=== PATIENT | female | born 1965 | race Caucasian/White ===

== ENCOUNTER → 2017-12-12 15:06 | Outpatient (CLI) | payer OTHER, SELFPAY ==
--- NOTE | 2017-12-12 15:12 | XR_ITS ---
XR hip LT 2-3V w/pelvis HISTORY: ITS.REASON: LEFT HIP PAIN ORDERING PHYSICIAN: Rikc Salcedo MD PATIENT AGE: 52 years COMPARISON: 09/29/2014 FINDINGS: No acute fracture or dislocation. There are mild osteoarthritic changes of the left hip. There are prominent fairly well-circumscribed cystic changes involving the supra-acetabular region. This measures approximately 3 x 2.6 cm. Etiology is indeterminate. Somewhat more extensive and worsening the joint than what one would expect for subarticular cystic change. Otherwise negative. IMPRESSION: 1. Mild osteoarthritis of left hip. 2. Multilocular cystic lesion of the supra-acetabular area on the left. This was present on an older CT scan. This may be slightly more extensive however, it is difficult to compare the plain film with a CT scan. Therefore, would recommend CT scan of the pelvis for better comparison and to ensure this is not progressing in this patient with left hip pain.
== END ==
PROVIDERS: PCP Internal Medicine Adolescent Medicine; Visit Provider Internal Medicine Adolescent Medicine
DX: M25.552 Pain in left hip (principal)
CPT/HCPCS: 73502

== ENCOUNTER → 2017-12-24 10:12 | Outpatient (CLI) | payer OTHER, SELFPAY ==
--- NOTE | 2017-12-24 10:19 | CT_ITS ---
CT pelvis wo/w con INDICATION: Left hip pain, cystic lesion of the left hip ITS.REASON: LEFT HIP PAIN ORDERING PHYSICIAN: Rick Salcedo MD PATIENT AGE: 52 years COMPARISON: 12/12/2017, 09/29/2014 TECHNIQUE: Axial images are obtained without and with contrast. Sagittal and coronal reformatted images are reviewed as well. All CT scans at the facility use one or more dose reduction, viz: automated exposure control; ma/kV adjustment per patient size (including targeted exams where dose is matched to indication; i.e. head); or iterative reconstruction technique. FINDINGS: There is a well-defined multilocular lucent lesion involving the supra-acetabular region of the left hip . No obvious internal matrix. The lesion measures up to 2 cm transverse and 2 cm cephalad to caudad with a anterior component which extends cephalad to caudad through 3.3 cm. This lesion is slightly larger than when compared to a CT scan of the abdomen and pelvis of 09/29/2014 however the margins are well-circumscribed. This does not have an aggressive appearance and no obvious internal matrix. At least one small component of the lesion extends to the articular surface laterally. This could represent a complex geode/subarticular cyst. It does not demonstrate contrast enhancement. Previously the largest portion of the nodule measured 1.7 x 1.2 cm with the anterior extension of the lesion of approximately 3 cm. There is no evidence of the soft tissue component. No fracture or break through of the lesion into the cortex. No periosteal reaction. No other significant anomalies evident. IMPRESSION: Well-circumscribed lesion of the left supra-acetabular area as described above is slightly larger when compared September 29, 2014. The lesion however has a benign appearance and may represent a complex subarticular cyst. Giant cell tumor, fibrous dysplasia, or aneurysmal bone cyst is considered in the differential diagnosis. Bone scan may be of further value to determine activity of the lesion. If bone scan is not performed then, would recommend a [address] follow-up to confirm short-term stability
== END ==
PROVIDERS: Family Provider Internal Medicine Adolescent Medicine; PCP Internal Medicine Adolescent Medicine; Visit Provider Internal Medicine Adolescent Medicine
DX: M25.552 Pain in left hip (principal)
CPT/HCPCS: 72194; Q9967

== ENCOUNTER 2018-01-23 15:36 | Observation (INO) ==
--- NOTE | 2018-01-23 16:00 | Consult Report ---
History of Present Illness Consult date: 01/23/18 Requesting physician: Rick Salcedo Consult reason: chest pain Chief complaint: chest pain Additional Medical History:: 1. Tobacco use, 1 pack per day 35 years 2. Depression 3. Strong family history for coronary artery disease in both her mother and sister in their 40s and 50s. History of present illness: 52-year-old white female with history of tobacco use and strong family history of coronary artery disease was admitted from Dr. Salcedo's office today for 4 day history of recurrent chest pain. Patient describes the chest pain as substernal with radiation to the left side and into the left arm that lasted for up to 60 minutes at a time. Symptoms resolve with rest or taking ibuprofen. She has been taken an aspirin 81 mg daily for the last 4 days. She denies any history of diabetes, treatment for hypertension or hyperlipidemia. She does have a strong family history of coronary disease in her mother and sister with her sister having an [place] in the last few weeks. She does smoke a pack of cigarettes per day and has for 35 years. Chest discomfort seems to occur more so with daily activities and improves with rest. In Dr. Salcedo's office today patient had an EKG with reported new changes. She was subsequently admitted for further evaluation and treatment. Cardiology consulted for evaluation and treatment. Review of Systems - *Cardiovascular Reports chest pain - *Respiratory Reports shortness of breath - *Gastrointestinal Denies abdominal pain - *Genitourinary Denies abnormal periods - *Musculoskeletal Denies abnormal walking - *Neurologic Denies abnormal walking, Denies lack of coordination Exam - *Routine Neck Exam Absent: JVD, carotid bruit - *Routine Respiratory Exam Present: CTA bilaterally. Absent: rhonchi, wheezes - *Routine Cardiovascular Exam Present: RRR. Absent: murmur, gallop, rubs - *Routine Extremities Exam Absent: edema - *Routine Neurological Exam Present: alert, oriented X3, moving all extremities Assessment and Plan (1) Unstable angina pectoris Current visit: Yes Status: Acute Category: Medical Code(s): I20.0 - Unstable angina (2) Tobacco use Current visit: Yes Status: Acute Category: Social Hx Code(s): Z72.0 - Tobacco use (3) Family history of coronary artery disease Current visit: Yes Status: Acute Category: Medical Code(s): Z82.49 - Family history of ischemic heart disease and other diseases of the circulatory system - Assessment and plan all Dx Assessment and Plan for all problems:: 1. Continue aspirin 81 mg daily and start beta-delmar along with a dose of Lovenox this evening. Patient appears to have unstable angina pectoris and will plan to proceed with left heart catheterization in the a.m. Risks, benefits and procedure explained to the patient and she agrees to proceed. 2. Labwork pending at this time. IF troponins positive, then add Brilinta.
[2018-01-23 16:37] LABS: Alanine Aminotransferase 56 U/L (12-78); Albumin Level 3.8 gm/dL (3.4-5.0); Albumin/Globulin Ratio 0.9 (1.1-1.8); Alkaline Phosphatase 234 U/L (46-116); Anion Gap 14.8 mEq/L (5-15); Aspartate Amino Transferase 21 U/L (15-37); Bilirubin,Total 0.3 mg/dL (0.2-1.0); Blood Urea Nitrogen 16 mg/dL (7-18); Calcium 9.1 mg/dL (8.5-10.1); Carbon Dioxide 25 mmol/L (21.0-32.0); Chloride 105 mmol/L (98-107); Cholesterol 217 mg/dL (140-200); Globulin 4.2 gm/dl (1.3-3.2); Glucose 105 mg/dL (74-106); HDL Cholesterol 43 mg/dL (29-89); LDL Cholesterol 146 mg/dL (0-130); Potassium 3.8 mmoL/L (3.5-5.1); Sodium 141 mmol/L (136-145); Triglycerides 138 mg/dL (30-200); VLDL Cholesterol 28 mg/dL (0-40)
--- NOTE | 2018-01-23 17:42 | History & Physical Report ---
*Admission Date: 01/23/18 *Chief complaint: Chest pain *History of present illness: 52-year-old white female with significant family history of early coronary disease in sister and mother, who came to my office with 5 days of increasing left shoulder and anterior chest pain, worse with exercise and waking her up from sleep. She has no palpitations or edema. Is continuing to smoke cigarettes. In the office EKG showed new anterior changes with some poor R-wave progression. Admitted to hospital for accelerating angina, abnormal EKG and for left heart catheterization evaluation. [facility] History I have reviewed the patient's past medical history: Yes Medical History: Denies:: Cancer, Diabetes Mellitus Type 1, Diabetes Mellitus Type 2, MRSA Other Surgeries: Yes: Cholecystectomy, Hysterectomy-Total Amputation: No Fractures: No - *Social History Educational Level: Completed GED/General Educational Development Smoking Status: Current every day smoker Tobacco Type: cigarettes # Packs/Day (cigarettes): 1 Alcohol Intake: never Occupational Status: employed Housing: house Household Members: spouse - Psychiatric History Expresses thoughts of harming self/others: None Suicide Plan Description: No Plan *Family Hx:: Coronary Artery Disease, Diabetes, Heart Attack Review of Systems - Constitutional Denies body ache(s), Denies chills, Denies daytime sleepiness, Denies excessive sweating - Eyes Denies blind spots, Denies blurry vision, Denies change in vision - ENT Denies abnormal hearing, Denies change in voice, Denies poor balance - *Cardiovascular Reports chest pain, Reports chest pain at rest, Reports chest pain with activity , Reports shortness of breath, Reports shortness of breath with activity, Denies generalized swelling, Denies irregular heart rhythm, Denies leg swelling , Denies lightheadedness, Denies shortness of breath when lying down, Denies rapid, pounding, or irregular heartbeat - *Respiratory Denies change in phlegm color, Denies chest congestion, Denies cough - *Gastrointestinal Denies abdominal pain, Denies belching, Denies change in bowel habits, Denies coffee ground vomit, Denies constipation - *Musculoskeletal Denies abnormal walking, Denies joint pain - Integumentary/Breasts Denies bleeding lesions - *Neurologic Denies abnormal walking, Denies lack of coordination - Psychiatric Reports anxiety, Denies abnormal sleep pattern, Denies lack of enjoyment - Endocrine Denies cold intolerance, Denies excessive sweating, Denies rapid, pounding, or irregular heartbeat Meds Home Medications Medication Instructions Recorded Confirmed Type Vilazodone HCl [Viibryd] 20 mg PO DAILY 01/23/18 01/23/18 History diazePAM [diazePAM 5mg Tablet] 5 mg PO NEEDED PRN 01/23/18 01/23/18 History Allergies Allergy/AdvReac Type Severity Reaction Status Date / Time No Known Allergies Allergy Verified 01/23/18 16:33 Exam Vital signs and Labs for Last 24 Hours: Temp Pulse Resp BP Pulse Ox 97.0 F L 59 L 18 117/75 95 01/23/18 16:06 01/23/18 16:06 01/23/18 16:06 01/23/18 16:06 01/23/18 16:06 Laboratory Results - last 24 hr 01/23/18 15:50: Sodium 141, Potassium 3.8, Chloride 105, Carbon Dioxide 25, Anion Gap 14.8, BUN 16, Creatinine 0.79, Estimated Creat Clear 98, Estimated GFR 76, Est GFR ( Amer) 92, Glucose 105, Calcium 9.1, Magnesium 1.9, Total Bilirubin 0.3, AST 21, ALT 56, Alkaline Phosphatase 234 H, Troponin I < 0.02, Total Protein 8.0, Albumin 3.8, Globulin 4.2 H, Albumin/Globulin Ratio 0.9 L, Triglycerides 138, Cholesterol 217 H, LDL Cholesterol 146 H, VLDL Cholesterol 28, HDL Cholesterol 43, Cholesterol/HDL Ratio 5.0 H I & O for Last 24 hours: Intake & Output 01/21/18 01/22/18 01/23/18 01/24/18 11:59 11:59 11:59 11:59 Weight 164 lb 1 oz - Constitutional no acute distress, obese - *Routine HEENT Exam Head: Present: normocephalic, atraumatic Eye: Present: EOMI, PERRL ENT: Present: mucous membranes moist - *Routine Neck Exam Present: supple, full ROM. Absent: JVD, carotid bruit - *Routine Respiratory Exam Present: CTA bilaterally. Absent: accessory muscle use - *Routine Cardiovascular Exam Present: RRR, Normal S1, Normal S2. Absent: murmur - *Routine Abdominal Exam Present: soft, normoactive bowel sounds. Absent: tenderness - *Routine Extremities Exam Present: full ROM. Absent: cyanosis, clubbing, edema - *Routine Neurological Exam Present: alert, oriented X3, CN II-XII intact H&P: Result - Labs Labs: BMP 01/23/18 15:50 Sodium 141 Potassium 3.8 Chloride 105 Carbon Dioxide 25 BUN 16 Creatinine 0.79 Glucose 105 Calcium 9.1 Cardiac Enzymes 01/23/18 Range/Units 15:50 Troponin I < 0.02 (0.00-0.06) ng/ml Liver Function 01/23/18 Range/Units 15:50 Total Bilirubin 0.3 (0.2-1.0) mg/dL AST 21 (15-37) U/L ALT 56 (12-78) U/L Alkaline Phosphatase 234 H (46-116) U/L Albumin 3.8 (3.4-5.0) gm/dL Assessment and Plan (1) Unstable angina pectoris Current visit: Yes Status: Acute Category: Medical Code(s): I20.0 - Unstable angina (2) Tobacco use Current visit: Yes Status: Acute Category: Social Hx Code(s): Z72.0 - Tobacco use (3) Family history of coronary artery disease Current visit: Yes Status: Acute Category: Medical Code(s): Z82.49 - Family history of ischemic heart disease and other diseases of the circulatory system - Assessment and plan all Dx Assessment and Plan for all problems:: Plan will be to admit to hospital, rule out [place]. Close observation. Cardiology consultation.
--- NOTE | 2018-01-24 07:23 | Pharmacy Consult Notes ---
[facility] Pharmacy VTE Monitoring - Patient Demographics Admission date: 01/24/18 Report Date: 01/24/18 Time: 07:22 Allergies/Adverse Reactions: Patient Allergies No Known Allergies Allergy (Verified 01/23/18 16:33) Height: 1.57 m Weight: 78.982 kg Patient Problems: Current Active Problems Unstable angina pectoris (Acute) Tobacco use (Acute) Family history of coronary artery disease (Acute) - VTE Risk Labs: VTE Related Lab Results BUN 16 mg/dL (7-18) 01/23/18 15:50 Creatinine 0.79 mg/dL (0.55-1.02) 01/23/18 15:50 Estimated Creat Clear 98 mL/min (0-300) 01/23/18 15:50 Was VTE Risk Assessment Performed: Yes VTE Score: 2 VTE Risk Level: Very Low Risk Clinical Trial Participant: No - Prophylaxis VTE Prophylaxis Ordered?: Yes Types of VTE Prophylaxis: TEDS Knee High
--- NOTE | 2018-01-24 07:56 | Progress Note ---
Internal Medicine - PN: Subj *Date: 01/24/18 *Time: 07:55 Interval history: Had some pain overnight that responded to morphine. This was more atypical pain. This morning she has no complaints. Exam Vital signs and Labs for Last 24 Hours: Temp Pulse Resp BP Pulse Ox 97.7 F 65 16 106/69 94 L 01/24/18 04:00 01/24/18 04:00 01/24/18 04:00 01/24/18 04:00 01/24/18 04:00 Laboratory Results - last 24 hr 01/23/18 15:50: Sodium 141, Potassium 3.8, Chloride 105, Carbon Dioxide 25, Anion Gap 14.8, BUN 16, Creatinine 0.79, Estimated Creat Clear 98, Estimated GFR 76, Est GFR ( Amer) 92, Glucose 105, Calcium 9.1, Magnesium 1.9, Total Bilirubin 0.3, AST 21, ALT 56, Alkaline Phosphatase 234 H, Troponin I < 0.02, Total Protein 8.0, Albumin 3.8, Globulin 4.2 H, Albumin/Globulin Ratio 0.9 L, Triglycerides 138, Cholesterol 217 H, LDL Cholesterol 146 H, VLDL Cholesterol 28, HDL Cholesterol 43, Cholesterol/HDL Ratio 5.0 H 01/23/18 18:50: Troponin I < 0.02 01/23/18 22:00: Troponin I < 0.02 I & O for Last 24 hours: Intake & Output 01/21/18 01/22/18 01/23/18 01/24/18 11:59 11:59 11:59 11:59 Intake Total 726 / 726 Balance 726 / 726 Weight 174 lb 2 oz Narrative: Heart rate regular, lungs clear. Abdomen soft. Alert and oriented 3. Assessment and Plan (1) Unstable angina pectoris Current visit: Yes Status: Acute Category: Medical Code(s): I20.0 - Unstable angina (2) Tobacco use Current visit: Yes Status: Acute Category: Social Hx Code(s): Z72.0 - Tobacco use (3) Family history of coronary artery disease Current visit: Yes Status: Acute Category: Medical Code(s): Z82.49 - Family history of ischemic heart disease and other diseases of the circulatory system - Assessment and plan all Dx Assessment and Plan for all problems:: Cardiac catheterization today.
[2018-01-24 08:30] LABS: Basophils % 0.5 % (0.1-2.0); Eosinophils # 0.1 K/mm3 (0.0-0.4); Eosinophils % 1.7 % (0.1-12.0); Hematocrit 44.6 % (37.0-47.0); Hemoglobin 14.1 g/dL (12.2-16.2); Lymphocytes # 3.6 K/mm3 (0.7-4.5); Lymphocytes % 43.2 K/mm3 (10-50); Mean Corpuscular HGB Conc 31.7 g/dL (31.8-35.4); Mean Corpuscular Hemoglobin 28.7 pg (27.0-31.2); Mean Corpuscular Volume 90.6 fl (81-99); Mean Platelet Volume 8.1 fl (7.4-10.4); Monocytes # 0.6 K/mm3 (0.1-1.0); Monocytes % 6.8 % (1.7-9.3); Neutrophils # 3.9 K/mm3 (1.8-7.8); Neutrophils % 47.9 % (37.0-80.0); Platelet Count 210 K/mm3 (142-424); Red Blood Count 4.92 M/mm3 (4.20-5.40); Red Cell Distribution Width 13.8 % (11.5-17.5); White Blood Count 8.2 K/mm3 (4.8-10.8)
--- NOTE | 2018-02-14 09:14 | Discharge Summary ---
General - General Admission date:: 01/23/18 Discharge date: 01/24/18 HPI HPI: 52-year-old white female with significant family history of early coronary disease in sister and mother, who came to my office with 5 days of increasing left shoulder and anterior chest pain, worse with exercise and waking her up from sleep. She has no palpitations or edema. Is continuing to smoke cigarettes. In the office EKG showed new anterior changes with some poor R-wave progression. Admitted to hospital for accelerating angina, abnormal EKG and for left heart catheterization evaluation. Hospital Course Hospital Course: Patient was admitted to hospital, placed on telemetry monitoring, electrolytes and blood counts were normal. Patient was ruled out for myocardial infarction by serial enzymes. Because of her significant anginal pattern and EKG and normality she was subjected to left heart catheterization the following morning on January 24, and the results are noted as below: ANGIOGRAPHIC RESULTS: 1. The left main artery normal 2. The left anterior descending artery has a proximal 30-40% stenosis. The remaining vessel is normal however the mid and distal segments are small caliber 3. The circumflex artery is a nondominant vessel and normal 4. The right coronary artery is a dominant vessel and has a proximal concentric 30% stenosis 5. The CERVANTES ventriculogram reveals normal 65% 6. The left ventricular end-diastolic pressure severely elevated at 35 mmHg IMPRESSION: 1. Moderate proximal LAD disease 2. Mild proximal dominant right coronary artery disease 3. Normal ejection fraction 4. Severe diastolic dysfunction PLAN: 1. Patient would benefit from diuresis 2. Control of hypertension 3. Aspirin 81 mg daily 4. LDL less than 55 5. Risk factor modification Patient did well after the procedure. She was discharged home on medications as noted. Follow-up in our office Objective Vital signs: Temp Pulse Resp BP Pulse Ox 97.7 F 56 L 18 93/64 95 01/24/18 16:12 01/24/18 16:12 01/24/18 16:12 01/24/18 16:12 01/24/18 16:12 Narrative: Physical exam notes on the day of discharge. DS: Diagnosis - Discharge Diagnosis (1) Unstable angina pectoris Status: Ruled-out (2) Tobacco use Status: Acute (3) Family history of coronary artery disease Status: Acute Discharge Plan - Patient Discharge Instructions Patient Instructions: DI for Chest Pain, How to Quit Tobacco Products - Follow up Plan Disposition: Home, Self-Care Prescriptions/Medication Reconciliation: New Omeprazole [Omeprazole 20mg Tab] 20 mg PO DAILY #30 tab Continue Vilazodone HCl [Viibryd] 20 mg PO DAILY #30 tablet Discontinued diazePAM [diazePAM 5mg Tablet] 5 mg PO BIDP PRN PRN Reason: Anxiety No Action atorvastatin 40 mg tablet 40 mg PO HS #30 tab aspirin 81 mg chewable tablet 81 mg PO DAILY #30 tab hydrochlorothiazide 25 mg tablet 25 mg PO DAILY #30 tab
== END 2018-01-24 15:30 | disposition home or self-care (01) ==
LOC: 2ND
PROVIDERS: ADMIT Internal Medicine Adolescent Medicine; ATTEND Internal Medicine Adolescent Medicine

== ENCOUNTER → 2018-02-04 09:36 | Outpatient (CLI) | payer OTHER, SELFPAY ==
[2018-02-04 12:59] LABS: Anion Gap 14.6 mEq/L (5-15); Blood Urea Nitrogen 11 mg/dL (7-18); Calcium 8.8 mg/dL (8.5-10.1); Carbon Dioxide 31 mmol/L (21.0-32.0); Chloride 99 mmol/L (98-107); Creatinine,Serum 0.65 mg/dL (0.55-1.02); Estimated Glomerular Filt Rate 96 ml/min (>60); GFR (African American) 116 ML/MIN (>60); Glucose 126 mg/dL (74-106); Potassium 3.6 mmoL/L (3.5-5.1); Sodium 141 mmol/L (136-145)
== END ==
PROVIDERS: Visit Provider Physician Assistant
DX: I20.0 Unstable angina (principal)
CPT/HCPCS: 36415; 80048

== ENCOUNTER → 2018-03-04 11:45 | Outpatient (CLI) | payer OTHER, SELFPAY ==
--- NOTE | 2018-03-04 11:50 | XR_ITS ---
XR chest 2V HISTORY: ITS.REASON: HTN,H/O TOBACCO USE ORDERING PHYSICIAN: Lily Wilkerson DPM PATIENT AGE: 52 years COMPARISON: PA and lateral chest 01/23/2018 FINDINGS: The cardiomediastinal silhouette and pulmonary vascularity are within normal limits. The lungs are clear without infiltrates, suspicious nodules, or pleural effusions. No acute bony abnormalities. IMPRESSION: Negative chest, no acute finding
== END ==
PROVIDERS: PCP Internal Medicine Adolescent Medicine; Visit Provider Podiatrist
DX: Z01.818 Encounter for other preprocedural examination (principal); S92.501A Displaced unspecified fracture of right lesser toe(s), initial encounter for closed fracture
CPT/HCPCS: 71046

== ENCOUNTER → 2018-03-29 11:01 | Outpatient (CLI) | payer OTHER, SELFPAY ==
--- NOTE | 2018-03-29 11:05 | XR_ITS ---
XR foot wt bearing RT 3V HISTORY: Follow-up surgery ITS.REASON: post-op views ORDERING PHYSICIAN: Lily Wilkerson DPM PATIENT AGE: 52 years COMPARISON: 03/06/2018 FINDINGS: A metal pin is again noted extending from the distal aspect of the distal phalanx into the dorsal and proximal aspect of the proximal phalanx. Nondisplaced oblique fracture of the proximal phalanx once again noted unchanged. There is good alignment of the bony fragments. IMPRESSION: Good alignment status post pin placement through the comminuted fracture proximal phalanx
== END ==
PROVIDERS: PCP Internal Medicine Adolescent Medicine; Visit Provider Podiatrist
DX: Z98.890 Other specified postprocedural states (principal)
CPT/HCPCS: 73630

== ENCOUNTER → 2018-05-08 07:04 | Outpatient (CLI) | payer OTHER, SELFPAY ==
[2018-05-08 14:01] LABS: Alanine Aminotransferase 91 U/L (12-78); Albumin Level 3.4 gm/dL (3.4-5.0); Alkaline Phosphatase 280 U/L (46-116); Aspartate Amino Transferase 61 U/L (15-37); Bilirubin,Direct 0.2 mg/dL (0.0-0.2); Bilirubin,Indirect 0.3 mg/dL (0.0-0.9); Bilirubin,Total 0.5 mg/dL (0.2-1.0); Cholesterol 118 mg/dL (140-200); HDL Cholesterol 39 mg/dL (29-89); LDL Cholesterol 65 mg/dL (0-130); Total Protein,Serum 6.6 gm/dL (6.4-8.2); Triglycerides 70 mg/dL (30-200); VLDL Cholesterol 14 mg/dL (0-40)
== END ==
PROVIDERS: PCP Internal Medicine Adolescent Medicine; Visit Provider Internal Medicine Cardiovascular Disease
DX: I25.10 Atherosclerotic heart disease of native coronary artery without angina pectoris (principal); I10 Essential (primary) hypertension; E78.5 Hyperlipidemia, unspecified; I50.30 Unspecified diastolic (congestive) heart failure
CPT/HCPCS: 36415; 80061; 80076

== ENCOUNTER → 2018-05-13 09:17 | Outpatient (CLI) | payer OTHER, SELFPAY ==
--- NOTE | 2018-05-13 09:19 | CA_ITS ---
PROCEDURE: 2-D M-mode and color Doppler study INDICATIONS FOR THE TEST: Chest pain+ COPD Heart Murmur Tobacco Smoking+ Palpitations+ Fatigue+ Syncope Edema+ Hypertension+Diabetes Mellitus Rheumatic Fever SOB VICKERS Obesity Hyperlipidemia+ Family History HD+ Additional History diastolic dysfunction, CAD PATIENT INFORMATION HEIGHT: 62 WEIGHT: 176 GENDER: Female B/P: 122/68 2-D/M-MODE INTERPRETATION: 2-D MEASUREMENTS OBSERVED VALUES IN CMS Right Ventricular Dimension (RVDd) 2.0 Interventricular Septum (Thickness)(IVsd) 1.0 Left Ventricular Internal Dimensions(LVIDd) 3.1 Left Ventricular Posterior Wall (Thickness)(LVPWd) 1.0 Aortic Root 2.3 Aortic Cusp Separation 2.0 Left Atrial Dimensions (LAD) 2.6 2D 1. Left atrium is normal size, left ventricle is normal size, there is no concentric left ventricular hypertrophy, visually estimated ejection fraction 55% with no regional wall motion abnormality. 2. The right atrium and right ventricle are normal size and contractility. 3. The aortic valve, mitral and tricuspid valvular grossly normal. 4. The pulmonic valve is poorly visualized. 5. No significant pericardial effusion noted. DOPPLER INTERROGATION: Doppler interrogation of the aortic, mitral and tricuspid valvular presence of mild mitral and tricuspid regurgitation, tricuspid regurgitation jet velocity is insufficient for calculation of the right ventricular systolic pressure, diastolic parameters are within normal range. CONCLUSION: 1. Normal left ventricular size, visually estimated ejection fraction 55% with no regional wall motion abnormality, diastolic parameters are within normal range. 2. Mild mitral and tricuspid regurgitation 3. No significant pericardial effusion noted.
== END ==
PROVIDERS: Family Provider Internal Medicine Adolescent Medicine; PCP Internal Medicine Adolescent Medicine; Visit Provider Internal Medicine
DX: I50.30 Unspecified diastolic (congestive) heart failure (principal); I25.10 Atherosclerotic heart disease of native coronary artery without angina pectoris; R07.9 Chest pain, unspecified; Z72.0 Tobacco use; Z82.49 Family history of ischemic heart disease and other diseases of the circulatory system
CPT/HCPCS: 93306

== ENCOUNTER → 2018-06-04 13:26 | Outpatient (CLI) | payer OTHER, SELFPAY ==
--- NOTE | 2018-06-04 13:27 | CT_ITS ---
CT chest wo con HISTORY: ITS.REASON: cough ORDERING PHYSICIAN: Adam Mast MD PATIENT AGE: 52 years COMPARISON: None Technique: Axial images obtained with sagittal and coronal reformats. All CT scans at the facility use one or more dose reduction, viz: automated exposure control, ma/kV adjustment per patient size (including targeted exams where dose is matched to indication, i.e. head), or iterative reconstruction technique. FINDINGS: There are scattered small nodes within the mediastinum. The largest node is in the right precarinal region measuring up to 1.5 x 1 cm. Coronary artery calcifications are present. There is normal heart size without evidence of pericardial effusion. No obvious mediastinal or hilar mass evident. There is mild coarsening of the bronchovascular markings with slight increased density in the mid and lower lung zones having a somewhat mosaic appearance which may be seen with COPD. There is a calcified granuloma in the right middle lobe with associated atelectatic or fibrotic change in the right middle lobe laterally. There is also mild fibrotic change left lung base. No central obstructing lesion is evident. No effusions. No lobar consolidation or collapse. Upper abdominal images show no acute finding. IMPRESSION: 1. There is mild coarsening of the bronchovascular markings with some patchy mosaic attenuation of the mid and lower lung zones. This is nonspecific but can be seen with smoking related lung disease/COPD. Bronchitis with mild pneumonitis is also a consideration. 2. Old granulomatous disease. 3. Coronary artery calcification
== END ==
PROVIDERS: Family Provider Internal Medicine Adolescent Medicine; PCP Internal Medicine Adolescent Medicine; Visit Provider Internal Medicine
DX: I11.9 Hypertensive heart disease without heart failure (principal); I25.10 Atherosclerotic heart disease of native coronary artery without angina pectoris; R05 Cough; Z72.0 Tobacco use
CPT/HCPCS: 71250

== ENCOUNTER → 2019-09-10 07:05 | Outpatient (CLI) | payer OTHER, SELFPAY ==
[2019-09-10 13:46] LABS: Basophils % 0.6 % (0.1-2.0); Eosinophils # 0.3 K/mm3 (0.0-0.4); Eosinophils % 3.3 % (0.1-12.0); Hematocrit 43.8 % (37.0-47.0); Hemoglobin 14.2 g/dL (12.2-16.2); Lymphocytes # 2.7 K/mm3 (0.7-4.5); Lymphocytes % 34.5 % (10-50); Mean Corpuscular HGB Conc 32.6 g/dL (31.8-35.4); Mean Corpuscular Hemoglobin 29.4 pg (27.0-31.2); Mean Corpuscular Volume 90.3 fl (81-99); Mean Platelet Volume 8.8 fl (7.4-10.4); Monocytes # 0.4 K/mm3 (0.1-1.0); Monocytes % 5.4 % (1.7-9.3); Neutrophils # 4.3 K/mm3 (1.8-7.8); Neutrophils % 56.1 % (37.0-80.0); Platelet Count 304 K/mm3 (142-424); Red Blood Count 4.84 M/mm3 (4.20-5.40); Red Cell Distribution Width 14.7 % (11.5-17.5); White Blood Count 7.7 K/mm3 (4.8-10.8)
[2019-09-10 13:54] LABS: Alanine Aminotransferase 120 U/L (12-78); Albumin Level 3.6 gm/dL (3.4-5.0); Albumin/Globulin Ratio 1.1 (1.1-1.8); Alkaline Phosphatase 325 U/L (46-116); Anion Gap 15.6 mEq/L (5-15); Aspartate Amino Transferase 72 U/L (15-37); Bilirubin,Total 0.5 mg/dL (0.2-1.0); Blood Urea Nitrogen 21 mg/dL (7-18); Calcium 8.8 mg/dL (8.5-10.1); Carbon Dioxide 27 mmol/L (21.0-32.0); Chloride 105 mmol/L (98-107); Chol/HDL Ratio 5.8 (1-3.5); Cholesterol 179 mg/dL (140-200); Creatinine,Serum 0.73 mg/dL (0.55-1.02); Estimated Glomerular Filt Rate 83 ml/min (>60); GFR (African American) 101 ML/MIN (>60); Globulin 3.4 gm/dl (1.3-3.2); Glucose 114 mg/dL (74-106); HDL Cholesterol 31 mg/dL (29-89); LDL Cholesterol 125 mg/dL (0-130); Potassium 4.6 mmoL/L (3.5-5.1); Sodium 143 mmol/L (136-145); Triglycerides 117 mg/dL (30-200); VLDL Cholesterol 23 mg/dL (0-40)
[2019-09-11 12:33] LABS: Vitamin D 25 Hydroxy 33.5 ng/mL (30.0-100.0)
[2019-09-11 14:12] LABS: Gamma Glutamyl Transpeptidase 266 U/L (5-55)
[2019-09-20 18:21] LABS: Antinuclear Antibodies, IFA POSITIVE ABNORMAL; Hep A Ab, IgM NEGATIVE; Hepatitis B Core Antibody IgM NEGATIVE; Hepatitis B Surface Antigen NEGATIVE; Hepatitis C Antibody 0.1; Mitochondrial (M2) Antibody <20.0
== END ==
PROVIDERS: PCP Internal Medicine Adolescent Medicine; Visit Provider Internal Medicine Adolescent Medicine
DX: E78.5 Hyperlipidemia, unspecified (principal); E55.9 Vitamin D deficiency, unspecified; R74.8 Abnormal levels of other serum enzymes
CPT/HCPCS: 36415; 80053; 80061; 80074; 82390; 82652; 82977; 85025; 86038; 86256

== ENCOUNTER → 2019-09-15 07:43 | Outpatient (CLI) | payer OTHER, SELFPAY ==
--- NOTE | 2019-09-15 07:47 | US_ITS ---
PROCEDURE: US LIVER CLINICAL INDICATION: ELEVATED LIVER ENZYMES COMPARISON: CHESTWO CT chest wo con from 06/04/2018 FINDINGS: PANCREAS: Unremarkable. No obvious mass or abnormal fluid collection. No ductal dilatation LIVER: There is diffuse heterogeneous echogenicity. No focal liver lesion is.. There is appropriate direction of blood flow within the non dilated portal vein. RIGHT KIDNEY: Unremarkable. Normal size and echogenicity. No hydronephrosis GALLBLADDER: Prior cholecystectomy. Common bile duct is 6 mm. IMPRESSION: Heterogeneous hepatic echogenicity. This is nonspecific and may be better evaluated MRI or CT without and with enhancement. Prior cholecystectomy. Dictated by: Aries Vanessa MD 09/15/2019 10:25 Electronically signed by Aries Vanessa MD in [place] 09/15/2019 10:25
== END ==
PROVIDERS: PCP Internal Medicine Adolescent Medicine; Visit Provider Internal Medicine Adolescent Medicine
DX: R74.8 Abnormal levels of other serum enzymes (principal)
CPT/HCPCS: 76705

== ENCOUNTER → 2019-09-29 07:48 | Outpatient (CLI) | payer OTHER, SELFPAY ==
[2019-10-01 16:28] LABS: Ceruloplasmin 53.5 mg/dL (19.0-39.0)
== END ==
PROVIDERS: Visit Provider Internal Medicine Adolescent Medicine
DX: R74.8 Abnormal levels of other serum enzymes (principal)
CPT/HCPCS: 36415; 82390

== ENCOUNTER → 2019-10-01 07:08 | Outpatient (CLI) | payer OTHER, SELFPAY ==
[2019-10-01 14:15] LABS: Basophils % 0.5 % (0.1-2.0); Eosinophils # 0.2 K/mm3 (0.0-0.4); Hematocrit 42.3 % (37.0-47.0); Lymphocytes # 2.4 K/mm3 (0.7-4.5); Lymphocytes % 29.2 % (10-50); Mean Corpuscular HGB Conc 33.1 g/dL (31.8-35.4); Mean Corpuscular Hemoglobin 28.9 pg (27.0-31.2); Mean Corpuscular Volume 87.2 fl (81-99); Mean Platelet Volume 9.1 fl (7.4-10.4); Monocytes # 0.6 K/mm3 (0.1-1.0); Monocytes % 7.1 % (1.7-9.3); Neutrophils # 4.9 K/mm3 (1.8-7.8); Neutrophils % 60.2 % (37.0-80.0); Platelet Count 295 K/mm3 (142-424); Red Blood Count 4.85 M/mm3 (4.20-5.40); Red Cell Distribution Width 14.2 % (11.5-17.5); White Blood Count 8.1 K/mm3 (4.8-10.8)
[2019-10-01 14:53] LABS: Alanine Aminotransferase 181 U/L (9-52); Albumin Level 3.6 g/dL (3.4-5.0); Alkaline Phosphatase 445 U/L (46-116); Anion Gap 16.5 mEq/L (5-15); Aspartate Amino Transferase 69 U/L (15-37); Bilirubin,Total 0.8 mg/dL (0.2-1.0); Blood Urea Nitrogen 19 mg/dL (7-18); Calcium 8.9 mg/dL (8.5-10.1); Carbon Dioxide 27 mmol/L (21.0-32.0); Chloride 103 mmol/L (98-107); Creatinine,Serum 0.74 mg/dL (0.55-1.02); Estimated Glomerular Filt Rate 82 ml/min (>60); GFR (African American) 99 ML/MIN (>60); Globulin 3.7 gm/dl (1.3-3.2); Glucose 120 mg/dL (74-106); Potassium 4.5 mmoL/L (3.5-5.1); Sodium 142 mmol/L (137-145); Total Protein,Serum 7.3 g/dL (6.4-8.2)
[2019-10-02 07:09] LABS: Testosterone,Total <3 ng/dL (3-41)
[2019-10-02 10:28] LABS: FSH 46.9 mIU/mL (.); LH 23.8 mIU/mL (.)
== END ==
PROVIDERS: Visit Provider Internal Medicine Adolescent Medicine
DX: R73.9 Hyperglycemia, unspecified (principal); R74.8 Abnormal levels of other serum enzymes
CPT/HCPCS: 36415; 80053; 83001; 83002; 83036; 84403; 85025

== ENCOUNTER → 2019-10-17 17:27 | Outpatient (CLI) | payer OTHER, SELFPAY ==
[2019-10-17 17:32] LABS: Microscopic, Urine URINE MICROSCOPIC (MICROSCOPIC)
--- NOTE | 2019-10-17 17:48 | XR_ITS ---
PROCEDURE: XR CHEST 2V CLINICAL HISTORY: FEVER, NIGHT SWEATS Cough, smoker COMPARISON: CXR CHEST(2 VIEWS-NOT PORTABLE) from 02/02/2016 CXR2V XR chest 2V from 01/23/2018 CXR2V XR chest 2V from 03/04/[address] chest wo con from 06/04/2018 FINDINGS: The cardiomediastinal silhouette and pulmonary vascularity are within normal limits. The lungs are clear without infiltrates, suspicious nodules, or pleural effusions. No acute bony abnormalities. IMPRESSION: No acute findings. Dictated by: Aries Vanessa MD 10/17/2019 18:27 Electronically signed by Aries Vanessa MD in [place] 10/17/2019 18:27
[2019-10-17 17:53] LABS: Basophils % 0.3 % (0.1-2.0); Eosinophils # 0.3 K/mm3 (0.0-0.4); Eosinophils % 2.5 % (0.1-12.0); Hematocrit 40.4 % (37.0-47.0); Hemoglobin 13.4 g/dL (12.2-16.2); Lymphocytes # 3.5 K/mm3 (0.7-4.5); Lymphocytes % 29.3 % (10-50); Mean Corpuscular Hemoglobin 28.5 pg (27.0-31.2); Mean Corpuscular Volume 86.3 fl (81-99); Mean Platelet Volume 8.3 fl (7.4-10.4); Monocytes # 0.6 K/mm3 (0.1-1.0); Monocytes % 5.2 % (1.7-9.3); Neutrophils # 7.4 K/mm3 (1.8-7.8); Neutrophils % 62.7 % (37.0-80.0); Platelet Count 325 K/mm3 (142-424); Red Blood Count 4.68 M/mm3 (4.20-5.40); Red Cell Distribution Width 14.2 % (11.5-17.5); White Blood Count 11.8 K/mm3 (4.8-10.8)
[2019-10-17 17:55] LABS: Appearance,Urine CLEAR (Clear); Bilirubin,Urine Negative (Negative); Blood, Urine TRACE-L (Negative); Color,Urine YELLOW (Yellow); Glucose,Urine (UA) Negative (Negative); Ketones,Urine Negative (Negative); Leukocyte Esterase,Urine Negative (Negative); Nitrate,Urine Negative (Negative); PH,Urine 6.5 (5.0-8.5); Protein,Urine Negative (Negative); Urobilinogen,Urine 0.2 EU/dl (0.2)
[2019-10-17 18:45] LABS: Alanine Aminotransferase 81 U/L (12-78); Albumin Level 4.3 g/dl (3.5-5.0); Albumin/Globulin Ratio 1.3 (1.1-1.8); Alkaline Phosphatase 341 U/L (38-126); Anion Gap 14.9 mEq/L (5-15); Aspartate Amino Transferase 46 U/L (14-36); Bilirubin,Total 0.7 mg/dl (0.2-1.3); Blood Urea Nitrogen 10 mg/dl (7-17); Calcium 9.1 mg/dl (8.4-10.2); Carbon Dioxide 27 mmol/L (22.0-30.0); Chloride 97 mmol/L (98-107); Estimated Glomerular Filt Rate 87 ml/min (>60); GFR (African American) 106 ML/MIN (>60); Globulin 3.2 g/dL (1.3-3.2); Glucose 97 mg/dl (74-100); Potassium 3.9 mmoL/L (3.5-5.1); Sodium 135 mmol/L (136-145); Total Protein,Serum 7.5 g/dl (6.3-8.2)
[2019-10-20 10:03] LABS: Cytomegalovirus (CMV) Ab, IgG >10.00 U/mL (0.00-0.59); Cytomegalovirus (CMV) Ab, IgM <30.0 AU/mL (0.0-29.9)
[2019-10-21 11:28] LABS: EBV Ab VCA, IgG >600.0 U/mL (0.0-17.9); EBV Ab VCA, IgM 65.6 U/mL (0.0-35.9)
== END ==
PROVIDERS: Visit Provider Internal Medicine Adolescent Medicine
DX: R50.9 Fever, unspecified (principal); R61 Generalized hyperhidrosis
CPT/HCPCS: 36415; 71046; 80053; 81001; 85025; 86644; 86645; 86665; 87040; 87086

== ENCOUNTER 2019-10-29 12:51 | Outpatient (CLI) | payer OTHER, SELFPAY ==
[2019-10-29 13:15] VITALS: BP 116/68; PULSE 92; RESP 20; TEMP 36.6; O2SAT 95
== END 2019-10-29 13:30 | disposition home or self-care (01) ==
LOC: INF 12:52
PROVIDERS: PCP Internal Medicine Adolescent Medicine; Visit Provider Internal Medicine Adolescent Medicine
DX: S29.011A Strain of muscle and tendon of front wall of thorax, initial encounter (principal); R50.9 Fever, unspecified
CPT/HCPCS: 96372

== ENCOUNTER → 2019-11-03 09:25 | Outpatient (CLI) | payer OTHER, SELFPAY ==
--- NOTE | 2019-11-03 09:30 | CT_ITS ---
PROCEDURE: CT CHEST W CON CLINCAL INDICATION: FEVER AND COUGH Tobacco use, smoker COMPARISON: CHESTWO CT chest wo con from 06/04/2018 CT ABDOMEN PELVIS W CON from 11/03/2019 TECHNIQUE: IV Contrast: 75ml Optiray 350 Axial images obtained with sagittal and coronal reformats. All CT scans at the facility use one or more dose reduction, viz: automated exposure control, ma/kV adjustment per patient size (including targeted exams where dose is matched to indication, i.e. head), or iterative reconstruction technique. FINDINGS: HEART AND MEDIASTINAL STRUCTURES: There are some mildly prominent mediastinal lymph nodes measuring up to 1.8 1.2 cm in the precarinal region and 1.2 by 0.8 cm in the AP window. These are slightly more prominent than when compared to the previous exam. Small nodes are present in the jose alberto as well. A right hilar node measures 2 by 0.9 cm. No evidence of pulmonary embolus or aortic aneurysm. LUNGS AND PLEURAL SPACES: There are changes of COPD. Atelectatic changes are present in the right middle lobe, right lower lobe, left lower lobe, and lingula. No lobar consolidation or collapse. No central obstructing lesions or suspicious masses. BONY STRUCTURES: No acute bony abnormalities apparent. UPPER ABDOMEN: See abdomen report ADDITIONAL FINDINGS: No other significant abnormalities. IMPRESSION: COPD with atelectatic changes and mildly prominent mediastinal and hilar lymph nodes. Consider 3 month follow-up to confirm stability of the lymph nodes Dictated by: Aries Vanessa MD 11/03/2019 16:47 Electronically signed by Aries Vanessa MD in [place] 11/03/2019 16:47
--- NOTE | 2019-11-03 09:30 | CT_ITS ---
PROCEDURE: CT ABDOMEN PELVIS W CON CLINICAL INDICATION: FEVER AND COUGH COMPARISON: ABDPELW/O CT ABD PELVIS W/O CONTRAST from 09/29/[address] pelvis wo/w con from 12/24/2017 TECHNIQUE: IV Contrast: 75ML OPTIRAY 350 Oral Contrast 450ml Redicat Axial images obtained with sagittal and coronal reformats. All CT scans at the facility use one or more dose reduction, viz: automated exposure control, ma/kV adjustment per patient size (including targeted exams where dose is matched to indication, i.e. head), or iterative reconstruction technique. FINDINGS: There are post cholecystectomy changes. Liver has an unremarkable appearance. There is borderline splenomegaly at 13 cm. No focal lesion is evident in the spleen except for multiple calcified granulomas. The pancreas has an unremarkable appearance. There are a few para-aortic and periportal lymph nodes present. There is an area isodense in the along the medial aspect of the pancreatic head measuring approximately 2.4 by 1.6 cm possibly due to an inferior extension of the caudate lobe of the liver versus an area of adenopathy.. This however does not appear significantly changed from 09/29/2014 the adrenal glands and kidneys have an unremarkable appearance. No evidence of appendicitis. There is a mild amount of retained colonic feces. No intestinal obstruction or free air is evident. No pelvic mass or abnormal fluid collection. There are post hysterectomy changes. There is a well-circumscribed cystic lesion involving the left ilium in the super acetabular area which is similar when compared to 12/24/2017. No new bony lesions are identified. IMPRESSION: 1. No acute abdominal or pelvic findings. 2. Moderate amount of retained colonic feces. 3. Stable well-circumscribed lucent lesion of the superior acetabular area on the left and may be due to a prominent subarticular cyst. Giant cell tumor, aneurysmal bone cyst, or fibrous dysplasia. The interval stability favors a benign process. Dictated by: Aries Vanessa MD 11/03/2019 17:07 Electronically signed by Aries Vanessa MD in [place] 11/03/2019 17:07
== END ==
PROVIDERS: PCP Internal Medicine Adolescent Medicine; Visit Provider Internal Medicine Adolescent Medicine
DX: R50.9 Fever, unspecified (principal); R05 Cough
CPT/HCPCS: 71260; 74177; Q9967

== ENCOUNTER → 2020-02-11 08:20 | Outpatient (CLI) | payer OTHER, SELFPAY ==
[2020-02-11 09:11] LABS: Basophils # 0.1 K/mm3 (0-0.2); Basophils % 0.6 % (0.1-2.0); Eosinophils # 0.2 K/mm3 (0.0-0.4); Hematocrit 45.1 % (37.0-47.0); Lymphocytes # 2.7 K/mm3 (0.7-4.5); Lymphocytes % 29.8 % (10-50); Mean Corpuscular HGB Conc 33.3 g/dL (31.8-35.4); Mean Corpuscular Hemoglobin 30.6 pg (27.0-31.2); Mean Corpuscular Volume 92.1 fl (81-99); Mean Platelet Volume 7.9 fl (7.4-10.4); Monocytes # 0.5 K/mm3 (0.1-1.0); Monocytes % 5.6 % (1.7-9.3); Neutrophils # 5.7 K/mm3 (1.8-7.8); Platelet Count 272 K/mm3 (142-424); Red Blood Count 4.89 M/mm3 (4.20-5.40); Red Cell Distribution Width 16.1 % (11.5-17.5); White Blood Count 9.2 K/mm3 (4.8-10.8)
[2020-02-11 09:36] LABS: INR 1.06 (0.9-1.1); Prothrombin Time 10.9 seconds (9.4-11.8)
[2020-02-11 09:58] LABS: Chloride 101 mmol/L (98-107); Potassium 4.8 mmoL/L (3.5-5.1); Sodium 138 mmol/L (136-145)
[2020-02-11 10:01] LABS: Alanine Aminotransferase 99 U/L (12-78); Albumin Level 4.2 g/dl (3.5-5.0); Albumin/Globulin Ratio 1.4 (1.1-1.8); Alkaline Phosphatase 371 U/L (38-126); Anion Gap 12.8 mEq/L (5-15); Aspartate Amino Transferase 58 U/L (14-36); Bilirubin,Total 0.7 mg/dl (0.2-1.3); Blood Urea Nitrogen 14 mg/dl (7-17); Calcium 9.4 mg/dl (8.4-10.2); Carbon Dioxide 29 mmol/L (22.0-30.0); Estimated Glomerular Filt Rate 87 ml/min (>60); GFR (African American) 106 ML/MIN (>60); Glucose 185 mg/dl (74-100); Iron 82 ug/dL (37-170); Total Protein,Serum 7.2 g/dl (6.3-8.2)
[2020-02-11 10:10] LABS: Total Iron Binding Capacity 409 ug/dL (265-497)
[2020-02-12 10:18] LABS: Ceruloplasmin 52.8 mg/dL (19.0-39.0); Immunoglobulin A, Qn 309 mg/dL (87-352); Immunoglobulin G, Qn 894 mg/dL (586-1602)
[2020-02-12 12:44] LABS: Actin (Smooth Muscle) Antibody 10 Units (0-19); Immunoglobulin M, Qn 190 mg/dL (26-217); Mitochondrial (M2) Antibody <20.0 Units (0.0-20.0)
[2020-02-12 14:26] LABS: Angiotensin Converting Enzyme 47 U/L (14-82)
[2020-02-13 08:46] LABS: Endomysial IgA Antibody Negative (Negative); Liver-Kidney Microsomal Ab <1.0 Units (0.0-20.0); Reticulin IgA Antibody Negative titer (Neg:<1:2.5)
[2020-02-14 07:10] LABS: ALT (SGPT) P5P 83 IU/L (0-40); AST (SGOT) P5P 49 IU/L (0-40); Alpha 2-Macroglobulins, Qn 232 mg/dL (110-276); Apolipoprotein A-1 134 mg/dL (116-209); Bilirubin, Total 0.3 mg/dL (0.0-1.2); Cholesterol, Total 227 mg/dL (100-199); Fibrosis Score 0.34 (0.00-0.21); Fibrosis Stage F1-F2 (.); GGT 357 IU/L (0-60); Glucose 184 mg/dL (65-99); Haptoglobin 254 mg/dL (33-346); Steatosis Score 0.94 (0.00-0.30); Triglycerides 169 mg/dL (0-149)
[2020-02-16 17:13] LABS: Alpha-1-Antitrypsin 211 mg/dL (101-187)
[2020-03-04 14:54] LABS: Deamidated Gliadin Abs, IgA 5; Deamidated Gliadin Abs, IgG 2
[2020-03-14 17:58] LABS: Tissue Transglutaminase IgA Ab <2; Tissue Transglutaminase IgG Ab <2
[2020-03-14 17:59] LABS: Antinuclear Antibodies (ANA) NEGATIVE
== END ==
PROVIDERS: Visit Provider Nurse Practitioner Family
DX: R94.5 Abnormal results of liver function studies (principal); K76.0 Fatty (change of) liver, not elsewhere classified
CPT/HCPCS: 36415; 80053; 81256; 82103; 82104; 82164; 82390; 82728; 82784; 83516; 83540; 83550; 85025; 85610; 86038; 86255; 86256; 86376

== ENCOUNTER → 2020-05-06 10:41 | Outpatient (CLI) | payer OTHER, SELFPAY ==
[2020-05-06 13:47] LABS: Basophils # 0.1 K/mm3 (0-0.2); Basophils % 0.8 % (0.1-2.0); Eosinophils # 0.2 K/mm3 (0.0-0.4); Eosinophils % 2.7 % (0.1-12.0); Hematocrit 45.5 % (37.0-47.0); Hemoglobin 15.3 g/dL (12.2-16.2); Lymphocytes # 2.6 K/mm3 (0.7-4.5); Lymphocytes % 32.5 % (10-50); Mean Corpuscular HGB Conc 33.7 g/dL (31.8-35.4); Mean Corpuscular Hemoglobin 30.5 pg (27.0-31.2); Mean Corpuscular Volume 90.7 fl (81-99); Mean Platelet Volume 8.9 fl (7.4-10.4); Monocytes # 0.5 K/mm3 (0.1-1.0); Monocytes % 6.5 % (1.7-9.3); Neutrophils # 4.5 K/mm3 (1.8-7.8); Neutrophils % 57.4 % (37.0-80.0); Platelet Count 253 K/mm3 (142-424); Red Blood Count 5.02 M/mm3 (4.20-5.40); Red Cell Distribution Width 14.6 % (11.5-17.5); White Blood Count 7.8 K/mm3 (4.8-10.8)
[2020-05-06 14:56] LABS: Chloride 103 mmol/L (98-107); Potassium 4.1 mmoL/L (3.5-5.1); Sodium 139 mmol/L (136-145)
[2020-05-06 14:59] LABS: Alanine Aminotransferase 96 U/L (12-78); Albumin Level 4.1 g/dl (3.5-5.0); Albumin/Globulin Ratio 1.3 (1.1-1.8); Alkaline Phosphatase 346 U/L (38-126); Anion Gap 16.1 mEq/L (5-15); Aspartate Amino Transferase 68 U/L (14-36); Bilirubin,Total 0.6 mg/dl (0.2-1.3); Blood Urea Nitrogen 14 mg/dl (7-17); Calcium 9.5 mg/dl (8.4-10.2); Carbon Dioxide 24 mmol/L (22.0-30.0); Estimated Glomerular Filt Rate 87 ml/min (>60); GFR (African American) 106 ML/MIN (>60); Globulin 3.1 g/dL (1.3-3.2); Glucose 105 mg/dl (74-100); Total Protein,Serum 7.2 g/dl (6.3-8.2)
== END ==
PROVIDERS: PCP Internal Medicine Adolescent Medicine; Visit Provider Nurse Practitioner Family
DX: R94.5 Abnormal results of liver function studies (principal); K75.81 Nonalcoholic steatohepatitis (NASH)
CPT/HCPCS: 36415; 80053; 85025

== ENCOUNTER → 2020-06-14 08:29 | Outpatient (CLI) | payer OTHER, SELFPAY ==
[2020-06-15 14:19] LABS: Cytomegalovirus (CMV) Ab, IgG >10.00 U/mL (0.00-0.59); Cytomegalovirus (CMV) Ab, IgM <30.0 AU/mL (0.0-29.9)
[2020-06-16 13:47] LABS: Epstein-Barr Virus Early Ag Ab <9.0 U/mL (0.0-8.9)
== END ==
PROVIDERS: Nurse Practitioner Family; Visit Provider Internal Medicine Gastroenterology
DX: R94.5 Abnormal results of liver function studies (principal); R74.8 Abnormal levels of other serum enzymes; K75.81 Nonalcoholic steatohepatitis (NASH)
CPT/HCPCS: 36415; 86644; 86645; 86663

== ENCOUNTER → 2020-07-21 09:07 | Outpatient (CLI) | payer OTHER, SELFPAY ==
[2020-07-21 10:37] LABS: Coronavirus 19 IgG Antibody Negative (Negative); Coronavirus 19 IgM Antibody Negative (Negative)
== END ==
PROVIDERS: Visit Provider Internal Medicine Gastroenterology
DX: Z01.818 Encounter for other preprocedural examination (principal)
CPT/HCPCS: 36415; 86328

== ENCOUNTER 2020-07-23 11:09 | Day surgery (SDC) | payer OTHER, SELFPAY ==
[2020-07-19 11:18] VITALS: BMI 28.5
[2020-07-23] VITALS (7 sets, daily range): BP systolic 122–145; BP diastolic 61–87; PULSE 78–91; RESP 16–18; TEMP 36.2; O2SAT 94–99
--- NOTE | 2020-07-23 13:02 | FL_ITS ---
PROCEDURE: FL ERCP CLINICAL INDICATION: abnormal liver tests COMPARISON: No exams were available for comparison FINDINGS: Fluoroscopy time: 1 minutes and 45 seconds Three images submitted from the C-arm post injection showing normal size common bile duct with no obvious common duct stones or other significant anomalies. There may be some mild tapering of the biliary radicles which could be seen with cirrhosis or fibrosis. IMPRESSION: 1. Unremarkable appearing common bile duct. 2. Mild attenuation of the intrahepatic biliary radicles which may be seen with hepatic fibrosis/cirrhosis Dictated by: Aries Vanessa MD 07/24/2020 15:36 Aries Vanessa MD in [place] 07/24/2020 15:36
--- NOTE | 2020-07-23 13:36 | HMH.PROC ---
[facility] Procedure Note Procedure Note:: ERCP procedure Report: Endoscopic retrograde cholangiopancreatography with biliary sphincterotomy Endoscopist: Teddy Forte II, MD Referring Physician: Rick Salcedo M.D. Date of Procedure: July 23, 2020 Equipment: Olympus 180 side viewing endoscope duodenoscope Sedation: MAC sedation Indication: Mrs. Peter is a 55-year-old female with elevated liver chemistries. Her AST 69, ALT 181 and alkaline phosphatase 445 were elevated. She has had prior cholecystectomy. Her CAT scan had shown fatty liver but no dilated biliary system. She did have an MRCP and liver biopsy. The biopsy did show marked steatosis with stage to fibrosis. There was focal changes suggestive of large bile duct obstruction. The MRCP on May 24, 2020 did show mild nodularity of the contour of the liver but no suspicious focal liver lesions. There were enlarged lymph nodes at the brian hepatis. There was no biliary dilation but there was mild ectasia of the central and common bile duct with smooth tapering to the ampulla without evidence of choledocholithiasis. The patient is here for ERCP to exclude biliary tract disease. The patient's EBV and CMV IgM antibodies were normal even though there was some elevation of the CMV IgG. Repeat liver chemistries from May 06, 2020 showed alkaline phosphatase 346 and ALT 96. The total bilirubin was 0.6. The patient did have a positive DYLAN and a negative mitochondrial antibody. Her viral hepatitis serologies were normal. The patient's alpha-1 antitrypsin phenotype MM and level was normal. Her smooth muscle antibody 10 was also normal. Her BRYSON level 47 was normal. Procedure: Prior to the procedure, a history and physical exam was performed, and patient's medications and allergies were reviewed. The risks, benefits and alternatives of the sedation and procedure were discussed with the patient. All questions were answered and informed consent was obtained. The patient was brought to the fluoroscopic radiology room. Patient identification and proposed procedure were verified by the physician and the nurse. The patient was placed in a swimmer's position between left lateral decubitus and prone position and the scope was passed under direct vision. Throughout the procedure, the patient's blood pressure, pulse, and oxygen saturations were monitored continuously. The ERCP was accomplished without difficulty. The patient tolerated the procedure well. Findings: The side-viewing duodenal scope was passed directly into the upper esophagus and advanced to the second portion of the duodenum. The esophagus, stomach and duodenum were grossly normal. The ampulla was well visualized. The common bile duct was selectively cannulated. The cholangiogram did show a 6 to 7 mm common bile duct with some attenuation of the intrahepatic biliary system but no stricturing or focal filling defects. The cystic duct stump was normal. There was tapering of the biliary system to the ampulla with very little drainage of bile or contrast suggestive of sphincter of Oddi dysfunction. A biliary sphincterotomy was performed with excellent extravasation of bile and contrast. The pancreatic duct was not cannulated intentionally. Subsequent to the procedure, and Indocin suppository was given. Impression: 1. 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 Mild attenuation of intrahepatic biliary system?rule out hepatic fibrosis Plan: I am not convinced that the patient's elevated alkaline phosphatase and findings on liver biopsy are due to large duct biliary disease. Given the fact that she initially had an elevated DYLAN level, I would consider a course of corticosteroids and ursodiol with repeat chemistries again in 2 and 4 weeks. I would recommend follow-up subsequently.
--- NOTE | 2020-07-23 13:53 | P.PN_ITS ---
[facility] Anesthesia Checklist - Patient Identification Patient Identification: Arm Band, Verbal (Name & ) - Structural Data Admitted From: Home Planned Operative Procedure/s: ERCP Consent for Planned Operative Procedure(s) Verified: Yes Verified Documents: Surgical Consent, History and Physical - NPO Status Verified Time NPO: 00:00 - Chart Verification Results Verified: None - Additional verifications Anesthesia Reactions: No Hx Blood Transfusions: No Blood Transfusion Reaction: No - Airway Assessment C-Spine Mobility Assessed: Yes TMJ Mobility Assessed: Yes Dentition: Edentulous (Dentures removed) - Neurological Assessment Level of Consciousness: Awake, Alert, Appropriate, Follows Commands Hx Seizures: No Numbness or tingling in extremities: No - Anesthesia Plan Anesthesia Risk discussed: Yes Anesthesia Plan: Verified ASA Class: III Anesthesia Type: MAC [facility] History I have reviewed the patient's past medical history: Yes Medical History: Reports:: Anxiety, Coronary Artery Disease, Hyperlipidemia, Hypertension Denies:: Cancer, Diabetes Mellitus Type 1, Diabetes Mellitus Type 2, Internal Pacemaker, MRSA, Seizures *Have you ever received a pneumonia vaccine?: No *Have you received a flu vaccine this season?: No Other Medical History: Reports: Other. Denies: Arthritis, Blood Transfusion Reaction, Hypothyroidism, Sinus Problems Anesthesia experience/problems:: None Other Surgeries: Yes: Cardiac Catheterization, Cholecystectomy, Colonoscopy, Hysterectomy-Total, Tubal Ligation, Other (PHLEBECTOMY). No: Pacemaker Amputation: No Fractures: No - *Social History Last grade of school completed: GED Smoking Status: Current every day smoker Tobacco Type: cigarettes # Packs/Day (cigarettes): 1 #Yrs smoked (if former smoker): 20 Alcohol Intake: never Alcohol Intake Frequency:: other Substance Use Type: denies use *Occupational Status:: employed Housing: house Household Members: spouse *Travel in the last 8 weeks: None - Psychiatric History Pschychiatric History:: Reports:: Anxiety Family Hx:: Coronary Artery Disease, Diabetes, Heart Attack
== END 2020-07-23 14:30 | disposition home or self-care (01) ==
LOC: OUTP 11:12
PROVIDERS: PCP Internal Medicine Adolescent Medicine; Visit Provider Internal Medicine Gastroenterology
PROC: (CPT 43262; principal; 2020-07-23 12:30)
DX: K83.9 Disease of biliary tract, unspecified; F41.9 Anxiety disorder, unspecified; I25.10 Atherosclerotic heart disease of native coronary artery without angina pectoris; E78.5 Hyperlipidemia, unspecified; I10 Essential (primary) hypertension; Z83.3 Family history of diabetes mellitus; Z80.51 Family history of malignant neoplasm of kidney; Z80.1 Family history of malignant neoplasm of trachea, bronchus and lung
CPT/HCPCS: 43262; 74330

== ENCOUNTER → 2020-08-06 08:13 | Outpatient (CLI) | payer OTHER, SELFPAY ==
[2020-08-06 14:05] LABS: Alanine Aminotransferase 24 U/L (12-78); Albumin Level 4.4 g/dl (3.5-5.0); Alkaline Phosphatase 276 U/L (38-126); Aspartate Amino Transferase 29 U/L (14-36); Bilirubin,Direct 0.2 mg/dl (0.0-0.4); Bilirubin,Indirect 0.4 mg/dL (0.0-0.9); Bilirubin,Total 0.6 mg/dl (0.2-1.3); Bilirubin,Unconjugated 0.4 mg/dL (0.0-1.1); Total Protein,Serum 7.7 g/dl (6.3-8.2)
== END ==
PROVIDERS: Visit Provider Internal Medicine Gastroenterology
DX: R94.5 Abnormal results of liver function studies (principal); R74.8 Abnormal levels of other serum enzymes
CPT/HCPCS: 36415; 80076

== ENCOUNTER → 2020-08-20 09:59 | Outpatient (CLI) | payer OTHER, SELFPAY ==
[2020-08-20 10:51] LABS: Alanine Aminotransferase 25 U/L (12-78); Albumin Level 4.4 g/dl (3.5-5.0); Alkaline Phosphatase 262 U/L (38-126); Aspartate Amino Transferase 32 U/L (14-36); Bilirubin,Direct 0.3 mg/dl (0.0-0.4); Bilirubin,Indirect 0.3 mg/dL (0.0-0.9); Bilirubin,Total 0.6 mg/dl (0.2-1.3); Bilirubin,Unconjugated 0.3 mg/dL (0.0-1.1); Total Protein,Serum 7.7 g/dl (6.3-8.2)
== END ==
PROVIDERS: Visit Provider Internal Medicine Gastroenterology
DX: R94.5 Abnormal results of liver function studies (principal); R74.8 Abnormal levels of other serum enzymes
CPT/HCPCS: 36415; 80076

== ENCOUNTER → 2020-09-03 08:04 | Outpatient (CLI) | payer OTHER, SELFPAY ==
[2020-09-03 14:06] LABS: Alanine Aminotransferase 19 U/L (12-78); Albumin Level 4.2 g/dl (3.5-5.0); Alkaline Phosphatase 234 U/L (38-126); Aspartate Amino Transferase 26 U/L (14-36); Bilirubin,Direct 0.4 mg/dl (0.0-0.4); Bilirubin,Indirect 0.3 mg/dL (0.0-0.9); Bilirubin,Total 0.7 mg/dl (0.2-1.3); Bilirubin,Unconjugated 0.3 mg/dL (0.0-1.1); Total Protein,Serum 7.4 g/dl (6.3-8.2)
== END ==
PROVIDERS: Visit Provider Internal Medicine Gastroenterology
DX: R94.5 Abnormal results of liver function studies (principal); R74.8 Abnormal levels of other serum enzymes
CPT/HCPCS: 36415; 80076

== ENCOUNTER → 2020-11-04 10:06 | Outpatient (CLI) | payer OTHER, SELFPAY ==
[2020-11-04 13:51] LABS: Chloride 106 mmol/L (98-107); Potassium 4.6 mmoL/L (3.5-5.1); Sodium 141 mmol/L (136-145)
[2020-11-04 13:53] LABS: Basophils # 0.1 K/mm3 (0-0.2); Basophils % 0.7 % (0.1-2.0); Eosinophils # 0.2 K/mm3 (0.0-0.4); Eosinophils % 2.3 % (0.1-12.0); Hematocrit 43.4 % (37.0-47.0); Hemoglobin 14.1 g/dL (12.2-16.2); Lymphocytes # 2.8 K/mm3 (0.7-4.5); Lymphocytes % 30.5 % (10-50); Mean Corpuscular HGB Conc 32.5 g/dL (31.8-35.4); Mean Corpuscular Hemoglobin 29.7 pg (27.0-31.2); Mean Corpuscular Volume 91.4 fl (81-99); Monocytes # 0.7 K/mm3 (0.1-1.0); Monocytes % 7.1 % (1.7-9.3); Neutrophils # 5.4 K/mm3 (1.8-7.8); Neutrophils % 59.5 % (37.0-80.0); Platelet Count 297 K/mm3 (142-424); Red Blood Count 4.75 M/mm3 (4.20-5.40); Red Cell Distribution Width 14.7 % (11.5-17.5); White Blood Count 9.1 K/mm3 (4.8-10.8)
[2020-11-04 13:54] LABS: Alanine Aminotransferase 21 U/L (12-78); Albumin Level 4.2 g/dl (3.5-5.0); Albumin/Globulin Ratio 1.4 (1.1-1.8); Alkaline Phosphatase 222 U/L (38-126); Anion Gap 14.6 mEq/L (5-15); Aspartate Amino Transferase 27 U/L (14-36); Bilirubin,Total 0.6 mg/dl (0.2-1.3); Blood Urea Nitrogen 17 mg/dl (7-17); Carbon Dioxide 25 mmol/L (22.0-30.0); Estimated Glomerular Filt Rate 104 ml/min (>60); GFR (African American) 126 ML/MIN (>60); Globulin 2.9 g/dL (1.3-3.2); Total Protein,Serum 7.1 g/dl (6.3-8.2)
[2020-11-04 13:55] LABS: Calcium 9.4 mg/dl (8.4-10.2); Glucose 76 mg/dl (74-100)
== END ==
PROVIDERS: Visit Provider Internal Medicine Gastroenterology
DX: R94.5 Abnormal results of liver function studies (principal); R74.8 Abnormal levels of other serum enzymes
CPT/HCPCS: 36415; 80053; 85025

== ENCOUNTER → 2020-12-08 07:20 | Outpatient (CLI) | payer OTHER, SELFPAY ==
[2020-12-08 13:49] LABS: Basophils # 0.1 K/mm3 (0-0.2); Basophils % 0.6 % (0.1-2.0); Eosinophils # 0.3 K/mm3 (0.0-0.4); Hematocrit 42.4 % (37.0-47.0); Hemoglobin 13.9 g/dL (12.2-16.2); Lymphocytes # 2.1 K/mm3 (0.7-4.5); Lymphocytes % 24.8 % (10-50); Mean Corpuscular HGB Conc 32.7 g/dL (31.8-35.4); Mean Corpuscular Hemoglobin 29.6 pg (27.0-31.2); Mean Corpuscular Volume 90.6 fl (81-99); Mean Platelet Volume 8.9 fl (7.4-10.4); Monocytes # 0.4 K/mm3 (0.1-1.0); Monocytes % 4.4 % (1.7-9.3); Neutrophils # 5.7 K/mm3 (1.8-7.8); Neutrophils % 67.2 % (37.0-80.0); Platelet Count 270 K/mm3 (142-424); Red Blood Count 4.68 M/mm3 (4.20-5.40); Red Cell Distribution Width 14.7 % (11.5-17.5); White Blood Count 8.5 K/mm3 (4.8-10.8)
[2020-12-08 13:57] LABS: Alanine Aminotransferase 21 U/L (12-78); Albumin Level 4.1 g/dl (3.5-5.0); Albumin/Globulin Ratio 1.5 (1.1-1.8); Alkaline Phosphatase 210 U/L (38-126); Anion Gap 10.5 mEq/L (5-15); Aspartate Amino Transferase 25 U/L (14-36); Bilirubin,Total 0.4 mg/dl (0.2-1.3); Blood Urea Nitrogen 17 mg/dl (7-17); Calcium 9.3 mg/dl (8.4-10.2); Carbon Dioxide 27 mmol/L (22.0-30.0); Chloride 106 mmol/L (98-107); Chol/HDL Ratio 5.8 (1-3.5); Cholesterol 219 mg/dl (140-200); Creatine Kinase 30 U/L (30-135); Estimated Glomerular Filt Rate 87 ml/min (>60); GFR (African American) 105 ML/MIN (>60); Globulin 2.8 g/dL (1.3-3.2); Glucose 119 mg/dl (74-100); HDL Cholesterol 38 mg/dl (40-60); Potassium 4.5 mmoL/L (3.5-5.1); Sodium 139 mmol/L (136-145); Total Protein,Serum 6.9 g/dl (6.3-8.2); Triglycerides 127 mg/dl (30-150); VLDL Cholesterol 25 mg/dL (0-40)
[2020-12-08 14:08] LABS: Direct LDL Cholesterol 133.89 mg/dL (100-129)
[2020-12-08 14:15] LABS: 25-OH Vitamin D, Total 46.6 ng/mL (30-100)
[2020-12-08 14:17] LABS: Free Thyroxine Index 2.9 ug/dL (5.93-13.13); T4 (Thyroxine) 10.1 ug/dl (5.53-11.0); Triiodothryronine (T3) Uptake 29 % (23.5-40.5)
[2020-12-08 14:30] LABS: Thyroid Stimulating Hormone 2.12 uIU/mL (0.465-4.68)
[2020-12-08 14:48] LABS: Vitamin B12 403 pg/mL (239-931)
== END ==
PROVIDERS: Visit Provider Internal Medicine Adolescent Medicine
DX: M79.10 Myalgia, unspecified site (principal); R73.09 Other abnormal glucose; E55.9 Vitamin D deficiency, unspecified; R53.81 Other malaise; R53.83 Other fatigue
CPT/HCPCS: 36415; 80053; 80061; 82085; 82306; 82550; 82607; 83036; 84436; 84443; 84479; 85025

== ENCOUNTER → 2020-12-13 08:25 | Outpatient (CLI) | payer OTHER, SELFPAY ==
--- NOTE | 2020-12-13 08:29 | MM_ITS ---
PROCEDURE INFORMATION: Exam: MG Screening 3D Mammography Exam date and time: 12/13/2020 8:29 AM Age: 55 years old Clinical indication: Encounter for screening mammogram for malignant neoplasm of breast TECHNIQUE: Imaging protocol: Screening tomosynthesis and 2D mammography including computer-aided detection (CAD) when performed. COMPARISON: 1. MG MAMM 3D OTTO SCREENING 09/19/2019 2:16 PM 2. MG DMDBAV DIG MAMM-DX MARIANNA W ADD VIEWS 01/28/2015 8:21 AM 3. BL US BREAST-LT COMPLETE W/AXILLA 01/28/2015 9:09 AM FINDINGS: MAMMOGRAPHY: Breast composition: There are scattered areas of fibroglandular density. Mass: No new suspicious masses. Architectural distortion: No suspicious distortion. Stable postsurgical changes in the posterior outer left breast. Calcifications: No suspicious calcifications. Asymmetric density: None. Skin thickening: None. Axillary adenopathy: None. IMPRESSION: No mammographic evidence of malignancy. Annual screening is recommended unless otherwise clinically indicated. ASSESSMENT: BI-RADS Category 2: Benign
== END ==
PROVIDERS: PCP Internal Medicine Adolescent Medicine; Visit Provider Internal Medicine Adolescent Medicine
DX: Z12.31 Encounter for screening mammogram for malignant neoplasm of breast (principal)
CPT/HCPCS: 77063; 77067

== ENCOUNTER → 2020-12-20 14:59 | Outpatient (CLI) | payer OTHER, SELFPAY | PROVIDERS: PCP Internal Medicine Adolescent Medicine; Visit Provider Internal Medicine Adolescent Medicine | DX: G47.33 Obstructive sleep apnea (adult) (pediatric) (principal); R51.9 Headache, unspecified | CPT/HCPCS: 95806 ==

== ENCOUNTER → 2020-12-29 10:05 | Outpatient (CLI) | payer OTHER, SELFPAY ==
[2020-12-29 14:35] LABS: Chloride 106 mmol/L (98-107); Potassium 4.1 mmoL/L (3.5-5.1); Sodium 139 mmol/L (136-145)
[2020-12-29 14:37] LABS: Blood Urea Nitrogen 17 mg/dl (7-17); Estimated Glomerular Filt Rate 104 ml/min (>60); GFR (African American) 126 ML/MIN (>60)
[2020-12-29 14:38] LABS: Alanine Aminotransferase 19 U/L (12-78); Albumin Level 4.2 g/dl (3.5-5.0); Albumin/Globulin Ratio 1.4 (1.1-1.8); Alkaline Phosphatase 213 U/L (38-126); Anion Gap 12.1 mEq/L (5-15); Aspartate Amino Transferase 24 U/L (14-36); Bilirubin,Total 0.6 mg/dl (0.2-1.3); Calcium 9.4 mg/dl (8.4-10.2); Carbon Dioxide 25 mmol/L (22.0-30.0); Glucose 91 mg/dl (74-100); Total Protein,Serum 7.2 g/dl (6.3-8.2)
[2020-12-29 14:42] LABS: Basophils # 0.1 K/mm3 (0-0.2); Basophils % 0.8 % (0.1-2.0); Eosinophils # 0.1 K/mm3 (0.0-0.4); Eosinophils % 1.5 % (0.1-12.0); Hematocrit 42.7 % (37.0-47.0); Hemoglobin 13.8 g/dL (12.2-16.2); Lymphocytes # 2.6 K/mm3 (0.7-4.5); Lymphocytes % 26.8 % (10-50); Mean Corpuscular HGB Conc 32.3 g/dL (31.8-35.4); Mean Corpuscular Hemoglobin 29.4 pg (27.0-31.2); Mean Corpuscular Volume 90.9 fl (81-99); Mean Platelet Volume 8.9 fl (7.4-10.4); Monocytes # 0.6 K/mm3 (0.1-1.0); Monocytes % 6.3 % (1.7-9.3); Neutrophils # 6.1 K/mm3 (1.8-7.8); Neutrophils % 64.5 % (37.0-80.0); Platelet Count 321 K/mm3 (142-424); Red Cell Distribution Width 14.6 % (11.5-17.5); White Blood Count 9.5 K/mm3 (4.8-10.8)
== END ==
PROVIDERS: Visit Provider Internal Medicine Gastroenterology
DX: R94.5 Abnormal results of liver function studies (principal); R74.8 Abnormal levels of other serum enzymes; K75.4 Autoimmune hepatitis; K75.81 Nonalcoholic steatohepatitis (NASH)
CPT/HCPCS: 36415; 80053; 85025

== ENCOUNTER → 2021-03-28 07:43 | Outpatient (CLI) | payer OTHER, SELFPAY ==
[2021-03-28 14:04] LABS: Alanine Aminotransferase 30 U/L (12-78); Albumin Level 3.9 g/dl (3.5-5.0); Alkaline Phosphatase 198 U/L (38-126); Aspartate Amino Transferase 32 U/L (14-36); Bilirubin,Direct 0.5 mg/dl (0.0-0.4); Bilirubin,Total 0.5 mg/dl (0.2-1.3); Total Protein,Serum 6.9 g/dl (6.3-8.2)
== END ==
PROVIDERS: Visit Provider Internal Medicine Gastroenterology
DX: R94.5 Abnormal results of liver function studies (principal); R74.8 Abnormal levels of other serum enzymes; K75.4 Autoimmune hepatitis; K75.81 Nonalcoholic steatohepatitis (NASH); K75.3 Granulomatous hepatitis, not elsewhere classified; K74.01 Hepatic fibrosis, early fibrosis; R53.83 Other fatigue
CPT/HCPCS: 36415; 80076

== ENCOUNTER → 2021-05-23 07:43 | Outpatient (CLI) | payer OTHER, SELFPAY ==
[2021-05-23 13:39] LABS: Basophils # 0.1 K/mm3 (0-0.2); Basophils % 0.6 % (0.1-2.0); Eosinophils # 0.1 K/mm3 (0.0-0.4); Eosinophils % 1.2 % (0.1-12.0); Hematocrit 45.3 % (37.0-47.0); Hemoglobin 14.7 g/dL (12.2-16.2); Lymphocytes # 1.8 K/mm3 (0.7-4.5); Lymphocytes % 20.1 % (10-50); Mean Corpuscular HGB Conc 32.5 g/dL (31.8-35.4); Mean Corpuscular Hemoglobin 30.6 pg (27.0-31.2); Mean Corpuscular Volume 94.3 fl (81-99); Mean Platelet Volume 9.2 fl (7.4-10.4); Monocytes # 0.5 K/mm3 (0.1-1.0); Monocytes % 5.4 % (1.7-9.3); Neutrophils # 6.4 K/mm3 (1.8-7.8); Neutrophils % 72.7 % (37.0-80.0); Platelet Count 304 K/mm3 (142-424); Red Blood Count 4.81 M/mm3 (4.20-5.40); Red Cell Distribution Width 14.7 % (11.5-17.5); White Blood Count 8.8 K/mm3 (4.8-10.8)
[2021-05-23 13:55] LABS: Chloride 102 mmol/L (98-107)
[2021-05-23 13:56] LABS: Potassium 4.3 mmoL/L (3.5-5.1); Sodium 140 mmol/L (136-145)
[2021-05-23 13:58] LABS: Alanine Aminotransferase 20 U/L (12-78); Aspartate Amino Transferase 28 U/L (14-36); Blood Urea Nitrogen 12 mg/dl (7-17); Estimated Glomerular Filt Rate 128 ml/min (>60); GFR (African American) 155 ML/MIN (>60)
[2021-05-23 13:59] LABS: Albumin Level 3.9 g/dl (3.5-5.0); Albumin/Globulin Ratio 1.3 (1.1-1.8); Alkaline Phosphatase 192 U/L (38-126); Anion Gap 18.3 mEq/L (5-15); Bilirubin,Total 0.7 mg/dl (0.2-1.3); Carbon Dioxide 24 mmol/L (22.0-30.0); Globulin 3.1 g/dL (1.3-3.2); Glucose 149 mg/dl (74-100)
== END ==
PROVIDERS: Visit Provider Internal Medicine Gastroenterology
DX: K75.4 Autoimmune hepatitis (principal); K75.3 Granulomatous hepatitis, not elsewhere classified; K75.81 Nonalcoholic steatohepatitis (NASH); K74.01 Hepatic fibrosis, early fibrosis; R94.5 Abnormal results of liver function studies; R74.8 Abnormal levels of other serum enzymes; R53.83 Other fatigue
CPT/HCPCS: 36415; 80053; 85025

== ENCOUNTER → 2021-06-22 08:03 | Outpatient (CLI) | payer OTHER, SELFPAY ==
[2021-06-22 14:25] LABS: Basophils # 0.1 K/mm3 (0-0.2); Basophils % 0.8 % (0.1-2.0); Eosinophils # 0.2 K/mm3 (0.0-0.4); Eosinophils % 2.1 % (0.1-12.0); Hematocrit 44.4 % (37.0-47.0); Hemoglobin 14.4 g/dL (12.2-16.2); Lymphocytes # 1.8 K/mm3 (0.7-4.5); Lymphocytes % 25.8 % (10-50); Mean Corpuscular HGB Conc 32.4 g/dL (31.8-35.4); Mean Corpuscular Hemoglobin 30.4 pg (27.0-31.2); Mean Corpuscular Volume 93.8 fl (81-99); Mean Platelet Volume 8.3 fl (7.4-10.4); Monocytes # 0.3 K/mm3 (0.1-1.0); Monocytes % 4.5 % (1.7-9.3); Neutrophils # 4.7 K/mm3 (1.8-7.8); Neutrophils % 66.8 % (37.0-80.0); Platelet Count 316 K/mm3 (142-424); Red Blood Count 4.74 M/mm3 (4.20-5.40); Red Cell Distribution Width 14.2 % (11.5-17.5)
[2021-06-22 14:56] LABS: Chloride 102 mmol/L (98-107); Potassium 4.5 mmoL/L (3.5-5.1); Sodium 142 mmol/L (136-145)
[2021-06-22 14:58] LABS: Blood Urea Nitrogen 11 mg/dl (7-17); Estimated Glomerular Filt Rate 128 ml/min (>60); GFR (African American) 155 ML/MIN (>60)
[2021-06-22 14:59] LABS: Alanine Aminotransferase 18 U/L (12-78); Albumin Level 3.9 g/dl (3.5-5.0); Albumin/Globulin Ratio 1.2 (1.1-1.8); Alkaline Phosphatase 176 U/L (38-126); Anion Gap 14.5 mEq/L (5-15); Aspartate Amino Transferase 23 U/L (14-36); Bilirubin,Total 0.3 mg/dl (0.2-1.3); Calcium 9.1 mg/dl (8.4-10.2); Carbon Dioxide 30 mmol/L (22.0-30.0); Globulin 3.2 g/dL (1.3-3.2); Glucose 64 mg/dl (74-100); Total Protein,Serum 7.1 g/dl (6.3-8.2)
== END ==
PROVIDERS: Visit Provider Internal Medicine Gastroenterology
DX: R94.5 Abnormal results of liver function studies (principal); R74.8 Abnormal levels of other serum enzymes
CPT/HCPCS: 36415; 80053; 85025

== ENCOUNTER → 2021-11-10 16:21 | Outpatient (CLI) | payer OTHER, SELFPAY ==
[2021-11-10 16:58] LABS: Microscopic, Urine URINE MICROSCOPIC (MICROSCOPIC)
--- NOTE | 2021-11-10 17:20 | XR_ITS ---
PROCEDURE INFORMATION: Exam: XR Chest Exam date and time: 11/10/2021 5:22 PM Age: 56 years old Clinical indication: Fever and other: Fever TECHNIQUE: Imaging protocol: XR of the chest. Views: 2 views. Total images: 2 COMPARISON: CT CHEST W CON 11/03/2019 9:48 AM FINDINGS: Lungs: Granulomatous calcification in the right lung base and other granulomatous calcifications in the spleen again noted. Pulmonary vasculature grossly normal. No gross pulmonary infiltrates or edema pattern. Pleural spaces: No pleural effusion. No pneumothorax. Heart/Mediastinum: Heart size normal. No tracheal/mediastinal shift. Bones/joints: No acute osseous abnormalities are identified. IMPRESSION: No acute thoracic process.
[2021-11-10 17:28] LABS: Basophils # 0.1 K/mm3 (0-0.2); Basophils % 1.1 % (0.1-2.0); Eosinophils # 0.1 K/mm3 (0.0-0.4); Eosinophils % 1.3 % (0.1-12.0); Hematocrit 43.6 % (37.0-47.0); Lymphocytes # 2.5 K/mm3 (0.7-4.5); Lymphocytes % 23.9 % (10-50); Mean Corpuscular HGB Conc 32.1 g/dL (31.8-35.4); Mean Corpuscular Hemoglobin 29.8 pg (27.0-31.2); Mean Corpuscular Volume 92.9 fl (81-99); Mean Platelet Volume 8.5 fl (7.4-10.4); Monocytes # 0.8 K/mm3 (0.1-1.0); Monocytes % 7.9 % (1.7-9.3); Neutrophils # 6.9 K/mm3 (1.8-7.8); Neutrophils % 65.8 % (37.0-80.0); Platelet Count 310 K/mm3 (142-424); Red Blood Count 4.69 M/mm3 (4.20-5.40); White Blood Count 10.4 K/mm3 (4.8-10.8)
[2021-11-10 18:39] LABS: Appearance,Urine CLEAR (Clear); Bilirubin,Urine Negative (Negative); Blood, Urine 1+ (Negative); Color,Urine YELLOW (Yellow); Glucose,Urine (UA) Negative (Negative); Ketones,Urine Negative (Negative); Leukocyte Esterase,Urine 1+ (Negative); Nitrate,Urine Negative (Negative); PH,Urine 5.5 (5.0-8.5); Protein,Urine Negative (Negative); Urobilinogen,Urine 0.2 EU/dl (0.2)
[2021-11-10 19:30] LABS: Bacteria,Urine 1+ /lpf; RBC,Urine 20-50 #/hpf (0-3)
[2021-11-10 19:37] LABS: Alanine Aminotransferase 26 U/L (12-78); Albumin Level 4.3 g/dl (3.5-5.0); Albumin/Globulin Ratio 1.4 (1.1-1.8); Alkaline Phosphatase 186 U/L (38-126); Aspartate Amino Transferase 28 U/L (14-36); Bilirubin,Total 0.8 mg/dl (0.2-1.3); Blood Urea Nitrogen 16 mg/dl (7-17); Calcium 9.2 mg/dl (8.4-10.2); Carbon Dioxide 29 mmol/L (22.0-30.0); Chloride 100 mmol/L (98-107); Estimated Glomerular Filt Rate 103 ml/min (>60); GFR (African American) 125 ML/MIN (>60); Globulin 3.1 g/dL (1.3-3.2); Glucose 100 mg/dl (74-100); Sodium 137 mmol/L (136-145); Total Protein,Serum 7.4 g/dl (6.3-8.2)
[2021-11-12 08:15] LABS: HIV Screen 4th Generation wRfx Non Reactive (Non Reactive); Hep A Ab, IgM Negative (Negative); Hepatitis B Core Antibody IgM Negative (Negative); Hepatitis B Surface Antigen Negative (Negative); Hepatitis C Antibody <0.1 s/co ratio (0.0-0.9)
[2021-11-12 20:10] LABS: QuantiFERON-TB Gold Plus Negative (Negative)
== END ==
PROVIDERS: PCP Internal Medicine Adolescent Medicine; Visit Provider Internal Medicine Adolescent Medicine
DX: R50.9 Fever, unspecified (principal); Z86.19 Personal history of other infectious and parasitic diseases
CPT/HCPCS: 36415; 71046; 80053; 80074; 81001; 85025; 86480; 86703; 87040; 87086; 87088; 87186; G0432

== ENCOUNTER → 2021-12-13 07:46 | Outpatient (CLI) | payer OTHER, SELFPAY ==
[2021-12-13 13:53] LABS: Basophils % 0.5 % (0.1-2.0); Eosinophils # 0.1 K/mm3 (0.0-0.4); Eosinophils % 1.2 % (0.1-12.0); Hematocrit 42.5 % (37.0-47.0); Hemoglobin 13.7 g/dL (12.2-16.2); Lymphocytes # 1.7 K/mm3 (0.7-4.5); Lymphocytes % 21.4 % (10-50); Mean Corpuscular HGB Conc 32.3 g/dL (31.8-35.4); Mean Corpuscular Hemoglobin 29.3 pg (27.0-31.2); Mean Corpuscular Volume 90.8 fl (81-99); Mean Platelet Volume 8.4 fl (7.4-10.4); Monocytes # 0.5 K/mm3 (0.1-1.0); Monocytes % 6.3 % (1.7-9.3); Neutrophils # 5.5 K/mm3 (1.8-7.8); Neutrophils % 70.7 % (37.0-80.0); Platelet Count 302 K/mm3 (142-424); Red Blood Count 4.68 M/mm3 (4.20-5.40); Red Cell Distribution Width 14.5 % (11.5-17.5); White Blood Count 7.8 K/mm3 (4.8-10.8)
[2021-12-13 14:03] LABS: Chloride 104 mmol/L (98-107); Potassium 4.4 mmoL/L (3.5-5.1); Sodium 139 mmol/L (136-145)
[2021-12-13 14:05] LABS: Alanine Aminotransferase 20 U/L (12-78); Aspartate Amino Transferase 26 U/L (14-36); Blood Urea Nitrogen 12 mg/dl (7-17); Estimated Glomerular Filt Rate 87 ml/min (>60); GFR (African American) 105 ML/MIN (>60)
[2021-12-13 14:06] LABS: Albumin Level 3.8 g/dl (3.5-5.0); Albumin/Globulin Ratio 1.4 (1.1-1.8); Alkaline Phosphatase 162 U/L (38-126); Anion Gap 12.4 mEq/L (5-15); Bilirubin,Total 0.8 mg/dl (0.2-1.3); Calcium 9.2 mg/dl (8.4-10.2); Carbon Dioxide 27 mmol/L (22.0-30.0); Globulin 2.8 g/dL (1.3-3.2); Glucose 89 mg/dl (74-100); Total Protein,Serum 6.6 g/dl (6.3-8.2)
== END ==
PROVIDERS: Visit Provider Nurse Practitioner Family
DX: K75.4 Autoimmune hepatitis (principal); K75.81 Nonalcoholic steatohepatitis (NASH); K75.3 Granulomatous hepatitis, not elsewhere classified; R94.5 Abnormal results of liver function studies
CPT/HCPCS: 36415; 80053; 85025

== ENCOUNTER → 2022-01-06 07:27 | Outpatient (CLI) | payer OTHER, SELFPAY ==
[2022-01-06 07:33] LABS: Microscopic, Urine URINE MICROSCOPIC (MICROSCOPIC)
[2022-01-06 08:01] LABS: Basophils # 0.1 K/mm3 (0-0.2); Basophils % 1.3 % (0.1-2.0); Eosinophils # 0.1 K/mm3 (0.0-0.4); Eosinophils % 0.9 % (0.1-12.0); Hematocrit 41.2 % (37.0-47.0); Hemoglobin 13.5 g/dL (12.2-16.2); Lymphocytes # 1.5 K/mm3 (0.7-4.5); Lymphocytes % 21.8 % (10-50); Mean Corpuscular HGB Conc 32.8 g/dL (31.8-35.4); Mean Corpuscular Hemoglobin 30.3 pg (27.0-31.2); Mean Corpuscular Volume 92.4 fl (81-99); Mean Platelet Volume 8.7 fl (7.4-10.4); Monocytes # 0.4 K/mm3 (0.1-1.0); Monocytes % 6.3 % (1.7-9.3); Neutrophils # 4.9 K/mm3 (1.8-7.8); Neutrophils % 69.7 % (37.0-80.0); Platelet Count 332 K/mm3 (142-424); Red Blood Count 4.46 M/mm3 (4.20-5.40); Red Cell Distribution Width 15.4 % (11.5-17.5)
[2022-01-06 08:03] LABS: Appearance,Urine CLEAR (Clear); Bilirubin,Urine Negative (Negative); Blood, Urine TRACE-I (Negative); Color,Urine YELLOW (Yellow); Glucose,Urine (UA) Negative (Negative); Ketones,Urine Negative (Negative); Leukocyte Esterase,Urine TRACE (Negative); Nitrate,Urine Negative (Negative); PH,Urine 5.5 (5.0-8.5); Protein,Urine Negative (Negative); Urobilinogen,Urine 0.2 EU/dl (0.2)
[2022-01-06 08:18] LABS: Alanine Aminotransferase 29 U/L (12-78); Albumin Level 3.9 g/dl (3.5-5.0); Albumin/Globulin Ratio 1.4 (1.1-1.8); Alkaline Phosphatase 198 U/L (38-126); Anion Gap 11.9 mEq/L (5-15); Aspartate Amino Transferase 28 U/L (14-36); Bilirubin,Total 0.2 mg/dl (0.2-1.3); Blood Urea Nitrogen 10 mg/dl (7-17); Calcium 9.1 mg/dl (8.4-10.2); Carbon Dioxide 30 mmol/L (22.0-30.0); Chloride 103 mmol/L (98-107); Estimated Glomerular Filt Rate 103 ml/min (>60); GFR (African American) 125 ML/MIN (>60); Globulin 2.8 g/dL (1.3-3.2); Glucose 151 mg/dl (74-100); Potassium 3.9 mmoL/L (3.5-5.1); Sodium 141 mmol/L (136-145); Total Protein,Serum 6.7 g/dl (6.3-8.2)
[2022-01-06 08:24] LABS: Bacteria,Urine Trace /lpf; Squamous Epithelial Cell,Urine Occasional #/hpf (0-5)
== END ==
PROVIDERS: Visit Provider Nurse Practitioner Family
DX: R50.9 Fever, unspecified (principal); K75.4 Autoimmune hepatitis; R53.83 Other fatigue
CPT/HCPCS: 36415; 80053; 81001; 85025

== ENCOUNTER → 2022-01-24 08:51 | Outpatient (CLI) | payer OTHER, SELFPAY ==
--- NOTE | 2022-01-24 09:29 | US_ITS ---
FINAL REPORT CLINICAL HISTORY: ABN LIVER FUNCTION,AUTIMMUNE HEPATITIS,NON ALCHOLIC STEAOHEP FINDINGS: Sonographic images of the right upper quadrant were obtained. The pancreas is partially obscured.The liver has an unremarkable appearance. The gallbladder surgically absent. There is no evidence of biliary ductal dilatation.The common duct measures 4mm. Limited images of the right kidney are unremarkable. IMPRESSION: Cholecystectomy. Otherwise unremarkable right upper quadrant ultrasound. Reviewed, Interpreted and Dictated by Carlos Alberto Medrano III, MD Transcribed by Jonelle Stapleton Authenticated and . [facility]
== END ==
PROVIDERS: PCP Internal Medicine Adolescent Medicine; Visit Provider Nurse Practitioner Family
DX: R94.5 Abnormal results of liver function studies (principal); K75.4 Autoimmune hepatitis; K75.3 Granulomatous hepatitis, not elsewhere classified; K75.81 Nonalcoholic steatohepatitis (NASH)
CPT/HCPCS: 76705

== ENCOUNTER → 2022-02-21 07:06 | Outpatient (CLI) | payer OTHER, SELFPAY ==
[2022-02-21 14:21] LABS: Basophils % 0.4 % (0.1-2.0); Eosinophils # 0.1 K/mm3 (0.0-0.4); Eosinophils % 1.7 % (0.1-12.0); Hematocrit 40.4 % (37.0-47.0); Hemoglobin 13.6 g/dL (12.2-16.2); Lymphocytes # 1.7 K/mm3 (0.7-4.5); Lymphocytes % 20.2 % (10-50); Mean Corpuscular HGB Conc 33.8 g/dL (31.8-35.4); Mean Corpuscular Hemoglobin 29.6 pg (27.0-31.2); Mean Corpuscular Volume 87.6 fl (81-99); Mean Platelet Volume 8.6 fl (7.4-10.4); Monocytes # 0.5 K/mm3 (0.1-1.0); Monocytes % 6.1 % (1.7-9.3); Neutrophils # 5.8 K/mm3 (1.8-7.8); Neutrophils % 71.5 % (37.0-80.0); Platelet Count 321 K/mm3 (142-424); Red Blood Count 4.61 M/mm3 (4.20-5.40); Red Cell Distribution Width 14.9 % (11.5-17.5); White Blood Count 8.2 K/mm3 (4.8-10.8)
[2022-02-21 14:30] LABS: Alanine Aminotransferase 24 U/L (12-78); Albumin Level 3.8 g/dl (3.5-5.0); Albumin/Globulin Ratio 1.3 (1.1-1.8); Alkaline Phosphatase 190 U/L (38-126); Anion Gap 13.2 mEq/L (5-15); Aspartate Amino Transferase 28 U/L (14-36); Bilirubin,Total 0.3 mg/dl (0.2-1.3); Blood Urea Nitrogen 12 mg/dl (7-17); Calcium 9.1 mg/dl (8.4-10.2); Carbon Dioxide 27 mmol/L (22.0-30.0); Chloride 102 mmol/L (98-107); Estimated Glomerular Filt Rate 103 ml/min (>60); GFR (African American) 125 ML/MIN (>60); Globulin 2.9 g/dL (1.3-3.2); Glucose 175 mg/dl (74-100); Potassium 4.2 mmoL/L (3.5-5.1); Sodium 138 mmol/L (136-145); Total Protein,Serum 6.7 g/dl (6.3-8.2)
== END ==
PROVIDERS: Visit Provider Nurse Practitioner Family
DX: R94.5 Abnormal results of liver function studies (principal); K75.4 Autoimmune hepatitis; K75.3 Granulomatous hepatitis, not elsewhere classified; K75.81 Nonalcoholic steatohepatitis (NASH)
CPT/HCPCS: 36415; 80053; 85025

== ENCOUNTER → 2022-05-22 10:39 | Outpatient (CLI) | payer OTHER, SELFPAY ==
--- NOTE | 2022-05-22 10:43 | XR_ITS ---
FINAL REPORT CLINICAL HISTORY: BRONCHOPNEUMONIA COMPARISON: 11/10/2021 FINDINGS: Two views of the chest were obtained. The heart size and pulmonary vascularity are within normal limits. The mediastinum is normal. There are left lung opacities consistent with pneumonia. There is no pneumothorax. The bony thorax is intact. IMPRESSION: Left lung opacities consistent with pneumonia. Reviewed, Interpreted and Dictated by Carlos Alberto Medrano III, MD Transcribed by Pascale Acuña Authenticated and . [facility]
== END ==
PROVIDERS: PCP Internal Medicine Adolescent Medicine; Visit Provider Internal Medicine Adolescent Medicine
DX: J18.0 Bronchopneumonia, unspecified organism (principal)
CPT/HCPCS: 71046

== ENCOUNTER → 2022-05-26 12:45 | Outpatient (CLI) | payer OTHER, SELFPAY ==
--- NOTE | 2022-05-26 12:54 | XR_ITS ---
FINAL REPORT TECHNIQUE: Chest PA & Lateral CLINICAL HISTORY: PNEUMONIA COMPARISON: May 22, 2022 FINDINGS: 2 views of the chest were performed. The heart size is normal. The mediastinum is within normal limits. There are persistent left lung opacities consistent with pneumonia. There are no pleural effusions. There is no pneumothorax. The bony thorax appears intact. IMPRESSION: Persistent left lung pneumonia. Reviewed, Interpreted and Dictated by Carlos Alberto Medrano III, MD Transcribed by Stevie Fernandez Authenticated and [facility]
== END ==
PROVIDERS: PCP Nurse Practitioner Family; Visit Provider Nurse Practitioner Family
DX: J18.9 Pneumonia, unspecified organism (principal)
CPT/HCPCS: 71046

== ENCOUNTER → 2022-06-15 17:09 | Outpatient (CLI) | payer OTHER, SELFPAY ==
--- NOTE | 2022-06-15 17:15 | XR_ITS ---
PROCEDURE INFORMATION: Exam: XR Chest Exam date and time: 06/15/2022 5:19 PM Age: 56 years old Clinical indication: Pain; Radiating; Additional info: Rib pain TECHNIQUE: Imaging protocol: Radiologic exam of the chest. Views: 2 views. COMPARISON: CR XR CHEST 2V 05/26/2022 1:17 PM FINDINGS: Lungs: Unremarkable. No consolidation. Pleural spaces: Unremarkable. No pleural effusion. No pneumothorax. Heart/Mediastinum: Unremarkable. No cardiomegaly. Bones/joints: Unremarkable. IMPRESSION: No acute findings.
== END ==
PROVIDERS: PCP Internal Medicine Adolescent Medicine; Visit Provider Internal Medicine Adolescent Medicine
DX: R07.81 Pleurodynia (principal)
CPT/HCPCS: 71046

== ENCOUNTER → 2022-07-10 10:21 | Outpatient (CLI) | payer OTHER, SELFPAY ==
[2022-07-10 10:50] LABS: Basophils # 0.1 K/mm3 (0-0.2); Eosinophils # 0.1 K/mm3 (0.0-0.4); Eosinophils % 0.9 % (0.1-12.0); Hematocrit 43.7 % (37.0-47.0); Hemoglobin 13.8 g/dL (12.2-16.2); Lymphocytes # 1.9 K/mm3 (0.7-4.5); Lymphocytes % 24.9 % (10-50); Mean Corpuscular HGB Conc 31.6 g/dL (31.8-35.4); Mean Corpuscular Hemoglobin 28.9 pg (27.0-31.2); Mean Corpuscular Volume 91.5 fl (81-99); Mean Platelet Volume 8.3 fl (7.4-10.4); Monocytes # 0.6 K/mm3 (0.1-1.0); Monocytes % 7.4 % (1.7-9.3); Neutrophils # 5.1 K/mm3 (1.8-7.8); Neutrophils % 65.8 % (37.0-80.0); Platelet Count 250 K/mm3 (142-424); Red Blood Count 4.78 M/mm3 (4.20-5.40); Red Cell Distribution Width 15.6 % (11.5-17.5); White Blood Count 7.7 K/mm3 (4.8-10.8)
[2022-07-10 11:36] LABS: Chloride 96 mmol/L (98-107)
[2022-07-10 11:37] LABS: Potassium 4.2 mmoL/L (3.5-5.1); Sodium 138 mmol/L (136-145)
[2022-07-10 11:39] LABS: Alanine Aminotransferase 19 U/L (12-78); Alkaline Phosphatase 163 U/L (38-126); Anion Gap 13.2 mEq/L (5-15); Aspartate Amino Transferase 24 U/L (14-36); Bilirubin,Total 0.6 mg/dl (0.2-1.3); Blood Urea Nitrogen 9 mg/dl (7-17); Carbon Dioxide 33 mmol/L (22.0-30.0); Estimated Glomerular Filt Rate 103 ml/min (>60); GFR (African American) 125 ML/MIN (>60)
[2022-07-10 11:40] LABS: Albumin/Globulin Ratio 1.5 (1.1-1.8); Calcium 9.1 mg/dl (8.4-10.2); Globulin 2.7 g/dL (1.3-3.2); Glucose 102 mg/dl (74-100); Total Protein,Serum 6.7 g/dl (6.3-8.2)
== END ==
PROVIDERS: PCP Internal Medicine Adolescent Medicine; Visit Provider Nurse Practitioner Family
DX: K75.4 Autoimmune hepatitis (principal); K75.3 Granulomatous hepatitis, not elsewhere classified; K75.81 Nonalcoholic steatohepatitis (NASH)
CPT/HCPCS: 36415; 80053; 85025

== ENCOUNTER → 2022-08-04 12:55 | Outpatient (CLI) | payer OTHER, SELFPAY ==
--- NOTE | 2022-08-04 14:43 | PC.NURSE ---
Attempted PFT, it cannot be completed. Pt is unable to exhale longer than 3 seconds which is insufficient to obtain an accurate PFT reading. Attempted to call Dr. Leyva office to inform him, office is closed for the day.
== END ==
PROVIDERS: PCP Internal Medicine Adolescent Medicine; Visit Provider Internal Medicine Adolescent Medicine
DX: R94.5 Abnormal results of liver function studies (principal); R06.02 Shortness of breath

== ENCOUNTER → 2022-08-18 10:06 | Outpatient (CLI) | payer OTHER, SELFPAY ==
--- NOTE | 2022-08-18 10:10 | CT_ITS ---
FINAL REPORT TECHNIQUE: Axial images through the chest were performed by computed tomography before and after the administration of IV contrast. This study was performed with techniques to keep radiation doses as low as reasonably achievable, (ALARA). Individualized dose reduction techniques using automated exposure control or adjustment of mA and/or kV according to the patient's size were employed. CLINICAL HISTORY: RT RIB PAIN,SUBACUTE COUGH,DYSPNEA ON EXERTION, pneumonia COMPARISON: November 03, 2019 FINDINGS: There is no axillary adenopathy. There are multiple stable borderline size mediastinal lymph nodes, nonspecific and favor reactive. There is no hilar or mediastinal adenopathy. The heart size is normal. There is no pericardial or pleural effusion. Limited images of the upper abdomen demonstrate postoperative changes from cholecystectomy. No suspicious infiltrate or nodule identified. There is a calcified granuloma in the right middle lobe. There is mild atelectasis or scarring in the lung bases. On the bone window images, there are subacute appearing right 6th, 7th and 8th lateral rib fractures. IMPRESSION: Mild atelectasis or scarring in the lung bases. Subacute appearing right 6, 7th and 8th lateral rib fractures. Reviewed, Interpreted and Dictated by Carlos Alberto Medrano III, MD Transcribed by Jonelle Stapleton Authenticated and . [facility]
== END ==
PROVIDERS: PCP Internal Medicine Adolescent Medicine; Visit Provider Internal Medicine Adolescent Medicine
DX: R06.09 Other forms of dyspnea (principal); R05.2 Subacute cough; R07.81 Pleurodynia
CPT/HCPCS: 71270; Q9967

== ENCOUNTER → 2023-01-09 15:59 | Outpatient (CLI) | payer OTHER, SELFPAY ==
[2023-01-09 16:58] LABS: Basophils # 0.1 K/mm3 (0-0.2); Basophils % 0.7 % (0.1-2.0); Eosinophils # 0.2 K/mm3 (0.0-0.4); Eosinophils % 1.7 % (0.1-12.0); Hematocrit 44.1 % (37.0-47.0); Hemoglobin 14.3 g/dL (12.2-16.2); Lymphocytes # 2.5 K/mm3 (0.7-4.5); Lymphocytes % 28.9 % (10-50); Mean Corpuscular HGB Conc 32.4 g/dL (31.8-35.4); Mean Corpuscular Hemoglobin 29.9 pg (27.0-31.2); Mean Corpuscular Volume 92.1 fl (81-99); Mean Platelet Volume 8.6 fl (7.4-10.4); Monocytes # 0.7 K/mm3 (0.1-1.0); Monocytes % 8.3 % (1.7-9.3); Neutrophils # 5.3 K/mm3 (1.8-7.8); Neutrophils % 60.4 % (37.0-80.0); Platelet Count 275 K/mm3 (142-424); Red Blood Count 4.79 M/mm3 (4.20-5.40); Red Cell Distribution Width 14.6 % (11.5-17.5); White Blood Count 8.7 K/mm3 (4.8-10.8)
[2023-01-09 17:26] LABS: Alanine Aminotransferase 22 U/L (12-78); Albumin/Globulin Ratio 1.3 (1.1-1.8); Alkaline Phosphatase 218 U/L (38-126); Anion Gap 15.3 mEq/L (5-15); Aspartate Amino Transferase 27 U/L (14-36); Bilirubin,Total 0.4 mg/dl (0.2-1.3); Blood Urea Nitrogen 9 mg/dl (7-17); Carbon Dioxide 32 mmol/L (22.0-30.0); Chloride 95 mmol/L (98-107); Estimated Glomerular Filt Rate 103 ml/min (>60); GFR (African American) 125 ML/MIN (>60); Globulin 3.1 g/dL (1.3-3.2); Glucose 143 mg/dl (74-100); Potassium 4.3 mmoL/L (3.5-5.1); Sodium 138 mmol/L (136-145); Total Protein,Serum 7.1 g/dl (6.3-8.2)
== END ==
PROVIDERS: PCP Internal Medicine Adolescent Medicine; Referring Provider Internal Medicine; Visit Provider Nurse Practitioner Family
DX: R94.5 Abnormal results of liver function studies (principal); K75.4 Autoimmune hepatitis; K75.3 Granulomatous hepatitis, not elsewhere classified; K75.81 Nonalcoholic steatohepatitis (NASH); K74.01 Hepatic fibrosis, early fibrosis
CPT/HCPCS: 36415; 80053; 85025

== ENCOUNTER → 2023-01-11 07:55 | Outpatient (CLI) | payer OTHER, SELFPAY ==
--- NOTE | 2023-01-11 08:02 | NM_ITS ---
APPROVED REPORT Exam: Nuclear Stress Test Indication: Chest pain, SOB, Tobacco use, Family history Patient Location: Outpatient Stress Tech: Ximena [place] Tech:Gema Roca, ARRT, RT (R)(N) Ht: 5 ft 2 in Wt: 180 lbs Bra Size: 36A HR: 92 bpm BP: 139/79 mmHg BSA: 1.83 m2 TID: 1.17 BMI: 32.9 History: Chest pain, SOB, Tobacco use, Family history Procedure: Patient exercised on Sergio protocol 7:00 minutes and sec, resting heart rate 92 bpm, resting blood pressure 139/79 mmHg, with exercise maximum heart rate achived was 146 bpm which is 90 % of the maximum predicted heart rate and blood pressure was 207/88 mmHg. Test was stopped due to SOB. Patient denied any complaint of chest pain. Patient has good exercise capacity, achieved 10.1 METs of workload on treadmill, the blood pressure response to exercise was exaggerated. Cardiac Stress and Resting SPECT Images: Cardiac Stress and Resting SPECT images were obtained using technetium 99m Myoview 32.3 mCi stress and 10.94 mCi at rest. Resting and supine stress imaging demonstrate a medium-sized, mild, fixed perfusion defect that is no longer visualized in the prone stress images. Findings are consistent with diaphgramatic attenuation. Gated imaging demonstrates a normal LV global and regional systolic function. LVEF is calculated at 65%. Conclusion: Diaphragmatic attenuation is present. No evidence of fixed or reversible perfusion defects. Gated imaging demonstrates a normal LV global and regional systolic function. LVEF is calculated at 65%. Electronically signed by : Yecenia Stafford, 01/12/2023 00:38:14
== END ==
LOC: RAD 07:55
PROVIDERS: PCP Internal Medicine Adolescent Medicine; Visit Provider Internal Medicine Adolescent Medicine
DX: R07.9 Chest pain, unspecified (principal)
CPT/HCPCS: 78452; 93017; A9502

== ENCOUNTER → 2023-02-13 13:59 | Outpatient (CLI) | payer OTHER, SELFPAY ==
[2023-02-13 15:04] LABS: Chloride 95 mmol/L (98-107); Potassium 4.4 mmoL/L (3.5-5.1); Sodium 137 mmol/L (136-145)
[2023-02-13 15:07] LABS: Anion Gap 17.4 mEq/L (5-15); Blood Urea Nitrogen 13 mg/dl (7-17); Calcium 9.2 mg/dl (8.4-10.2); Carbon Dioxide 29 mmol/L (22.0-30.0); Estimated Glomerular Filt Rate 103 ml/min (>60); GFR (African American) 125 ML/MIN (>60); Glucose 102 mg/dl (74-100); Magnesium 1.9 mg/dl (1.6-2.3)
== END ==
LOC: RT 13:59
PROVIDERS: PCP Internal Medicine Adolescent Medicine; Visit Provider Physician Assistant
DX: R07.9 Chest pain, unspecified (principal); Z72.0 Tobacco use
CPT/HCPCS: 36415; 80048; 83735; 93306

== ENCOUNTER 2023-02-27 10:02 | Observation (INO) | payer OTHER, SELFPAY ==
[2023-02-27] VITALS (20 sets, daily range): BP systolic 90–154; BP diastolic 50–81; PULSE 65–83; RESP 13–19; TEMP 36.7–37.1; O2SAT 93–98; BMI 31.1; BMI 32.0; BMI 32.2
--- NOTE | 2023-02-27 10:02 | ECG_ITS ---
APPROVED REPORT Exam: Resting ECG HR:81 bpm ECG Measurements Heart Rate 81 AXES AZ 176 P 70 QRSd 88 QRS 50 QT 363 T 58 QTc 401 Conclusion SINUS RHYTHM POSSIBLE RIGHT VENTRICULAR CONDUCTION DELAY [RSR (QR) IN V1/V2] BORDERLINE ECG UNCONFIRMED REPORT Electronically signed by : Rick Salcedo MD 03/01/2023 21:41:54
--- NOTE | 2023-02-27 10:32 | XR_ITS ---
FINAL REPORT CLINICAL HISTORY: dyspnea FINDINGS: SINGLE-VIEW CHEST The heart size is normal. The mediastinum is normal. The lungs are clear. There is no pneumothorax. IMPRESSION: No acute cardiopulmonary process. Reviewed, Interpreted and Dictated by Carlos Alberto Medrano III, MD Transcribed by Ysabel Rodas Authenticated and [facility]
--- NOTE | 2023-02-27 10:33 | HMH.EDGENADL ---
Discharge Plan Disposition Patient Disposition: Home, Self-Care Prescriptions Prescriptions: No Action budesonide 3 mg capsule,delayed,extend.release 9 mg PO QHS Patient Comments: TAKE 3 CAPSULES BY MOUTH AT BEDTIME DIRECTED ursodiol 300 mg capsule 600 mg PO BID Patient Comments: TAKE 2 CAPSULES BY MOUTH TWICE DAILY DIRECTED mycophenolate mofetil 500 mg tablet 1,000 mg PO ONCE Patient Comments: TAKE 2 TABLETS BY MOUTH ONCE DAILY IN THE MORNING clonazepam 0.5 mg tablet 0.5 mg PO BID PRN (Reason: Anxiety) 30 Days vitamin E 800 unit capsule 45 mg PO DAILY cholecalciferol (vitamin D3) 50 mcg (2,000 unit) capsule 50 mcg PO DAILY aspirin 81 mg capsule 81 mg PO DAILY losartan-hydrochlorothiazide 50-12.5 mg tablet 1 tab PO DAILY Qty: 30 3RF metoprolol succinate 25 mg tablet extended release 24 hr 25 mg PO QDAY Qty: 30 3RF amitriptyline 25 MG tablet 25 mg PO HS Referrals Follow up/Referrals: Provider,Referral, MD [Primary Care Provider] - See instructions Clinical Impressions Clinical Impression: Chest pain Discharge ED Provider: Donna Ybarra General Adult HPI General Stated complaint: CP Time Seen by Provider: 02/27/23 10:27 History of Present Illness HPI narrative: 57-year-old female presenting today with chest pain. I got a call from her PA with cardiology clinic who sent her here with an abnormal echo. She had a stress test 6 weeks ago which was unremarkable to have an echo recently with some inferior hypokinesis concerning for ischemia. She has been having exertional chest pain that resolves with rest over the last 2 months no crescendo effect at this point. She has had aspirin this morning and had a nitroglycerin over at the [facility] which improved her chest pain. They sent her to the emergency department to be admitted for inpatient cath. Related Data Home Medications Medication Instructions Recorded Confirmed amitriptyline 25 mg tablet 25 mg PO HS SLEEP 10/29/19 02/27/23 budesonide 3 mg 9 mg PO QHS 01/19/22 02/27/23 capsule,delayed,extended release clonazepam 0.5 mg tablet 0.5 mg PO BID PRN Anxiety 30 days 01/19/22 02/27/23 ursodiol 300 mg capsule 600 mg PO BID 01/19/22 02/27/23 aspirin 81 mg capsule 81 mg PO DAILY 01/30/23 02/27/23 cholecalciferol (vitamin D3) 50 50 mcg PO DAILY 01/30/23 02/27/23 mcg (2,000 unit) capsule mycophenolate mofetil 500 mg tablet 1,000 mg PO ONCE 01/30/23 02/27/23 vitamin E 800 unit capsule 45 mg PO DAILY 01/30/23 02/27/23 Previous Rx's Medication Instructions Recorded losartan 50 mg-hydrochlorothiazide 1 tab PO DAILY #30 tabs 01/30/23 12.5 mg tablet metoprolol succinate 25 mg 25 mg PO QDAY #30 tabs 01/30/23 tablet,extended release 24 hr Allergies Allergy/AdvReac Type Severity Reaction Status Date / Time No Known Allergies Allergy Verified 02/27/23 08:54 [facility] Disclaimer: The information contained in this section may have been updated after the patient was seen, as this information can be updated by other users. Medical History Asthma Chest pain Chronic cough Family history of ischemic heart disease before age 50 Granulomatous lung disease Pulmonary fibrosis, unspecified Surgical History History of cholecystectomy History of hysterectomy Family History Other COPD (chronic obstructive pulmonary disease) Diabetes Heart disease Lung cancer Social History Smoking Status: Current every day smoker tobacco type: cigarettes packs per day: 1 alcohol intake: never substance use type: denies use current occupational status: employed Travel in the last 8 weeks: None household members: spouse housing: house current occupat
[2023-02-27 10:45] LABS: Alanine Aminotransferase 33 U/L (12-78); Albumin Level 4.4 g/dl (3.5-5.0); Albumin/Globulin Ratio 1.2 (1.1-1.8); Alkaline Phosphatase 229 U/L (38-126); Aspartate Amino Transferase 37 U/L (14-36); Bilirubin,Total 0.7 mg/dl (0.2-1.3); Blood Urea Nitrogen 14 mg/dl (7-17); Calcium 9.3 mg/dl (8.4-10.2); Carbon Dioxide 31 mmol/L (22.0-30.0); Chloride 100 mmol/L (98-107); Estimated Glomerular Filt Rate 103 ml/min (>60); GFR (African American) 125 ML/MIN (>60); Globulin 3.7 g/dL (1.3-3.2); Glucose 167 mg/dl (74-100); Sodium 138 mmol/L (136-145); Total Protein,Serum 8.1 g/dl (6.3-8.2)
[2023-02-27 10:46] LABS: Basophils # 0.1 K/mm3 (0-0.2); Basophils % 0.7 % (0.1-2.0); Eosinophils # 0.1 K/mm3 (0.0-0.4); Eosinophils % 1.2 % (0.1-12.0); Hemoglobin 13.8 g/dL (12.2-16.2); Lymphocytes # 2.2 K/mm3 (0.7-4.5); Lymphocytes % 23.7 % (10-50); Mean Corpuscular HGB Conc 32.2 g/dL (31.8-35.4); Mean Corpuscular Hemoglobin 29.2 pg (27.0-31.2); Mean Corpuscular Volume 90.6 fl (81-99); Monocytes # 0.7 K/mm3 (0.1-1.0); Monocytes % 7.2 % (1.7-9.3); Neutrophils # 6.2 K/mm3 (1.8-7.8); Neutrophils % 67.2 % (37.0-80.0); Platelet Count 316 K/mm3 (142-424); Red Blood Count 4.74 M/mm3 (4.20-5.40); Red Cell Distribution Width 15.1 % (11.5-17.5); White Blood Count 9.2 K/mm3 (4.8-10.8)
--- NOTE | 2023-02-27 11:02 | PC.NURSE ---
[place]ot calling Dr. Leyva office for SUNDAR OROZCO
--- NOTE | 2023-02-27 11:03 | PC.NURSE ---
ED doctor on the phone with Dr. Salcedo
--- NOTE | 2023-02-27 11:14 | PC.NURSE ---
Rounded on patient; pt giving ice chips that was okay'd by Dr. Ybarra. Family at , no other needs at this time. Pt aware that she is being admitted and we are just waiting on her room assignment at this time. Call light within reach
[2023-02-27 11:18] LABS: Troponin I < 0.01 ng/ml (0.00-0.034)
[2023-02-27 11:23] LABS: Activated Partial Thrombo Time 28.5 seconds (22.8-30.6); INR 0.99 (0.9-1.1); Prothrombin Time 10.7 seconds (10.1-12.5)
--- NOTE | 2023-02-27 11:26 | HMH.PHAINT1 ---
Pharmacy Intervention Comments: MEDICATION RECONCILIATION COMPLETED ON PATIENT USING EXTERNAL FILL HISTORY FROM PHARMACY AND AILEEN REPORT. -WAYLON FLANAGAN, CHRISTINAD
--- NOTE | 2023-02-27 11:31 | IR_ITS ---
APPROVED REPORT Patient Location: Inpatient Fishing Instructor: MURIEL Medrano RT (R) PROCEDURES Left heart catheterization Left ventriculogram Selective coronary angiogram INDICATION Unstable angina, Abnormal echocardiogram with regional wall motion abnormality, Known coronary artery disease Informed consent was obtained prior to the procedure. COMPLICATIONS None Estimated Blood Loss: Less than 10 ML TECHNIQUE One percent lidocaine used to anesthetize the right anterior aspect of the wrist. The right radial artery was accessed via the Seldinger technique. A 6 Malay sheath was placed in the right radial artery. 150 mg magnesium sulfate, 800 mcg of nitroglycerin, 1mg Lidocaine and 5000 U Heparin were given through the arterial sheath. The papa catheter was also used to perform left heart catheterization, left ventriculogram and selective coronary angiogram. At the end of the procedure the sheath was removed good hemostasis was achieved using Traclet band, patient was transferred to the postop holding area in stable condition. ANGIOGRAPHIC RESULTS The left main artery Normal The left anterior descending artery Is proximally normal and has a mid vessel myocardial bridge which compresses to 50% during systole The circumflex artery Nondominant with 10 to 20% luminal irregularities with a 30% stenosis in the first obtuse marginal artery The right coronary artery Dominant and has a proximal concentric 30% stenosis with a mid vessel 30% stenosis The CERVANTES ventriculogram reveals Normal to slightly hyperdynamic at 70% The left ventricular end-diastolic pressure 15 mmHg IMPRESSION Inconsequential myocardial bridge as described above Coronary artery disease as described above Hyperdynamic ventricle with mildly elevated LVEDP PLAN 1. Maximize antianginal medications 2. Avoidance of tobacco products Electronically signed by : Adam Mast MD 02/27/2023 13:46:12
--- NOTE | 2023-02-27 11:44 | PC.NURSE ---
pt to label paster via wheelchair with BETTYE Miller.
[2023-02-27 12:51] LABS: Coronavirus 19, PCR Not Detected (NotDetected); Influenza A, PCR Not Detected (NotDetected); Influenza B, PCR Not Detected (NotDetected)
--- NOTE | 2023-02-27 19:53 | EXP.HPDC ---
General Admission date:: 02/27/23 Discharge date: 02/27/23 *Admission Date: 02/27/23 *Chief complaint: Angina *History of present illness: 57-year-old white female with multiple risk factors for cardiac disease who has been followed with cardiology and has been worked up with some stress test and EKGs, they have been unremarkable but she continues to have unstable angina and was seen in the clinic today sent to ER where an angina continued and was unrelieved with some nitro, admitted to hospital for further evaluation and left heart cath. [facility] Disclaimer: The information contained in this section may have been updated after the patient was seen, as this information can be updated by other users. Medical History Asthma Cervical cancer Chest pain Chronic cough Family history of ischemic heart disease before age 50 Granulomatous lung disease History of chest pain Pulmonary fibrosis, unspecified Surgical History History of cholecystectomy History of hysterectomy Family History Diabetes Heart disease Lung cancer COPD (chronic obstructive pulmonary disease) Social History Smoking Status: Never smoker alcohol intake: never substance use type: denies use current occupational status: employed Travel in the last 8 weeks: None household members: spouse housing: house current occupation: [employer] current occupational exposures/hazards: No caffeine: Yes Review of Systems Review of Systems Review of systems:: pertinent systems reviewed and negative unless documented below Exam Data for Last 24 hours Vital signs and Labs for Last 24 Hours: Temp Pulse Resp BP Pulse Ox O2 Del Method 98.0 F 80 18 110/56 L 98 Room Air 02/27/23 11:30 02/27/23 18:05 02/27/23 18:05 02/27/23 18:05 02/27/23 18:05 02/27/23 18:32 Laboratory Results - last 24 hr 02/27/23 10:09: WBC 9.2, RBC 4.74, Hgb 13.8, Hct 43.0, MCV 90.6, MCH 29.2, MCHC 32.2, RDW 15.1, Plt Count 316, MPV 9.0, Neut % (Auto) 67.2, Lymph % (Auto) 23.7, [place] % (Auto) 7.2, Eos % (Auto) 1.2, Baso % (Auto) 0.7, Neut # (Auto) 6.2, Lymph # (Auto) 2.2, [place] # (Auto) 0.7, Eos # (Auto) 0.1, Baso # (Auto) 0.1, PT 10.7, INR 0.99, APTT 28.5, Sodium 138, Potassium 4.0, Chloride 100, Carbon Dioxide 31 H, Anion Gap 11.0, BUN 14, Creatinine 0.60, Estimated GFR 103, Est GFR ( Amer) 125, Glucose 167 H, Calcium 9.3, Total Bilirubin 0.7, AST 37 H, ALT 33, Alkaline Phosphatase 229 H, Troponin I < 0.01, Total Protein 8.1, Albumin 4.4, Globulin 3.7 H, Albumin/Globulin Ratio 1.2 02/27/23 11:39: SARS-CoV-2 (PCR) Not detected, Influenza A Untype (PCR) Not detected, Influenza Type B (PCR) Not detected I & O for Last 24 hours: Intake & Output 02/25/23 02/26/23 02/27/23 02/28/23 11:59 11:59 11:59 11:59 Intake Total 360 / 360 Output Total 0 / 0 Balance 360 / 360 Weight 175 lb 176 lb 2.389 oz Constitutional Constitutional: no acute distress *Routine HEENT Exam Head: Present normocephalic Eye: Present EOMI and PERRL ENT: Present mucous membranes moist *Routine Neck Exam Neck: Present supple; Absent lymphadenopathy *Routine Respiratory Exam Respiratory: Present CTA bilaterally *Routine Cardiovascular Exam Cardiovascular: Present RRR *Routine Abdominal Exam Abdominal: Present soft and normoactive bowel sounds; Absent tenderness *Routine Rectal Exam Rectal:: deferred *Routine Genitalia Exam Genitalia:: deferred *Routine Extremities Exam Extremities: Absent cyanosis, clubbing or edema *Routine Skin Exam Skin: Present warm; Absent rash *Routine Neurological Exam Neurological: Present alert and oriented X3 Meds Home Medications and Allergies Home Medications Medication Instructions Recorded Confirmed Type budesonide 3
--- NOTE | 2023-02-28 11:08 | CARE MANAGER ---
Called and spoke with patient regarding recent discharge. She stated that she is doing well, she is planning to scrap picker new medicationstoday that were prescribed at discharge, and was aware of scheduled f/u appt. She had no questions or concerns at time of call.
== END 2023-02-27 20:46 | disposition home or self-care (01) ==
LOC: ER 10:50 → 2ND 11:19
PROVIDERS: Internal Medicine; Admitting Provider Internal Medicine Adolescent Medicine; Emergency Provider Student in an Organized Health Care Education/Training Program; PCP Internal Medicine Adolescent Medicine; Visit Provider Internal Medicine Adolescent Medicine
DX: I10 Essential (primary) hypertension (principal); Z79.620 Long term (current) use of immunosuppressive biologic; Z79.899 Other long term (current) drug therapy; I25.110 Atherosclerotic heart disease of native coronary artery with unstable angina pectoris; Z82.49 Family history of ischemic heart disease and other diseases of the circulatory system; F17.210 Nicotine dependence, cigarettes, uncomplicated
CPT/HCPCS: 71045; 80053; 84484; 85025; 85610; 85730; 87636; 93005; 93458; 99152; 99285; C1725; C1769; G0378; J1644; Q9967

== ENCOUNTER → 2023-04-25 08:59 | Outpatient (CLI) | payer OTHER, SELFPAY ==
[2023-04-25 09:30] LABS: Basophils % 0.6 % (0.1-2.0); Eosinophils # 0.1 K/mm3 (0.0-0.4); Eosinophils % 1.5 % (0.1-12.0); Hematocrit 37.7 % (37.0-47.0); Hemoglobin 12.5 g/dL (12.2-16.2); Lymphocytes # 1.5 K/mm3 (0.7-4.5); Lymphocytes % 21.4 % (10-50); Mean Corpuscular HGB Conc 33.3 g/dL (31.8-35.4); Mean Corpuscular Volume 90.1 fl (81-99); Mean Platelet Volume 8.7 fl (7.4-10.4); Monocytes # 0.5 K/mm3 (0.1-1.0); Monocytes % 6.8 % (1.7-9.3); Neutrophils # 4.9 K/mm3 (1.8-7.8); Neutrophils % 69.7 % (37.0-80.0); Platelet Count 293 K/mm3 (142-424); Red Blood Count 4.18 M/mm3 (4.20-5.40); Red Cell Distribution Width 15.3 % (11.5-17.5)
[2023-04-25 10:05] LABS: Alanine Aminotransferase 24 U/L (12-78); Albumin Level 3.6 g/dl (3.5-5.0); Albumin/Globulin Ratio 1.2 (1.1-1.8); Alkaline Phosphatase 184 U/L (38-126); Aspartate Amino Transferase 24 U/L (14-36); Bilirubin,Total 0.4 mg/dl (0.2-1.3); Blood Urea Nitrogen 14 mg/dl (7-17); Calcium 8.8 mg/dl (8.4-10.2); Carbon Dioxide 31 mmol/L (22.0-30.0); Chloride 100 mmol/L (98-107); Estimated Glomerular Filt Rate 86 ml/min (>60); GFR (African American) 104 ML/MIN (>60); Glucose 155 mg/dl (74-100); Sodium 137 mmol/L (136-145); Total Protein,Serum 6.6 g/dl (6.3-8.2)
== END ==
PROVIDERS: PCP Internal Medicine Adolescent Medicine; Visit Provider Nurse Practitioner Family
DX: R94.5 Abnormal results of liver function studies (principal); K75.3 Granulomatous hepatitis, not elsewhere classified; K75.81 Nonalcoholic steatohepatitis (NASH); K75.4 Autoimmune hepatitis
CPT/HCPCS: 36415; 80053; 85025

== ENCOUNTER → 2023-08-10 08:48 | Outpatient (CLI) | payer OTHER, SELFPAY ==
[2023-08-10 09:27] LABS: Basophils # 0.1 K/mm3 (0-0.2); Basophils % 0.7 % (0.1-2.0); Eosinophils # 0.1 K/mm3 (0.0-0.4); Eosinophils % 1.1 % (0.1-12.0); Hematocrit 41.8 % (37.0-47.0); Hemoglobin 13.9 g/dL (12.2-16.2); Lymphocytes # 2.2 K/mm3 (0.7-4.5); Lymphocytes % 25.5 % (10-50); Mean Corpuscular HGB Conc 33.2 g/dL (31.8-35.4); Mean Corpuscular Hemoglobin 31.2 pg (27.0-31.2); Mean Corpuscular Volume 94.1 fl (81-99); Mean Platelet Volume 8.8 fl (7.4-10.4); Monocytes # 0.7 K/mm3 (0.1-1.0); Monocytes % 7.6 % (1.7-9.3); Neutrophils # 5.7 K/mm3 (1.8-7.8); Neutrophils % 65.1 % (37.0-80.0); Platelet Count 257 K/mm3 (142-424); Red Blood Count 4.44 M/mm3 (4.20-5.40); Red Cell Distribution Width 15.5 % (11.5-17.5); White Blood Count 8.8 K/mm3 (4.8-10.8)
[2023-08-10 10:52] LABS: Chloride 98 mmol/L (98-107); Potassium 4.9 mmoL/L (3.5-5.1); Sodium 137 mmol/L (136-145)
[2023-08-10 10:55] LABS: Alanine Aminotransferase 26 U/L (12-78); Albumin Level 4.1 g/dl (3.5-5.0); Albumin/Globulin Ratio 1.4 (1.1-1.8); Alkaline Phosphatase 195 U/L (38-126); Anion Gap 15.9 mEq/L (5-15); Aspartate Amino Transferase 26 U/L (14-36); Bilirubin,Total 0.8 mg/dl (0.2-1.3); Blood Urea Nitrogen 20 mg/dl (7-17); Calcium 8.9 mg/dl (8.4-10.2); Carbon Dioxide 28 mmol/L (22.0-30.0); Estimated Glomerular Filt Rate 57 ml/min (>60); GFR (African American) 69 ML/MIN (>60); Globulin 2.9 g/dL (1.3-3.2); Glucose 216 mg/dl (74-100)
== END ==
LOC: LAB 08:50
PROVIDERS: PCP Internal Medicine Adolescent Medicine; Visit Provider Nurse Practitioner Family
DX: R94.5 Abnormal results of liver function studies (principal); K75.4 Autoimmune hepatitis; K75.3 Granulomatous hepatitis, not elsewhere classified; K75.81 Nonalcoholic steatohepatitis (NASH)
CPT/HCPCS: 36415; 80053; 85025

== ENCOUNTER 2023-09-12 08:04 | Outpatient (CLI) | payer OTHER, SELFPAY ==
--- NOTE | 2023-09-12 08:09 | MR_ITS ---
FINAL REPORT CLINICAL HISTORY: gallstones FINDINGS: Multiplanar MR imaging of the abdomen was performed using the MRCP protocol. 3-D images were also obtained and reviewed. The liver parenchyma is homogeneous. There is no intra or extrahepatic biliary ductal dilatation. The gallbladder is surgically absent. The common bile duct measures 6 mm. There are no signal abnormality seen within the common bile duct to suggest choledocholithiasis. The pancreatic duct is normal size. IMPRESSION: Surgically absent gallbladder without evidence of choledocholithiasis. Reviewed, Interpreted and Dictated by Naeem Lobo MD Transcribed by Ysabel Rodas Authenticated and . [facility]
== END 2023-09-12 23:59 ==
PROVIDERS: PCP Internal Medicine Adolescent Medicine; Visit Provider Nurse Practitioner Family
DX: K83.4 Spasm of sphincter of Oddi (principal); R74.8 Abnormal levels of other serum enzymes; R94.5 Abnormal results of liver function studies
CPT/HCPCS: 74181; 76376

== ENCOUNTER 2023-10-25 07:29 | Outpatient (CLI) | payer OTHER, SELFPAY ==
--- NOTE | 2023-10-25 07:32 | XR_ITS ---
FINAL REPORT CLINICAL HISTORY: COUGH COMPARISON: 06/15/2022 FINDINGS: TWO-VIEW CHEST The heart size is normal. The mediastinum is normal. There is a new focal right middle lobe opacity, may represent atelectasis but a mass is not excluded. There is no pneumothorax. IMPRESSION: Right middle lobe opacity, mass is not excluded. Recommend follow-up radiographs or chest CT. Reviewed, Interpreted and Dictated by Carlos Alberto Medrano III, MD Transcribed by Ysabel Rodas Authenticated and . [facility]
== END 2023-10-25 23:59 ==
LOC: RAD 07:30
PROVIDERS: PCP Internal Medicine Adolescent Medicine; Visit Provider Internal Medicine Adolescent Medicine
DX: R05.9 Cough, unspecified (principal)
CPT/HCPCS: 71046

== ENCOUNTER 2023-11-12 14:16 | Outpatient (CLI) | payer OTHER, SELFPAY ==
--- NOTE | 2023-11-12 14:54 | XR_ITS ---
FINAL REPORT CLINICAL HISTORY: FEVER COMPARISON: 10/25/2023 FINDINGS: TWO-VIEW CHEST The heart size is normal. The mediastinum is normal. The previously identified right perihilar airspace infiltrate has resolved. There is no effusion. There is no pneumothorax. IMPRESSION: No acute cardiopulmonary process. Reviewed, Interpreted and Dictated by Naeem Lobo MD Transcribed by Ysabel Rodas Authenticated and [facility]
[2023-11-12 14:56] LABS: Basophils % 0.6 % (0.1-2.0); Eosinophils # 0.1 K/mm3 (0.0-0.4); Eosinophils % 0.6 % (0.1-12.0); Hematocrit 42.7 % (37.0-47.0); Hemoglobin 14.1 g/dL (12.2-16.2); Lymphocytes # 1.6 K/mm3 (0.7-4.5); Lymphocytes % 21.1 % (10-50); Mean Corpuscular HGB Conc 32.9 g/dL (31.8-35.4); Mean Corpuscular Hemoglobin 31.5 pg (27.0-31.2); Mean Corpuscular Volume 95.7 fl (81-99); Mean Platelet Volume 9.4 fl (7.4-10.4); Monocytes # 0.4 K/mm3 (0.1-1.0); Monocytes % 5.7 % (1.7-9.3); Neutrophils # 5.4 K/mm3 (1.8-7.8); Platelet Count 228 K/mm3 (142-424); Red Blood Count 4.46 M/mm3 (4.20-5.40); Red Cell Distribution Width 14.4 % (11.5-17.5); White Blood Count 7.5 K/mm3 (4.8-10.8)
[2023-11-12 16:05] LABS: Alanine Aminotransferase 22 U/L (12-78); Albumin Level 3.8 g/dl (3.5-5.0); Albumin/Globulin Ratio 1.5 (1.1-1.8); Alkaline Phosphatase 198 U/L (38-126); Anion Gap 11.5 mEq/L (5-15); Aspartate Amino Transferase 25 U/L (14-36); Bilirubin,Total 0.7 mg/dl (0.2-1.3); Blood Urea Nitrogen 16 mg/dl (7-17); Calcium 9.2 mg/dl (8.4-10.2); Carbon Dioxide 27 mmol/L (22.0-30.0); Chloride 94 mmol/L (98-107); Estimated Glomerular Filt Rate 86 ml/min (>60); GFR (African American) 104 ML/MIN (>60); Globulin 2.5 g/dL (1.3-3.2); Potassium 4.5 mmoL/L (3.5-5.1); Sodium 128 mmol/L (136-145); Total Protein,Serum 6.3 g/dl (6.3-8.2)
[2023-11-12 16:53] LABS: Glucose 507 mg/dl (74-100)
[2023-11-13 13:48] LABS: Hemoglobin A1C 13.5 % (4.0-6.0)
[2023-11-13 16:29] LABS: EBV Ab VCA, IgG >600.0 U/mL (0.0-17.9); EBV Ab VCA, IgM 55.7 U/mL (0.0-35.9)
== END 2023-11-12 23:59 ==
LOC: LAB 14:17
PROVIDERS: PCP Internal Medicine Adolescent Medicine; Visit Provider Internal Medicine Adolescent Medicine
DX: R50.9 Fever, unspecified (principal); R73.09 Other abnormal glucose; R94.5 Abnormal results of liver function studies; R74.8 Abnormal levels of other serum enzymes; K75.4 Autoimmune hepatitis; R76.8 Other specified abnormal immunological findings in serum
CPT/HCPCS: 36415; 71046; 80053; 83036; 85025; 86665; 87040

== ENCOUNTER 2024-02-01 10:38 | Outpatient (CLI) | payer OTHER, SELFPAY ==
--- NOTE | 2024-02-01 10:50 | XR_ITS ---
FINAL REPORT CLINICAL HISTORY: ACUTE COUGH COMPARISON: 01/19/2024 FINDINGS: Two views of the chest were obtained. The heart size and pulmonary vascularity are within normal limits. The mediastinum is normal. No acute pulmonary abnormality is identified. There is no pneumothorax. The bony thorax is intact. IMPRESSION: No active cardiopulmonary disease. Reviewed, Interpreted and Dictated by Carlos Alberto Medrano III, MD Transcribed by Ysabel Rodas Authenticated and [facility]
[2024-02-01 10:53] LABS: Basophils # 0.1 K/mm3 (0-0.2); Basophils % 0.5 % (0.1-2.0); Eosinophils # 0.1 K/mm3 (0.0-0.4); Eosinophils % 1.2 % (0.1-12.0); Hematocrit 37.9 % (37.0-47.0); Hemoglobin 12.3 g/dL (12.2-16.2); Lymphocytes # 1.1 K/mm3 (0.7-4.5); Lymphocytes % 12.3 % (10-50); Mean Corpuscular HGB Conc 32.5 g/dL (31.8-35.4); Mean Corpuscular Hemoglobin 28.5 pg (27.0-31.2); Mean Corpuscular Volume 87.7 fl (81-99); Mean Platelet Volume 9.7 fl (7.4-10.4); Monocytes # 0.6 K/mm3 (0.1-1.0); Monocytes % 6.7 % (1.7-9.3); Neutrophils # 7.2 K/mm3 (1.8-7.8); Neutrophils % 79.3 % (37.0-80.0); Platelet Count 259 K/mm3 (142-424); Red Blood Count 4.32 M/mm3 (4.20-5.40); Red Cell Distribution Width 15.9 % (11.5-17.5); White Blood Count 9.1 K/mm3 (4.8-10.8)
[2024-02-01 11:45] LABS: Chloride 98 mmol/L (98-107); Potassium 3.6 mmoL/L (3.5-5.1); Sodium 133 mmol/L (136-145)
[2024-02-01 11:48] LABS: Alanine Aminotransferase 28 U/L (12-78); Alkaline Phosphatase 157 U/L (38-126); Amylase 97 U/L (30-110); Anion Gap 10.6 mEq/L (5-15); Aspartate Amino Transferase 32 U/L (14-36); Bilirubin,Total 0.8 mg/dl (0.2-1.3); Blood Urea Nitrogen 17 mg/dl (7-17); Calcium 9.2 mg/dl (8.4-10.2); Carbon Dioxide 28 mmol/L (22.0-30.0); Estimated Glomerular Filt Rate 74 ml/min (>60); GFR (African American) 89 ML/MIN (>60); Glucose 108 mg/dl (74-100)
[2024-02-01 11:49] LABS: Albumin/Globulin Ratio 1.1 (1.1-1.8); Globulin 3.6 g/dL (1.3-3.2); Lipase 124 U/L (23-300); Total Protein,Serum 7.6 g/dl (6.3-8.2)
[2024-02-02 15:01] LABS: EBV Ab VCA, IgG >600.0 U/mL (0.0-17.9); EBV Ab VCA, IgM 51.2 U/mL (0.0-35.9)
== END 2024-02-01 23:59 | disposition home or self-care (01) ==
LOC: LAB 10:39
PROVIDERS: PCP Internal Medicine Adolescent Medicine; Visit Provider Nurse Practitioner Family
DX: R50.9 Fever, unspecified (principal); R10.13 Epigastric pain; R05.1 Acute cough; R94.5 Abnormal results of liver function studies; R74.8 Abnormal levels of other serum enzymes
CPT/HCPCS: 36415; 71046; 80053; 82150; 83690; 85025; 86665

== ENCOUNTER 2024-02-22 13:49 | Outpatient (CLI) | payer OTHER, SELFPAY ==
--- NOTE | 2024-02-22 | US_ITS ---
Ultrasound Sonograher: PROCEDURE: US TRANSVAGINAL CLINICAL INDICATION: FREQUENT UTI, BLEEDING AFTER INTERCOURSE, H/O HEMATURIA COMPARISON: No exams were available for comparison FINDINGS: Transvaginal sonographic images of the pelvis were obtained. UTERUS: The uterus is surgically absent. The vaginal cuff is intact. LEFT OVARY: Not visualized, surgically absent RIGHT OVARY: Not visualized, surgically absent Both ovaries are surgically absent. There is no fluid in the cul-de-sac. The bladder still had significant residual volume after she had voided. IMPRESSION: 1. The uterus is surgically absent. The vaginal cuff is intact. 2. The ovaries were not seen and are likely surgically absent. 3. No fluid in the cul-de-sac. 4. There was significant postvoid residual urine in the bladder. Dictated by: Vic Rahman MD 02/23/2024 11:38 Vic Rahman MD in OV 02/23/2024 11:38
--- NOTE | 2024-02-22 | US_ITS ---
FINAL REPORT CLINICAL HISTORY: recurrent uti FINDINGS: The right kidney measures 10.6 cm in length. It is normal in echogenicity. There is no hydronephrosis. The left kidney measures 11.5 cm in length. It is normal in echogenicity. There is no hydronephrosis. There is borderline splenomegaly measuring 13.4 cm in length. IMPRESSION: Borderline splenomegaly. Reviewed, Interpreted and Dictated by Carlos Alberto Medrano III, MD Transcribed by Ysabel Rodas Authenticated and [facility]
== END 2024-02-22 23:59 | disposition home or self-care (01) ==
LOC: RAD 13:50
PROVIDERS: PCP Internal Medicine Adolescent Medicine; Visit Provider Internal Medicine Adolescent Medicine
DX: N39.0 Urinary tract infection, site not specified (principal); N93.0 Postcoital and contact bleeding; Z87.448 Personal history of other diseases of urinary system
CPT/HCPCS: 76770; 76830

== ENCOUNTER 2024-07-23 09:38 | Outpatient (CLI) | payer OTHER, SELFPAY ==
--- NOTE | 2024-07-23 09:40 | MM_ITS ---
PROCEDURE INFORMATION: Exam: MG Bilateral Screening 3D Mammography Exam date and time: 07/23/2024 9:28 AM Age: 59 years old Clinical indication: Screening mammogram TECHNIQUE: Imaging protocol: Bilateral Screening tomosynthesis and 2D mammography including computer-aided detection (CAD) when performed. COMPARISON: 1. MG MM DIG SCREENING MAMM BI W/CAD 12/13/2020 8:48 AM 2. MG MAMM 3D OTTO SCREENING 09/19/2019 2:16 PM 3. MG DMDBAV DIG MAMM-DX MARINANA W ADD VIEWS 01/28/2015 8:21 AM 4. BL US BREAST-LT COMPLETE W/AXILLA 01/28/2015 9:09 AM FINDINGS: MAMMOGRAPHY: Breast composition: There are scattered areas of fibroglandular density. Mass: None. Architectural distortion: No new or suspicious architectural distortion. Calcifications: No new or suspicious calcifications are present Asymmetric density: No new or suspicious asymmetric density is present Skin thickening: None. Axillary adenopathy: None. Other findings: Stable postoperative findings on the left IMPRESSION: No mammographic evidence of malignancy. Recommend annual screening mammography unless otherwise clinically indicated. ASSESSMENT: BI-RADS category 2: Benign.
== END 2024-07-23 23:59 | disposition home or self-care (01) ==
LOC: RAD 09:38
PROVIDERS: PCP Internal Medicine Adolescent Medicine; Visit Provider Internal Medicine Adolescent Medicine
DX: Z12.31 Encounter for screening mammogram for malignant neoplasm of breast (principal)
CPT/HCPCS: 77063; 77067

== ENCOUNTER 2025-03-31 09:56 | Outpatient (CLI) | payer BC, SELFPAY ==
--- NOTE | 2025-03-31 10:04 | XR_ITS ---
FINAL REPORT TECHNIQUE: 2 views left femur CLINICAL HISTORY: left hip and thigh pain COMPARISON: None FINDINGS: LEFT FEMUR: Two images of the left femur were obtained. There is no evidence of fracture or dislocation. The joint spaces are intact. There is no soft tissue abnormality identified. IMPRESSION: No acute bony abnormality. Reviewed, Interpreted and Dictated by Ginette Tejeda MD Transcribed by Mya Price Authenticated and [facility]
--- NOTE | 2025-03-31 10:04 | XR_ITS ---
FINAL REPORT TECHNIQUE: Left hip 3 views CLINICAL HISTORY: LT HIP PAIN COMPARISON: None FINDINGS: AP and frog leg views of the left hip were obtained. There is no acute fracture or dislocation. Degenerative joint disease is present with multiple subchondral cyst in the roof of the acetabulum. Soft tissues are unremarkable. IMPRESSION: No acute osseous abnormality of the left hip. Degenerative joint disease with multiple subchondral cysts in the roof of the acetabulum. Reviewed, Interpreted and Dictated by Ginette Tejeda MD Transcribed by Mya Price Authenticated and [facility]
--- OUTSIDE RECORDS SUMMARY | 2025-03-31 10:14 | XMS_ITS | Encounter Summary ---
Author Organization Healthcare Address [address] [place] [address] Care Team Providers Care Desktop Publisher Name Role Phone Rick Salcedo MD Primary Care Provider [phone] Reason for Referral * Consultation (Routine) - Closed Specialty Diagnoses / Procedures Referred By Contac t Referred To Contact Pulmonary Disease / Pulmonology Diagnoses Subacute cough Rick Salcedo MD [address] [place] [address] [place] [address] [facility] [address] [place] [address] Phone: tel: fax: Referral ID Status Reason Start Date Expiration Date V isits Requested Visits Authorized [id number] Closed Specialty Services Required 10/26/2023 04/26/2025 1 1 Encounter Details Date Type Department Care Team (Late st Contact Info) Description 10/26/2023 [facility] [address] [place] [address] Rick Salcedo MD [address] [place], [place] [address]y [address] [place] [address] Subacute cough (Primary Dx) Social History Tobacco Use Types Packs/Day Years Used Date Smoking Tobacco: Smoker, Current Status Unknown Comments:Smoking for 20 year s Alcohol Use Standard Drinks/Week Comments No 0 (1 standard drink = 0.6 oz pur e alcohol) Comments Unknown Sex and Gender Information Value Date Recorded Sex Assigned at Not on file Legal Sex Female 6:27 PM EDT Gender Identity Not on file Sexual Orientation Not on file documented as of this encounter Plan of Treatment Scheduled Referrals Name Type Priority Associated Diagnoses Order Schedule Ambulatory referral to Pulmonology Outpatient Referral Routine Subacute cough Expected: 10/26/2023 (Approximate), Expires: 04/27/2025 documented as of this encounter Visit Diagnoses Diagnosis Subacute cough- Primary documented in this encounter Care Teams Desktop Publisher Relationship Specialty Start Date End Date Rick Salcedo MD [address] [place] [id number] PCP - General 12/31/20 documented as of this encounter
--- OUTSIDE RECORDS SUMMARY | 2025-03-31 10:14 | XMS_ITS | Referral Summary ---
Author Organization [employer] ([place], [place], [place], [place]) Address [address] [place] [address] Care Team Providers Care Manager Income Tax Name Role Phone Unavailable Primary Care Provider Unavailabl e Social History Tobacco Use Types Packs/Day Years Used Date Smoking Tobacco: Never Assessed Comments Unknown Sex and Gender Information Value Date Recorded Sex Assigned at Female 02/14/2022 8:46 PM CDT Legal Sex Female 8:46 PM CDT Gender Identity Female 02/14/2022 8:46 PM CDT Sexual Orientation Not on file Plan of Treatment Not on file
--- OUTSIDE RECORDS SUMMARY | 2025-03-31 10:14 | XMS_ITS | Encounter Summary ---
Author Organization [employer] ([place], [place], [place], [place]) Address [address] [place] [address] Care Team Providers Care Chemistry Technical Officer Name Role Phone Unavailable Primary Care Provider Unavailabl e Encounter Details Date Type Department Care Team (Late st Contact Info) Description 06/18/2020 Transcribed Document [facility] Radiology [address] [place] [address] Provider, Tyrone Esquivel MD Social History Tobacco Use Types Packs/Day Years Used Date Smoking Tobacco: Never Assessed Comments Unknown Sex and Gender Information Value Date Recorded Sex Assigned at Female 02/14/2022 8:46 PM CDT Legal Sex Female 8:46 PM CDT Gender Identity Female 02/14/2022 8:46 PM CDT Sexual Orientation Not on file documented as of this encounter Miscellaneous Notes * Cerner Conversion Note - Tyrone Esquivel ProviderMD - 06/18/2020 10:25 AM EDT PAT Adult Entered On: 06/18/2020 9:28 EDT Performed On: 06/18/2020 9:25 EDT by FLORECITA VALDEZ Vital Measurements Temperature Source : Temporal artery scanning Temperature Mode : Fahrenheit Temperature, Fahrenheit : 97.8 Deg F Clinical Temperature, C : 36.6 Deg C Pulse Method : Pulse Oximetry Peripheral Pulse Rate : 87 bpm Respiratory Rate : 16 Breaths/Min Blood Pressure Location : Arm, right upper Blood Pressure Source : Non-Invasive BP Device Blood Pressure Position : Sitting Systolic Blood Pressure : 133 mmHg Diastolic Blood Pressure : 61 mmHg Oxygen Saturation : 97 % Oxygen Therapy Mode : Room air FLORECITA VALDEZ - 06/18/2020 9:25 EDT Pain Assessment Pain Assessment : Initial assessment Pain Scale Used : 0-10 Scale FLORECITA VALDEZ 06/18/2020 9:25 EDT Height and Weight, Clinical Dosing Height Source : Stated Height Entry Format : Pitt Height, Feet : 5 ft(Converted to: 152 cm, 60 Inch) Height, Inches : 2 Inch(Converted to: 0 ft 2 Inch, 5.08 cm) Clinical Height : 157.48 cm Weight Source : Standing scale Weight Entry Format : Pitt Clinical Dosing Weight : 72.27 kg Weight, Pounds : 159 lb Body Surface Area (BSA) : 1.74 m2 Body Mass Index : 29.1 kg/m2 (HI) [place] Body Weight : 50 kg FLORECITA VALDEZ 06/18/2020 9:25 EDT Health Histories Smoking Status : 10 or more cigarettes (1/2 pack or more)/day in last 30 days Smokeless Tobacco Status : Never Desires Tobacco Cessation Medication : No Reason for No Tobacco Cessation Medication : Refuses FDA approved medications FLORECITA VALDEZ 06/18/2020 9:25 EDT Social History (As Of: 06/18/2020 09:28:25 EDT) Alcohol: Alcohol Use History No. (Last Updated: 06/18/2020 09:26:13 EDT by FLORECITA VALDEZ) Infectious Disease History Has the patient ever been tested for COVID-19? : Yes, Patient stated results Negative Date of COVID-19 test known? : Yes Does patient have symptoms of COVID-19? : No COVID19 Screening : No Experiencing Infectious Disease Symptoms : No symptoms Physical contact outside [place] in the last 30 days : No Infectious Disease History : None Tuberculosis Symptoms : None FLORECITA VALDEZ 06/18/2020 9:25 EDT COVID19 PreProcedure Screening Is this an Emergent or Add on Procedure? : No Has patient been isolated since the test : Yes Exposed to COVID19 symptoms since test? : No FLORECITA VALDEZ 06/18/2020 9:25 EDT Anesthesia/Transfusion History Family History of Anesthesia Reaction : No prior transfusion(s) Blood Transfusion Acceptable to Patient : Yes Transfusion History : Prior anesthesia without reaction Family History of Anesthesia Reaction : None FLORECITA VALDEZ 06/18/2020 9:25 EDT Advance Directive Patient has Advance Directive *Q : No, patient refuses Advance Directive information FLORECITA VALDEZ 06/18/2020 9:25 EDT [place] Suicide Severity Rating Scale (C-SSRS) CSSRS Past Month Wish to be : No CSSRS Past Month Suicidal Thoughts : No CSSRS Lifetime Suicide Behavior : No Suicide Severity Rating Score : 0 Suicide Severity Rating : No Additional Care Required at this time FLORECITA VALDEZ 06/18/2020 9:25 EDT Psychosocial History Currently in Unsafe Situation : No FLORECITA VALDEZ 06/18/2020 9:25 EDT General Info Arrived From : Home Legal Guardian : Daughter Want Family/Rep/Phys Notified of Admit : No Emergency Contact #1 : avery jose Emergency Contact #1 Emergency Contact #1 Relationship : daughter Emergency Contact #2 : johnathan Emergency Contact #2 Phone Number : na Emergency Contact #2 Relationship : na Primary Language : Citizen Of [place] Preferred Communication Mode : Verbal Communication Barrier : None Diversity Manager Needed : No JOSÉ MIGUEL FLORECITA 06/18/2020 9:25 EDT Venu Scale Venu Sensory Perception : No impairment Venu Moisture : Rarely moist Venu Activity : Walks frequently Venu Mobility : No limitation Venu Nutrition : Adequate Venu Friction and Shear : No apparent problem Venu Score : 22 JOSÉ MIGUELFLORECITA 06/18/2020 9:25 EDT Sleep Apnea Risk Assmt Hx of Obstructive Sleep Apnea Diagnosis : No Snore Loudly : No Tired, Fatigued, or Sleepy During Day : No Observed Stopping Breathing During Sleep : No Have/Are Being Treated for Hypertension : No BMI Greater Than 35 kg/m2 : No Age over 50 Years Old : Yes Neck Circumference Greater Than 40 cm : No Gender Male : No STOP-BANG Sleep Apnea Risk Level Score : 1 JOSÉ MIGUELFLORECITA 06/18/2020 9:25 EDT Pain Scale Intensity : 0 GODFREYFLORECITA PRICE 06/18/2020 9:25 EDT Image 4 - Images currently included in the form version of this document have not been included in the text rendition version of the form. documented in this encounter Plan of Treatment Not on file documented as of this encounter Visit Diagnoses Not on filedocumented in this encounter
--- OUTSIDE RECORDS SUMMARY | 2025-03-31 10:14 | XMS_ITS | Clinical Summary ---
Author Organization [employer] ([place], [place], [place], [place]) Address [address] [place] [address] Care Team Providers Care Check Weigher Name Role Phone Unavailable Primary Care Provider [...]
--- OUTSIDE RECORDS SUMMARY | 2025-03-31 10:14 | XMS_ITS | Encounter Summary ---
Author Organization [facility] ([place], [place], [place], [place]) Address [address] [place] [address] Care Team Providers Care Business Line Manager Name Role Phone Unavailable Primary Care Provider Unavailabl e Encounter Details Date Type Department Care Team (Late st Contact Info) Description 06/18/2020 Transcribed Document [facility] Radiology [address] [place] [address] Provider, Tyrone Esquivel MD Social [...] Notes * Cerner Conversion Note - Tyrone Connell MD - 06/18/2020 11:32 AM EDT Patient: DINA PETER Age: 54 years Sex: Female : 1965 Associated Diagnoses: None Author: MELISA HAUSER PA-C PRE PROCEDURE NOTE I have evaluated the patient prior to the procedure. ASA score: 2 Mallampati score:3 ASA SCORE ASA 1: Healthy patients ASA 2 : Mild to moderate systemic disease caused by the surgical condition or by other pathological processes, and medically well controlled. ASA 3: Severe disease process which limits activity but is not incapacitating ASA 4: Severe incapacitating disease process that is a constant threat to life ASA 5: Moribund patient not expected to survive 24 hours with or without an operation ASA 6: Declared brain- patient whose organs are being removed for donor purposes Mallampati Score Class I: Soft palate, uvula, fauces, pillars visible. Class II: Soft palate, major part of uvula, fauces visible Class III: Soft palate, base of uvula visible Class IV: Only hard palate visible documented in this encounter Plan of Treatment Not on file documented as of this encounter Visit Diagnoses Not on filedocumented in this encounter
--- OUTSIDE RECORDS SUMMARY | 2025-03-31 10:14 | XMS_ITS | Encounter Summary ---
Author Organization [employer] ([place], [place], [place], [place]) Address [address] [place] [address] Care Team Providers Care Bottom Liquor Attendant Name Role Phone Unavailable Primary Care Provider Unavailabl e Encounter Details Date Type Department Care Team (Late st Contact Info) Description 06/18/2020 Transcribed Document [facility] [address] [place] [id number] Provider, Tyrone Esquivel MD Social [...] Note - Tyrone Connell MD - 06/18/2020 10:31 AM EDT Patient Education Materials Follows: Moderate Conscious Sedation, Adult, Care After These instructions provide you with information about caring for yourself after your procedure. Your health care provider may also give you more specific instructions. Your treatment has been planned according to current medical practices, but problems sometimes occur. Call your health care provider if you have any problems or questions after your procedure. What can I expect after the procedure? After your procedure, it is common: ??? To feel sleepy for several hours. ??? To feel clumsy and have poor balance for several hours. ??? To have poor judgment for several hours. ??? To vomit if you eat too soon. Follow these instructions at home: For at least 24 hours after the procedure: ??? Do not: ? Participate in activities where you could fall or become injured. ? Drive. ? Use heavy machinery. ? Drink alcohol. ? Take sleeping pills or medicines that cause drowsiness. ? Make important decisions or sign legal documents. ? Take care of children on your own. ??? Rest. Eating and drinking ??? Follow the diet recommended by your health care provider. ??? If you vomit: ? Drink water, juice, or soup when you can drink without vomiting. ? Make sure you have little or no nausea before eating solid foods. General instructions ??? Have a responsible adult stay with you until you are awake and alert. ??? Take ontb-ujm-idmwodr and prescription medicines only as told by your health care provider. ??? If you smoke, do not smoke without supervision. ??? Keep all follow-up visits as told by your health care provider. This is important. Contact a health care provider if: ??? You keep feeling nauseous or you keep vomiting. ??? You feel light-headed. ??? You develop a rash. ??? You have a fever. Get help right away if: ??? You have trouble breathing. This information is not intended to replace advice given to you by your health care provider. Make sure you discuss any questions you have with your health care provider. Document Released: 05/27/2014 Document Revised: 07/19/2018 Document Reviewed: 11/25/2016 [employer] Patient Education ? 2020 [employer] Steps to Quit Smoking Smoking tobacco is the leading cause of preventable . It can affect almost every organ in the body. Smoking puts you and people around you at risk for many serious, long-lasting (chronic) diseases. Quitting smoking can be hard, but it is one of the best things that you can do for your health. It is never too late to quit. How do I get ready to quit? When you decide to quit smoking, make a plan to help you succeed. Before you quit: ??? Pick a date to quit. Set a date within the next 2 weeks to give you time to prepare. ??? Write down the reasons why you are quitting. Keep this list in places where you will see it often. ??? Tell your family, friends, and co-workers that you are quitting. Their support is important. ??? Talk with your doctor about the choices that may help you quit. ??? Find out if your health insurance will pay for these treatments. ??? Know the people, places, things, and activities that make you want to smoke (triggers). Avoid them. What first steps can I take to quit smoking? Throw away all cigarettes at home, at work, and in your car. ??? Throw away the things that you use when you smoke, such as ashtrays and lighters. ??? Clean your car. Make sure to empty the ashtray. ??? Clean your home, including curtains and carpets. What can I do to help me quit smoking? Talk with your doctor about taking medicines and seeing a counselor at the same time. You are more likely to succeed when you do both. ??? If you are or , talk with your doctor about counseling or other ways to quit smoking. Do not take medicine to help you quit smoking unless your doctor tells you to do so. To quit smoking: Quit right away ??? Quit smoking totally, instead of slowly cutting back on how much you smoke over a period of time. ??? Go to counseling. You are more likely to quit if you go to counseling sessions regularly. Take medicine You may take medicines to help you quit. Some medicines need a prescription, and some you can buy izij-vyi-tjuvper. Some medicines may contain a drug called nicotine to replace the nicotine in cigarettes. Medicines may: ??? Help you to stop having the desire to smoke (cravings). ??? Help to stop the problems that come when you stop smoking (withdrawal symptoms). Your doctor may ask you to use: ??? Nicotine patches, gum, or lozenges. ??? Nicotine inhalers or sprays. ??? Non-nicotine medicine that is taken by mouth. Find resources Find resources and other ways to help you quit smoking and remain smoke-free after you quit. These resources are most helpful when you use them often. They include: ??? Online chats with a counselor. ??? Phone quitlines. ??? Printed self-help materials. ??? Support groups or group counseling. ??? Text messaging programs. ??? Mobile phone apps. Use apps on your mobile phone or tablet that can help you stick to your quit plan. There are many free apps for mobile phones and tablets as well as websites. Examples include Quit Guide from the CDC and smokefree.gov What things can I do to make it easier to quit? Talk to your family and friends. Ask them to support and encourage you. ??? Call a phone quitline (0-240-TXQINOW), reach out to support groups, or work with a counselor. ??? Ask people who smoke to not smoke around you. ??? Avoid places that make you want to smoke, such as: ? Bars. ? Parties. ? Smoke-break areas at work. ??? Spend time with people who do not smoke. ??? Lower the stress in your life. Stress can make you want to smoke. Try these things to help your stress: ? Getting regular exercise. ? Doing deep-breathing exercises. ? Doing yoga. ? Meditating. ? Doing a body scan. To do this, close your eyes, focus on one area of your body at a time from head to toe. Notice which parts of your body are tense. Try to relax the muscles in those areas. How will I feel when I quit smoking? Day 1 to 3 weeks Within the first 24 hours, you may start to have some problems that come from quitting tobacco. These problems are very bad 2?3 days after you quit, but they do not often last for more than 2?3 weeks. You may get these symptoms: ??? Mood swings. ??? Feeling restless, nervous, angry, or annoyed. ??? Trouble concentrating. ??? Dizziness. ??? Strong desire for high-sugar foods and nicotine. ??? Weight gain. ??? Trouble pooping (constipation). ??? Feeling like you may vomit (nausea). ??? Coughing or a sore throat. ??? Changes in how the medicines that you take for other issues work in your body. ??? Depression. ??? Trouble sleeping (insomnia). Week 3 and afterward After the first 2?3 weeks of quitting, you may start to notice more positive results, such as: ??? Better sense of smell and taste. ??? Less coughing and sore throat. ??? Slower heart rate. ??? Lower blood pressure. ??? Clearer skin. ??? Better breathing. ??? Fewer sick days. Quitting smoking can be hard. Do not give up if you fail the first time. Some people need to try a few times before they succeed. Do your best to stick to your quit plan, and talk with your doctor if you have any questions or concerns. Summary ??? Smoking tobacco is the leading cause of preventable . Quitting smoking can be hard, but it is one of the best things that you can do for your health. ??? When you decide to quit smoking, make a plan to help you succeed. ??? Quit smoking right away, not slowly over a period of time. ??? When you start quitting, seek help from your doctor, family, or friends. This information is not intended to replace advice given to you by your health care provider. Make sure you discuss any questions you have with your health care provider. Document Released: 06/02/2010 Document Revised: 10/24/2019 Document Reviewed: 10/25/2019 [employer] Patient Education ? 2020 [employer]. Liver Biopsy, Care After These instructions give you information on caring for yourself after your procedure. Your doctor may also give you more specific instructions. Call your doctor if you have any problems or questions after your procedure. What can I expect after the procedure? After the procedure, it is common to have: ??? Pain and soreness where the biopsy was done. ??? Bruising around the area where the biopsy was done. ??? Sleepiness and be tired for a few days. Follow these instructions at home: Medicines ??? Take mnfh-epc-gqagdei and prescription medicines only as told by your doctor. ??? If you were prescribed an antibiotic medicine, take it as told by your doctor. Do not stop taking the antibiotic even if you start to feel better. ??? Do not take medicines such as aspirin and ibuprofen. These medicines can thin your blood. Do not take these medicines unless your doctor tells you to take them. ??? If you are taking prescription pain medicine, take actions to prevent or treat constipation. Your doctor may recommend that you: ? Drink enough fluid to keep your pee (urine) clear or pale yellow. ? Take zvjz-pbp-pwotftz or prescription medicines. ? Eat foods that are high in fiber, such as fresh fruits and vegetables, whole grains, and beans. ? Limit foods that are high in fat and processed sugars, such as fried and sweet foods. Caring for your cut ??? Follow instructions from your doctor about how to take care of your cuts from surgery (incisions). Make sure you: ? Wash your hands with soap and water before you change your bandage (dressing). If you cannot use soap and water, use hand foundation relations director. ? Change your bandage as told by your doctor. ? Leave stitches (sutures), skin glue, or skin tape (adhesive) strips in place. They may need to stay in place for 2 weeks or longer. If tape strips get loose and curl up, you may trim the loose edges. Do not remove tape strips completely unless your doctor says it is okay. ??? Check your cuts every day for signs of infection. Check for: ? Redness, swelling, or more pain. ? Fluid or blood. ? Pus or a bad smell. ? Warmth. ??? Do not take baths, swim, or use a hot tub until your doctor says it is okay to do so. Activity ??? Rest at home for 1?2 days or as told by your doctor. ? Avoid sitting for a long time without moving. Get up to take short walks every 1?2 hours. ??? Return to your normal activities as told by your doctor. Ask what activities are safe for you. ??? Do not do these things in the first 24 hours: ? Drive. ? Use machinery. ? Take a bath or shower. ??? Do not lift more than 10 pounds (4.5 kg) or play contact sports for the first 2 weeks. General instructions ??? Do not drink alcohol in the first week after the procedure. ??? Have someone stay with you for at least 24 hours after the procedure. ??? Get your test results. Ask your doctor or the department that is doing the test: ? When will my results be ready? ? How will I get my results? ? What are my treatment options? ? What other tests do I need? ? What are my next steps? Keep all follow-up visits as told by your doctor. This is important. Contact a doctor if: ??? A cut bleeds and leaves more than just a small spot of blood. ??? A cut is red, puffs up (swells), or hurts more than before. ??? Fluid or something else comes from a cut. ??? A cut smells bad. ??? You have a fever or chills. Get help right away if: ??? You have swelling, bloating, or pain in your belly (abdomen). ??? You get dizzy or faint. ??? You have a rash. ??? You feel sick to your stomach (nauseous) or throw up (vomit). ??? You have trouble breathing, feel short of breath, or feel faint. ??? Your chest hurts. ??? You have problems talking or seeing. ??? You have trouble with your balance or moving your arms or legs. Summary ??? After the procedure, it is common to have pain, soreness, bruising, and tiredness. ??? Your doctor will tell you how to take care of yourself at home. Change your bandage, take your medicines, and limit your activities as told by your doctor. ??? Call your doctor if you have symptoms of infection. Get help right away if your belly swells, your cut bleeds a lot, or you have trouble talking or breathing. This information is not intended to replace advice given to you by your health care provider. Make sure you discuss any questions you have with your health care provider. Document Released: 05/15/2009 Document Revised: 08/16/2018 Document Reviewed: 08/16/2018 [employer] Patient Education ? 2020 [employer]. documented in this encounter Plan of Treatment Not on file documented as of this encounter Visit Diagnoses Not on filedocumented in this encounter
--- OUTSIDE RECORDS SUMMARY | 2025-03-31 10:14 | XMS_ITS | Encounter Summary ---
Author Organization [employer] ([place], [place], [place], [place]) Address [address] [place] [address] Care Team Providers Care Yard Switcher Name Role Phone Unavailable Primary Care Provider Unavailabl e Encounter Details Date Type Department Care Team (Late st Contact Info) Description 06/18/2020 Transcribed Document [facility] [address] [place] [id number] Provider, Tyrone Esquivel MD Social History [...] Connell MD - 06/18/2020 10:31 AM EDT [facility] [address] [place] [id number] DINA PETER :1965 Visit Time:06/18/2020 Your Visit Summary Your Care Team Admitting Physician - TITUS MCGRAW NP-FAM Attending Physician - TITUS MCGRAW NP-FAM Primary Care Physician - YANET CRAMER (REF), JOSÉ MIGUEL Referring Physician - YANET CRAMER (REF), JOSÉ MIGUEL Discharge Vitals Temperature 36.6 ??C Respiratory Rate 16 Blood Pressure 133/61 What to do next Instructions From Your Care Team Diet after Discharge: Resume usual diet as tolerated, _, _ Activity after Discharge: _, Rest and relax today, No strenuous activity Lifting Restrictions: No heavy lifting over 10 pounds Driving after Discharge: Do not drive until 24 hours after no longer taking pain medications Showering/Bathing: _, No tub bathing, soaking or swimming. Keep site completely dry for 24 hours. Notify Provider of: New/worsening symptoms Wound/Incision Care after Discharge: Keep operative site/wound site clean and dry, Change dressing with dry dressing daily and as needed. Do not sign legal documents for 24 hours. Follow-Up Appointments Follow Up with TITUS MCGRAW NP-FAM When Within 2 to 3 days Comments Follow-up as instructed Where: Medications What How Much When Instructions Next Dose amitriptyline (amitriptyline 25 mg oral tablet) 1 Tablet(s) Oral At Bedtime 06/19/2020 clonazePAM (clonazePAM 0.5 mg oral tablet) See instructions one tab once per day 06/19/2020 multivitamin with minerals (Vitamin D with Minerals oral tablet) 1 Tablet(s) Oral Every Day 06/19/2020 vitamin E 800 International Units Oral Every Day 06/19/2020 Take your medications faithfully. Do NOT skip medication. Do NOT stop taking medications without the direction of a physician. Carry a list of your medications with you at all times, and take this medication list with you to your first follow up visit. Report any side effects. Avoid herbal remedies unless discussed with your physician. As part of your treatment plan, your physician may have prescribed a limited course of a controlled substance. This medication may be given to help people with moderate or severe pain or for other medical conditions, but there are risks involved with treatment. Common side effects may include nausea, constipation, drowsiness, sweating, itching, dry mouth, and rash. More serious side effects may include cognitive and motor impairment, like problems with thinking, concentrating, alertness, and movement (e.g. slowed reflexes), and driving and operating heavy machinery can be dangerous. It is important for you to talk to your physician if you have these side effects or questions. These controlled substances can produce physical dependence and be habit-forming if taken for an extended period of time, which means that the body has gotten used to them and may experience withdrawal symptoms if they are abruptly stopped. Withdrawal symptoms can include runny nose, sweating, goose bumps, diarrhea, abdominal cramping, rapid heartbeat, difficulty sleeping, and nervousness. Please dispose of unused and medications per your retail pharmacy guidance. Allergies No Known Medication Allergies Immunizations This Visit No Immunizations Found Education Materials Moderate Conscious Sedation, Adult, Care After These [...] you are awake and alert. ??? Take lwwe-abn-tltvwtg and prescription medicines only as told by [...] 05/27/2014 Document Revised: 07/19/2018 Document Reviewed: 11/25/2016 [employer] Patient Education ?? 2020 [employer] Steps to Quit Smoking Smoking tobacco [...] a prescription, and some you can buy xmod-mpj-cjugtup. Some medicines may contain a drug called [...] encourage you. ??? Call a phone quitline (3-916-ZNKANOW), reach out to support groups, or work [...] quitting tobacco. These problems are very bad 2???3 days after you quit, but they do not often last for more than 2???3 weeks. You may get these symptoms: ??? [...] Week 3 and afterward After the first 2???3 weeks of quitting, you may start to [...] 06/02/2010 Document Revised: 10/24/2019 Document Reviewed: 10/25/2019 [employer] Patient Education ?? 2020 [employer] Liver Biopsy, Care After These instructions give [...] these instructions at home: Medicines ??? Take wmlz-idl-hfapjao and prescription medicines only as told by [...] (urine) clear or pale yellow. ? Take gxqu-ccg-jeuuvmw or prescription medicines. ? Eat foods that [...] cannot use soap and water, use hand chief petroleum engineer. ? Change your bandage as told by [...] so. Activity ??? Rest at home for 1???2 days or as told by your doctor. ? Avoid sitting for a long time without moving. Get up to take short walks every 1???2 hours. ??? Return to your normal activities [...] 05/15/2009 Document Revised: 08/16/2018 Document Reviewed: 08/16/2018 [employer] Patient Education ?? 2020 [employer]. Emergency Awareness and Preventative Care STROKE is an EMERGENCY Every Minute Counts Act FAST and Check for these signs: FACE Does the face look uneven? ARM Does one arm drift down? SPEECH Does their speech sound strange? TIME Call at any sign of stroke Stroke Risk Factors Atrial Fibrillation (irregular heartbeat) Diabetes Family history of stroke Heart Disease Heavy alcohol use High Blood Pressure High Cholesterol Physical inactivity and obesity Smoking Cigarette Smoking The facts are clear, cigarette smoking will shorten your life. Smoking can cause many illnesses along the way. As a healthcare provider, we recommend that you stop smoking. Assistance with quitting is available by contacting 2-283-QPXP-NOW. This is a free resource providing counseling, support, and referral. Or you may contact your personal physician. National Suicide Prevention Lifeline: The National Suicide Prevention Lifeline is a national network of local crisis centers that provides free and confidential emotional support to people in suicidal crisis or emotional distress 24 hours a day, 7 days a week. Don't Wait! Stop a Heart Attack Before it Starts What is a heart attack? A heart attack is damage or to a part of the heart from severely decreased or lack of blood flow to the heart. Over time, arteries can become narrow from the buildup of fat and cholesterol, which is called plaque. The plaque can rupture causing a blood clot to form. When the blood clot forms, the artery can become severely narrowed or completely blocked, causing a heart attack. Heart attack is the leading cause of in the [place]. 85% of muscle damage occurs within the first 2 hours. Delay in the recognition of heart attack symptoms increases the chances of . Know the early symptoms of a heart attack: Nausea Feeling of fullness in chest Jaw Pain Pain that travels down one or both arms Fatigue/being tired Anxiety Back Pain Chest pressure, squeezing, or discomfort Shortness of breath Sweating, or a cold sweat Feeling of impending doom There are unusual signs of a heart attack, too! Women, the elderly, and diabetics may present with atypical symptoms: Fainting/dizziness Weakness Confusion Risk Factors for a Heart Attack Some heart disease risk factors, such as age and family history, cannot be changed. Others, like smoking and lack of exercise, can be changed. Smoking High Cholesterol High Blood Pressure Family History Obesity Age Gender (Males are at higher risk) Lack of Exercise Diabetes Diet Stress Excessive Alcohol Intake If you or someone you know is experiencing the signs and symptoms of a heart attack, DON???T DELAY. Call immediately and seek help. If someone collapses, perform CPR! Do not attempt to drive if you are having symptoms of heart attack. Hands-Only CPR Why Hands-Only CPR? Hands-Only CPR has been shown to be as effective as conventional CPR for cardiac arrests that occur outside of a hospital. Survival depends on immediately receiving CPR from someone nearby. How do you perform Hands-Only CPR? There are two easy steps: Call if you see a teen or adult collapse Push hard and fast in the center of the chest at a beat of 100 beats per minute. Save a life! 4 WAYS TO GET AHEAD OF SEPSIS SEPSIS is a MEDICAL EMERGENCY. Time matters! Infections put you and your family at risk for a life-threatening condition called sepsis. Sepsis is the body's extreme response to an infection. It is life-threatening, and without timely treatment, sepsis can rapidly lead to tissue damage, organ failure, and . Sepsis happens when an infection you already have-in your skin, lungs, urinary tract or somewhere else-triggers a chain reaction throughout your body. 1 PREVENT INFECTIONS Take good care of chronic conditions. Talk to your doctor about getting the recommended vaccines. 2 PRACTICE GOOD HYGIENE Wash your hands frequently. Keep cuts or open sores clean and covered until they are healed. 3 KNOW THE SYMPTOMS Confusion or disorientation Shortness of breath High heart rate Fever, shivering, or feeling very cold Extreme pain or discomfort Clammy or sweaty skin 4 ACT FAST Get medical care IMMEDIATELY if you suspect sepsis or if you have an infection that is not getting better or is getting worse. To learn more about sepsis and how to prevent infections, visit www.cdc.gov/sepsis. Test Results Laboratory or Other Results This Visit (last charted value for your 06/18/2020 visit) Microbiology 06/15/2020 10:00 AM Novel Coronavirus 2019: Not Detected Patient Name:DINA PETER I have received and understand this information and was given the opportunity to ask questions. Patient/Public Relations Assistant Name: Patient/Public Relations Assistant Signature: Relationship to Patient: Clinician/Hospital Public Relations Assistant Signature: Date: documented in this encounter Plan of Treatment Not on file documented as of this encounter Visit Diagnoses Not on filedocumented in this encounter
--- OUTSIDE RECORDS SUMMARY | 2025-03-31 10:14 | XMS_ITS | Patient Health Record ---
Author Organization [facility] Address [address] [facility] [[email or web address]] [address] [place] [address] Care Team Providers Care Smoke Tester Name Role Phone Rina Obrien Unavailable [phone] Reason For Referral No Information Problems Problem Type SNOMED Code ICD Code Onset Dates Problem Status W/U Status Risk Notes Problem Aggressive ex-smoker (667070221) Aggressive ex-smoker (Z87.891) 08/17/20 Active confirmed TOBACCO USE, QUIT Problem Adult health examination (661738062) Adult general medical exam (Z00.00) 08/17/20 09 Active confirmed ANNUAL EXAM Problem Anogenital warts (147683872) AGW (anogenital warts) (A63.0) 08/17/20 Active confirmed CONDYLOMA ACUMINATA, VULVAR Plan Of Treatment No Information Medical (General) History Medical History History ICD Code SOCIAL HX: smoker. denies drug or alcoho l use. Daughter is Shaye Pritchard SOCIAL HX: smoker. denies drug or alcoho l use. Daughter is Shaye Pritchard Fibroids Endometriosis Ovarian cysts Cervical CA Yeast inf Abnormal Pap Smear CALCIUM 500 + D TABLET Surgical History Surgery Date(Month/Year) Hysterectomy- 2006. local excision of co ndyloma 04/29
--- OUTSIDE RECORDS SUMMARY | 2025-03-31 10:14 | XMS_ITS | Clinical Summary ---
Author Organization [facility] [place] [address] Care Team Providers Care Physical Education Teacher Name Role Phone Rick Salcedo MD Primary Care Provider [phone] Allergies Active Allergy Reactions Criticality Noted Date Comments Venlafaxine Unknown - Patient st ates they do not know rxn details Low 07/08/2014 Medications amitriptyline (Elavil) 25 MG tablet 4 Active Blood Glucose Monitoring Suppl (ONE TOUCH ULTRA 2) w/Device kit device kit 4 Active budesonide EC (Entocort EC) 3 MG 24 hr capsule TAKE 3 CAPSULES BY MOUTH IN THE MORNING 4 Active clonazePAM (KlonoPIN) 0.5 MG tablet 4 Active OneTouch Ultra test strip 4 Active isosorbide mononitrate ER (Imdur) 30 MG 24 hr tablet Take 1 tablet (30 mg) by mouth 1 (one) time each day in the morning. 4 Active Lancets (OneTouch Delica Plus Aribsw57M) misc 4 Active losartan-hydroCH LOROthiazide (Hyzaar) 50-12.5 MG tablet Take 1 tablet by mouth 1 (one) time each day. 4 Active metoprolol succinate XL (Toprol-XL) 25 MG 24 hr tablet Take 1 tablet (25 mg) by mouth 1 (one) time each day. 4 Active mycophenolate (Cellcept) 500 MG tablet TAKE 2 TABLETS BY MOUTH ONCE DAILY IN THE MORNING 4 Active ursodiol (Actigall) 300 MG capsule TAKE 2 CAPSULES BY MOUTH TWICE DAILY DIRECTED 4 Active alpha tocopherol (Vitamin E) 400 units capsule Take 1 capsule (400 Units) by mouth 1 (one) time each day. Take 2 tablets daily Active cholecalciferol (Vitamin D-3) 50 MCG (2000 UT) capsule Take 1 capsule (2,000 Units) by mouth. Active aspirin 81 MG EC tablet Take 1 tablet (81 mg) by mouth 1 (one) time each day. Active SITagliptin-metF ORMIN (Janumet) 50-1000 MG tablet Take 1 tablet by mouth 2 (two) times a day with meals. Active nicotine (Nicoderm CQ) 21 MG/24HR patch Place 1 patch on the skin 1 (one) time each day at the same time. 30 patch 1 4 Active nicotine polacrilex (Nicorette) 4 MG gum Chew 1 each (4 mg) if needed for smoking cessation. 100 each 4 Active albuterol 108 (90 Base) MCG/ACT inhalerIndicatio ns:Subacute cough,ILD (interstitial lung disease) (CMS/HCC) Inhale 2 puffs 4 (four) times a day. 1 each 3 4 Active Social History Tobacco Use Types Packs/Day Years Used Date Smoking Tobacco: Smoker, Current Status Unknown Comments:Smoking for 20 year s Alcohol Use Standard Drinks/Week Comments No 0 (1 standard drink = 0.6 oz pur e alcohol) PHQ-2 Answer Date Recorded Patient Health Questionnaire-2 Score 0 12/07/2023 Comments Unknown Sex and Gender Information Value Date Recorded Sex Assigned at Not on file Legal Sex Female 6:27 PM EDT Gender Identity Not on file Sexual Orientation Not on file Last Filed Vital Signs Vital Sign Reading Time Taken Comments Blood Pressure 99/63 12/07/2023 8:57 AM EDT Pulse 71 12/07/2023 8:57 AM EDT Temperature 36.8 C (98.3 F) 12/07/2023 8:57 AM EDT Respiratory Rate - - Oxygen Saturation 92% 12/07/2023 8:57 AM EDT Inhaled Oxygen Concentration - - Weight 77 kg (169 lb 12.1 oz) 12/07/2023 8:57 AM EDT Height 154.9 cm (5' 1 ) 12/07/2023 8:57 AM EDT Body Mass Index 32.07 12/07/2023 8:57 AM EDT Plan of Treatment Health Maintenance Due Date Last Done Comments [facility]-HIV Screening 1965 [facility]-Hepatitis C Screening 1965 [facility]-Infant/Child/Adol SDOH Screenings 1965 [facility]- SDOH Screenings 1983 [facility]-Adult SDOH Screenings 1983 [facility]-DTaP,Tdap,and Td Vaccine s (1 - Tdap) 1984 [facility]-Hepatitis B Vaccines (1 of 3 - 19+ 3-dose series) 1984 [facility]-Zoster Vaccines (1 of 2) 1984 CT Colonography 2010 Colonoscopy 2010 FIT-DNA 2010 FIT 2010 FOBT 2010 Sigmoidoscopy 2010 [facility]-Colorectal Cancer Screening 2010 [facility]-Breast Cancer Screening 2015 [facility]-Pneumococcal Vaccine: 50 + Years (1 of 1 - PCV) 2015 WEF-MDIGK-12 Vaccine (3 - Moderna risk series) 05/19/2021 04/21/2021, 03/24/2021 [facility]-Depression Screening 12/06/2024 12/07/2023 [facility]-Influenza Vaccine (#1) 04/20/202506/12, 05/01/2017 [facility]-Obesity Intervention Completed 12/07/2023 HPV Vaccines Aged Out No longer eligi ble based on patient's age to complete this topic [facility]-HIB Vaccines Aged Out No longer e ligible based on patient's age to complete this topic [facility]-Hepatitis A Vaccines Aged Out No longer eligible based on patient's age to complete this topic [facility]-IPV Vaccines Aged Out No longer e ligible based on patient's age to complete this topic [facility]-Rotavirus Vaccines Aged Out No lo nger eligible based on patient's age to complete this topic Insurance Jeramy JACKSON [place] [id number] [employer] Care Teams Physical Education Teacher Relationship Specialty Start Date End Date Rick Salcedo MD [address] [place] [address] PCP - General 12/31/20
--- OUTSIDE RECORDS SUMMARY | 2025-03-31 10:14 | XMS_ITS | Encounter Summary ---
Author Organization [facility] ([place], [place], [place], [place]) Address [address] [place] [address] Care Team Providers Care Ice Maker Name Role Phone Unavailable Primary Care Provider Unavailabl e Encounter Details Date Type Department Care Team (Late st Contact Info) Description 06/18/2020 Transcribed Document [facility] Radiology [address] [place] [address] ProviderTyrone MD Social History Tobacco Use Types Packs/Day [...] Connell MD - 06/18/2020 10:31 AM EDT Stroke/Warfarin Instructions Entered On: 06/18/2020 9:31 EDT Performed On: 06/18/2020 9:31 EDT by FLORECITA VALDEZ Stroke/Warfarin Instructions Stroke/TIA Discharge Ins : N/A Warfarin Discharge Ins : N/A FLORECITA VALDEZ - 06/18/2020 9:31 EDT documented in this encounter Plan of Treatment Not on file documented as of this encounter Visit Diagnoses Not on filedocumented in this encounter
--- OUTSIDE RECORDS SUMMARY | 2025-03-31 10:14 | XMS_ITS | Clinical Summary ---
Author Organization [facility] Address [address] [place] [id number] Care Team Providers Care Hole Puncher Strap Name Role Phone Provider, No Known Primary Care Provider Unavail able Social History Tobacco Use Types Packs/Day Years Used Date Smoking Tobacco: Never Assessed Abuse Screen Answer Date Recorded Unsafe at Home or Work/School Not on file Feels Threatened by Someone? Not on file 04/2023 Does Anyone Keep You from Co ntacting Others or Doint Things Outside the Home? Not on file 05/28/2023 Physical Sign of Abuse Present Not on file 1 Housing Stability Answer Date Recorded Current Living Arrangements Not on file 04/2023 Potentially Unsafe Housing Conditions Not on darcy e 05/28/2023 Family and Community Support Answer Michael e Recorded Help with Day-to-Day Activities Not on file 05/28/2023 Lonely or Isolated Not on file 05/28/2023 Employment Answer Date Recorded Do you want help finding or keeping work or a eren b? Not on file 05/28/2023 Disabilities Answer Date Recorded Concentrating, Remembering, or Making Decisions Difficulty Not on file 05/28/2023 Doing Errands Independently Difficulty Not on fi le 05/28/2023 Education Answer Date Recorded Help with school or training? Not on file Preferred Language Not on file 05/28/2023 Comments Unknown Sex and Gender Information Value Date Recorded Sex Assigned at Not on file Legal Sex Female 10:30 AM EDT Gender Identity Not on file Sexual Orientation Not on file Plan of Treatment Health Maintenance Due Date Last Done Comments ANNUAL PHYSICAL 1965 Annual Gynecologic Pelvic and Breast Exam 1965 HEPATITIS C SCREENING 1965 TDAP/TD VACCINES (1 - Tdap) 1984 COLOGUARD 2010 COLON CANCER SCREENING 5 YEAR SIGMOIDOSCOPY 2010 COLONOSCOPY [address] CANCER SCREENING 2010 CT COLONOGRAPHY 2010 FECAL OCCULT BLOOD TEST 2010 FIT Testing (1 year) 2010 Pneumococcal Vaccine 50+ (1 of 1 - PCV) 2015 ZOSTER VACCINE (1 of 2) 2015 MAMMOGRAM 11/03/2017 11/04/2015 COVID-19 Vaccine ( season) 2024 INFLUENZA VACCINE 05/20/2025 Procedures Procedure Name Priority Date/Time Associated Diagnosis Comments MAMMO DIAGNOSTIC LEFT W CAD Routine 11/04/2015 8:04 AM EDT from Last 3 Months or Most Recently Relevant to Health Maintenance Results * Mammo diagnostic left w CAD (11/04/2015 8:04 AM EDT) Anatomical Region Laterality Modality Breast Left Mammography 11/04/2015 8:04 AM EDT Narrative 11/04/2015 9:47 AM EDT DIAGNOSTIC LEFT MAMMOGRAM-11/04/2015- HISTORY- 50-year-old female who is for six-month followup of an asymmetry in the upper outer quadrant of the left breast and who subsequently underwent surgical excision of an area of palpable concern on 03/12/2015, pathology consistent with fibrocystic change, no in situ or invasive carcinoma identified. The patient has no current complaints. TECHNIQUE- Combination 2D/3D standard views of the left breast were performed and compared to prior left mammograms dating back to 01/28/2015. FINDINGS- The breast tissue is fatty replaced. No new postsurgical changes are identified in the upper outer quadrant of the left breast. No new suspicious masses, microcalcifications, or areas of architectural distortion are identified. IMPRESSION- BI-RADS CATEGORY III, PROBABLY BENIGN FINDINGS LEFT BREAST. RECOMMENDATION- Six month follow-up bilateral diagnostic mammogram. CAD was utilized. The standard false-negative rate of mammography is between 10% and 25%. Complex patterns or increased breast density will markedly elevate the false-negative rate of mammography. A results letter, in lay terminology, will be given to the patient at the conclusion of the exam. Physician Order Diagnostic 6 month followup Mammogram with Breast Ultrasound if needed. Diagnosis- Abnormal Mammogram. Reading Radiologist- KEUTRAH HERNDON Releasing Radiologist- KETURAH HERNDON Released Date Time- 11/04/15 0947 Animal Control Officer- Alexi Procedure Note Keturah Herndon MD - 11/04/2015 DIAGNOSTIC LEFT MAMMOGRAM-11/04/2015- HISTORY- 50-year-old female who is for six-month followup of an asymmetry in the upper outer quadrant of the left breast and who subsequently underwent surgical excision of an area of palpable concern on 03/12/2015, pathology consistent with fibrocystic change, no in situ or invasive carcinoma identified. The patient has no current complaints. TECHNIQUE- Combination 2D/3D standard views of the left breast were performed and compared to prior left mammograms dating back to 01/28/2015. FINDINGS- The breast tissue is fatty replaced. No new postsurgical changes are identified in the upper outer quadrant of the left breast. No new suspicious masses, microcalcifications, or areas of architectural distortion are identified. IMPRESSION- BI-RADS CATEGORY III, PROBABLY BENIGN FINDINGS LEFT BREAST. RECOMMENDATION- Six month follow-up bilateral diagnostic mammogram. CAD was utilized. The standard false-negative rate of mammography is between 10% and 25%. Complex patterns or increased breast density will markedly elevate the false-negative rate of mammography. A results letter, in lay terminology, will be given to the patient at the conclusion of the exam. Physician Order Diagnostic 6 month followup Mammogram with Breast Ultrasound if needed. Diagnosis- Abnormal Mammogram. Reading RadiologistPrerna HERNDON Releasing Kunal HERNDON Released Date Time- 11/04/15 0947 Carmelo Truong Kirt Nice MD IMG MAMMOGRAPHY ORDERABLES Fin al Result from Last 3 Months or Most Recently Relevant to Health Maintenance Insurance [employer] Care Teams Hole Puncher Strap Relationship Specialty Start Date End Date Provider, No Known [facility] [place] [address] PCP - General 04/01/15
--- OUTSIDE RECORDS SUMMARY | 2025-03-31 10:14 | XMS_ITS | Encounter Summary ---
Author Organization [employer] ([place], [place], [place], [place]) Address [address] [place] [address] Care Team Providers Care Compound Specialist Name Role Phone Unavailable Primary Care Provider Unavailabl e Encounter Details Date Type Department Care Team (Late st Contact Info) Description 06/18/2020 Transcribed Document [facility] Radiology 1 [place] [address] Provider, Tyrone Esquivel MD Social [...] - 06/18/2020 11:32 AM EDT Patient: DINA PEETR Age: 54 years Sex: Female : 1965 Associated Diagnoses: None Author: MELISA HAUSER PA-C Postoperative Information The patient presents for a CT guided procedure requiring sedation. Review of Systems Constitutional: Negative. Eye: Negative. Ear/Nose/Mouth/Throat: Negative. Respiratory: Negative. Cardiovascular: Negative. Gastrointestinal: Negative. Genitourinary: Negative. Hematology/Lymphatics: Negative. Endocrine: Negative. Immunologic: Negative. Musculoskeletal: Negative. Integumentary: Negative. Neurologic: Negative. Psychiatric: Negative. All other systems are negative Health Status Allergies: Allergic Reactions (Selected) No Known Medication Allergies, Allergies (1) Active Reaction No Known Medication Allergies None Documented Current medications: (Selected) Documented Medications Documented Vitamin D with Minerals oral tablet: 1 Tab, Oral, Daily, 30 Tab, 0 Refill(s) amitriptyline 25 mg oral tablet: 1 Tab, Oral, At Bedtime, 0 Refill(s) clonazePAM 0.5 mg oral tablet: See Instructions, one tab once per day, 0 Refill(s) vitamin E: 800 Int Units, Oral, Daily, 0 Refill(s), Home Medications (4) Active amitriptyline 25 mg oral tablet 25 mg = 1 Tab, Oral, At Bedtime clonazePAM 0.5 mg oral tablet See Instructions Vitamin D with Minerals oral tablet 1 Tab, Oral, Daily vitamin E 800 Int Units, Oral, Daily , No qualifying data available Problem list: All Problems Anxiety / SNOMED CT 88420998 / Confirmed Elevated liver enzymes / SNOMED CT 1332029575 / Confirmed Mononucleosis / SNOMED CT 842718573 / Confirmed Insomnia / SNOMED CT 865892614 / Confirmed, Active Problems (4) Anxiety Elevated liver enzymes Insomnia Mononucleosis Histories Procedure history: hysterecomy. oopherectomy. cholecystectomy. Social History Social & Psychosocial Habits Alcohol 06/18/2020 Alcohol Use History, Social Habits No . Physical Examination VS/Measurements Vital Signs/Vital Measures 06/18/2020 9:25 EDT Blood Pressure Location Arm, right upper Blood Pressure Source Non-Invasive BP Device Blood Pressure Position Sitting Systolic Blood Pressure 133 mmHg Diastolic Blood Pressure 61 mmHg Temperature Source Temporal artery scanning Temperature Mode Fahrenheit Temperature, Fahrenheit 97.8 Deg F Clinical Temperature, C 36.6 Deg C Pulse Method Pulse Oximetry Peripheral Pulse Rate 87 bpm Respiratory Rate 16 Breaths/Min Oxygen Saturation 97 % Oxygen Therapy Mode Room air , Measurements from flowsheet : Measurements 06/18/2020 9:25 EDT Height Source Stated Height Entry Format [place] Height/Length, GUAMANIAN (ft) 5 ft Height/Length GUAMANIAN 2 Inch CLINICALHEIGHT 157.48 cm Tr[place] Body Weight 50 kg Weight Source Standing scale Weight Entry Format [place] Weight Bulgarian lb 159 lb CLINICALWEIGHT 72.27 kg Body Surface Area (BSA) 1.74 m2 Body Mass Index 29.1 kg/m2 HI General: No acute distress. Respiratory: Lungs are clear to auscultation. Cardiovascular: Normal rate, No murmur. Gastrointestinal: Non-distended. Neurologic: Alert. Review / Management Results review: Lab results 06/18/2020 9:10 EDT WBC 8.2 K/uL RBC 4.98 Million/uL Hgb 14.7 Gram/dL Hct 44.4 % MCV 89.2 fL MCH 29.5 pg MCHC 33.1 Gram/dL Platelet Count 255 K/uL MPV 10.5 fL RDW 14.6 % HI Neut % 55.6 % Neut # 4.57 K/uL Lymph % 32.8 % Lymph # 2.70 K/uL [place] % 9.2 % [place] # 0.76 K/uL Eos % 1.7 % Eos # 0.14 K/uL Baso % 0.5 % Baso # 0.04 K/uL Slide Review No IG# 0 x10(3)/uL IG% 0 % PT 11.3 Second(s) INR 1.1 . Impression and Plan Proceed with ordered procedure/exam . documented in this encounter Plan of Treatment Not on file documented as of this encounter Visit Diagnoses Not on filedocumented in this encounter
--- OUTSIDE RECORDS SUMMARY | 2025-03-31 10:14 | XMS_ITS | Clinical Summary ---
Author Organization [facility] Address [address] [place] [phone] Phone Care Team Providers Care Certified Tumor Registrar Name Role Phone Unavailable Primary Care Provider Unavailabl e Allergies No known active allergies Medications ursodioL (ACTIGALL) 300 mg Oral Capsule TAKE 2 CAPSULES BY MOUTH TWICE DAILY DIRECTED Active JANUMET 50-1,000 mg Oral Tablet Take 1 Tablet by mouth. Active ondansetron (ZOFRAN-ODT) 4 mg Oral Tablet, Rapid Dissolve 4 Active nicotine polacrilex (NICORETTE) 4 mg Bucl Gum Take 4 mg by mouth. 4 Active mycophenolate (CELLCEPT) 500 mg Oral Tablet TAKE 2 TABLETS BY MOUTH ONCE DAILY IN THE MORNING Active metoprolol succinate (TOPROL-XL) 25 mg Oral Tablet Sustained Release 24 hr Take 25 mg by mouth daily. Active losartan-hydroch lorothiazide (HYZAAR) 50-12.5 mg Oral Tablet Take 1 Tablet by mouth daily. Active levoFLOXacin (LEVAQUIN) 500 mg Oral Tablet 4 Active isosorbide mononitrate (IMDUR) 30 mg Oral Tablet Sustained Release 24 hr take 1 tablet by mouth once daily in the morning Active budesonide (ENTOCORT EC) 3 mg Oral Capsule, Delayed & Ext.Release TAKE 3 CAPSULES BY MOUTH IN THE MORNING Active ONETOUCH ULTRA TEST Misc Strip 4 Active aspirin 81 mg Oral Tablet, Delayed Release (E.C.) Take 81 mg by mouth daily. Active amitriptyline (ELAVIL) 25 mg Oral Tablet 4 Active albuterol (PROVENTIL HFA;VENTOLIN HFA) 90 mcg/actuation Inhl HFA Aerosol Inhaler Inhale 2 Puffs into the lungs. 4 Active semaglutide (RYBELSUS) 7 mg Oral Tablet Take 1 tablet every day by oral route. Active clonazePAM (KLONOPIN) 0.5 mg Oral Tablet Take 0.5 mg by mouth 3 times daily. Active estradioL (ESTRACE) 0.01 % (0.1 mg/gram) Vagl CreamIndications :Vaginal atrophy Apply 0.5g a pea-sized amount using fingertip into the vagina (or as instructed) nightly x 2 weeks, then use 2-3 x per week. 42.5 g 1 4 Active nitrofurantoin (MACRODANTIN) 50 mg Oral CapsuleIndicatio ns:Recurrent urinary tract infection Take 1 Capsule by mouth nightly. Take 1 capsule nightly as instructed 30 Capsule 5 4 Active Social History Tobacco Use Types Packs/Day Years Used Date Smoking Tobacco: Never Assessed Comments Unknown Sex and Gender Information Value Date Recorded Sex Assigned at Not on file Legal Sex Female 9:00 AM EDT Gender Identity Not on file Sexual Orientation Not on file Obstetrics History Last Filed Vital Signs Vital Sign Reading Time Taken Comments Blood Pressure - - Pulse 83 03/18/2024 9:18 AM EDT Temperature - - Respiratory Rate 16 03/18/2024 9:18 AM EDT Oxygen Saturation 98% 03/18/2024 9:18 AM EDT Inhaled Oxygen Concentration - - Weight 70.8 kg (156 lb) 03/18/2024 9:18 AM EDT Height 157.5 cm (5' 2 ) 03/18/2024 9:18 AM EDT Body Mass Index 28.53 03/18/2024 9:18 AM EDT Plan of Treatment Health Maintenance Due Date Last Done Comments Annual Wellness Exam 1968 Hepatitis C Screening 1983 DTaP/TDaP/Td (1 - Tdap) 1984 Hepatitis B Vaccine (1 of 3 - 19+ 3-dose series) 1984 Pneumococcal Vaccine 50+ (1 of 2 - PCV) 1984 Zoster (1 of 2) 1984 Cervical Cancer Screening 1986 Pap Smear 1986 HPV/Pap Cotest 1995 Cologuard 2010 Colon Cancer Screening 2010 Colonoscopy 2010 FIT 2010 Sigmoidoscopy 2010 Virtual Colonography 2010 Breast Cancer Screening 11/03/2017 11/04/2015 COVID-19 Vaccine (3 - Modern a risk series) 05/19/2021 04/21/2021, 03/24/2021 Influenza Vaccine (#1) 2025 8, 05/01/2017 Meningococcal B Vaccine Aged Out No l onger eligible based on patient's age to complete [place] [id number] [employer]
--- OUTSIDE RECORDS SUMMARY | 2025-03-31 10:14 | XMS_ITS | Encounter Summary ---
Author Organization [employer] [facility] [employer] ([place], [place], [place], [place]) Address [address] [place] [address] Care Team Providers Care Fbi Special Agent Name Role Phone Unavailable Primary Care Provider Unavailabl e Encounter Details Date Type Department Care Team (Late st Contact Info) Description 06/18/2020 Transcribed Document [facility] Radiology [address] [place] [address] Provider, Tyrone Esquivel MD Social [...] Note - Tyrone Esquivel ProviderMD - 06/18/2020 2:06 PM EDT Nursing Discharge Summary Entered On: 06/18/2020 13:07 EDT Performed On: 06/18/2020 13:06 EDT by FLORECITA VALDEZ Discharge Documentation Discharge Date/Time : 06/18/2020 13:00 EDT Transporter Signature : FLORECITA VALDEZ Patient Disposition, General : Discharge Discharge To : Home with ambulatory/outpatient follow-up Mode Of Departure, General Discharge : Ambulatory Accompanied By, Discharge : Daughter IV Discontinued : Yes Personal Belongings With Patient : Yes Discharge Instructions Reviewed With, Opportunity For Questions Given : Patient, Daughter Patient Education Completed : Yes Teaching Method : Explanation, Printed materials Teaching Evaluation : Verbalizes understanding Education Comment : skin wdp resp unalbored/even/a+ox4. mino procedure without diffidulty. FLORECITA VALDEZ - 06/18/2020 13:06 EDT documented in this encounter Plan of Treatment Not on file documented as of this encounter Visit Diagnoses Not on filedocumented in this encounter
--- OUTSIDE RECORDS SUMMARY | 2025-03-31 10:14 | XMS_ITS | Encounter Summary ---
Author Organization [employer] ([place], [place], [place], [place]) Address [address] [place] [address] Care Team Providers Care Medical Review Coordinator Name Role Phone Unavailable Primary Care Provider Unavailabl e Encounter Details Date Type Department Care Team (Late st Contact Info) Description 06/18/2020 Transcribed Document [facility] Radiology [address] [place] [address] ProviderTyrone MD Social History Tobacco [...] Miscellaneous Notes * Cerner Conversion Note - Quan Alvin Connell MD - 06/18/2020 12:52 PM EDT Patient: DINA PETER Age: 54 years Sex: Female : 1965 Associated Diagnoses: None Author: MELISA HAUSER PA-C Pre-OP/Procedure Diagnosis: Abnormal liver function / labs. Liver disease Post-OP/Procedure Diagnosis: same Procedure Performed: CT guided core biopsy Procedural MD: JETT GALLO MD Profiling Machine Operator: Zoran Hauser PA-C Sedation: IV versed and fentanyl Findings: Technically successful biopsy Complications: No significant bleeding EBL: Minimal Specimen(s) Removed: Pathology is pending. Full report to follow. documented in this encounter Plan of Treatment Not on file documented as of this encounter Visit Diagnoses Not on filedocumented in this encounter
== END 2025-03-31 23:59 | disposition home or self-care (01) ==
LOC: RAD 09:58
PROVIDERS: PCP Internal Medicine Adolescent Medicine; Visit Provider Internal Medicine Adolescent Medicine
DX: M16.12 Unilateral primary osteoarthritis, left hip (principal)
CPT/HCPCS: 73502; 73552

== ENCOUNTER 2025-04-10 09:56 | Outpatient (CLI) | payer BC, SELFPAY ==
--- NOTE | 2025-04-10 09:58 | CT_ITS ---
FINAL REPORT TECHNIQUE: Axial CT images of the chest were obtained without contrast. Low-dose protocol was utilized. This study was performed with techniques to keep radiation doses as low as reasonably achievable (ALARA). Individualized dose reduction techniques using automated exposure control or adjustment of mA and/or kV according to the patient's size were employed. CLINICAL HISTORY: SCREENING CURRENT SMOKER 1PPD X30 YEARS FINDINGS: CT CHEST WITHOUT, LOW DOSE SCREENING CTDl vol(mGy): 2.90 DLP (mGy-cm): 96.38 Current smoker 30 pack year history There is no axillary adenopathy. There is no hilar adenopathy. There are a few small scattered mediastinal lymph nodes. The heart size is normal. 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 There is no pericardial or pleural effusion. Lung window images demonstrate mild changes of centrilobular emphysema. No nodules are identified.. Limited images of the upper abdomen demonstrate prior cholecystectomy. IMPRESSION: Lung RADS category 1S. Recommend 12 month follow-up low-dose chest CT per Fleischner criteria. Modifier S: Ectasia of the ascending aorta. Reviewed, Interpreted and Dictated by Naeem Lobo MD Transcribed by Elisabeth Cerrato Authenticated and [facility]
--- OUTSIDE RECORDS SUMMARY | 2025-04-10 09:58 | XMS_ITS | Encounter Summary ---
Author Organization [employer] ([place], [place], [place], [place]) Address [address] [place] [address] Care Team Providers Care Plant Operations Manager Name Role Phone Unavailable Primary Care Provider Unavailabl e Encounter Details Date Type Department Care Team (Late st Contact Info) Description 06/18/2020 Transcribed Document [facility] Radiology [address] [place] [address] Provider, Tyrone Esquivel MD Social [...]
--- OUTSIDE RECORDS SUMMARY | 2025-04-10 09:58 | XMS_ITS | Encounter Summary ---
Author Organization [employer] ([place], [place], [place], [place]) Address [address] [place] [address] Care Team Providers Care Director Of Student Affairs Name Role Phone Unavailable Primary Care Provider Unavailabl e Encounter Details Date Type Department Care Team (Late st Contact Info) Description 06/18/2020 Transcribed Document [facility] Radiology [address] [place] [address] Provider, Tyrone Esquivel MD Social [...] list: All Problems Anxiety / SNOMED CT 37845563 / Confirmed Elevated liver enzymes / SNOMED CT 4425893645 / Confirmed Mononucleosis / SNOMED CT 486064135 / Confirmed Insomnia / SNOMED CT 638301979 / Confirmed, Active Problems (4) Anxiety Elevated [...] EDT Height Source Stated Height Entry Format [place] Height/Length, AMERICAN (ft) 5 ft Height/Length AMERICAN 2 Inch CLINICALHEIGHT 157.48 cm Spring Body Weight 50 kg Weight Source Standing scale Weight Entry Format [place] Weight Slovenian lb 159 lb CLINICALWEIGHT 72.27 kg Body [...] % 32.8 % Lymph # 2.70 K/uL Jerome % 9.2 % Jerome # 0.76 K/uL Eos % 1.7 % [...]
--- OUTSIDE RECORDS SUMMARY | 2025-04-10 09:58 | XMS_ITS | Referral Summary ---
Author Organization [employer] ([place], [place], [place], [place]) Address [address] [place] [address] Care Team Providers Care Poultry Farm Laborer Name Role Phone Unavailable Primary Care Provider [...]
--- OUTSIDE RECORDS SUMMARY | 2025-04-10 09:58 | XMS_ITS | Clinical Summary ---
Author Organization [employer] ([place], [place], [place], [place]) Address [address] [place] [address] Care Team Providers Care Ticket Speculator Name Role Phone Unavailable Primary Care Provider [...]
--- OUTSIDE RECORDS SUMMARY | 2025-04-10 09:58 | XMS_ITS | Encounter Summary ---
Author Organization [employer] ([place], [place], [place], [place]) Address [address] [place] [address] Care Team Providers Care Tub Chucker Name Role Phone Unavailable Primary Care Provider Unavailabl e Encounter Details Date Type Department Care Team (Late st Contact Info) Description 06/18/2020 Transcribed Document [facility] [address] [place] [address] Provider, Tyrone Esquivel MD Social History [...] Connell MD - 06/18/2020 10:31 AM EDT [facility] [address] [place] [address] DINA PETER :1965 Visit Time:06/18/2020 Your [...] you are awake and alert. ??? Take djgm-rqa-ljjcwui and prescription medicines only as told by [...] 05/27/2014 Document Revised: 07/19/2018 Document Reviewed: 11/25/2016 [employer] Patient Education ?? 2020 [employer] Steps to Quit Smoking Smoking tobacco [...] a prescription, and some you can buy zfot-sch-bcsebuy. Some medicines may contain a drug called [...] encourage you. ??? Call a phone quitline (4-000-YXWXNOW), reach out to support groups, or work [...] 06/02/2010 Document Revised: 10/24/2019 Document Reviewed: 10/25/2019 [employer] Patient Education ?? 2020 [employer] Liver Biopsy, Care After These instructions [...] these instructions at home: Medicines ??? Take bagx-xle-yzkhahr and prescription medicines only as told by [...] (urine) clear or pale yellow. ? Take iyre-ijs-enaxmtq or prescription medicines. ? Eat foods that [...] cannot use soap and water, use hand livery car driver. ? Change your bandage as told by [...] 05/15/2009 Document Revised: 08/16/2018 Document Reviewed: 08/16/2018 [employer] Patient Education ?? 2020 [employer]. Emergency Awareness and Preventative Care STROKE is [...] Assistance with quitting is available by contacting 2-762-TTOD-NOW. This is a free resource providing counseling, [...] was given the opportunity to ask questions. Patient/Superintendent Tests Name: Patient/Superintendent Tests Signature: Relationship to Patient: Clinician/Hospital Superintendent Tests Signature: Date: documented in this encounter Plan of Treatment Not on file documented as of this encounter Visit Diagnoses Not on filedocumented in this encounter
--- OUTSIDE RECORDS SUMMARY | 2025-04-10 09:58 | XMS_ITS | Clinical Summary ---
Author Organization [facility] [place] Address [address] [place] [phone] Phone Care Team Providers Care Dial Buffer Name Role Phone Unavailable Primary Care Provider [...] patient's age to complete this topic [place] [id number]
--- OUTSIDE RECORDS SUMMARY | 2025-04-10 09:58 | XMS_ITS | Encounter Summary ---
Author Organization [employer] ([place], [place], [place], [place]) Address [address] [place] [address] Care Team Providers Care Barrel Lathe Operator Outside Name Role Phone Unavailable Primary Care Provider Unavailabl e Encounter Details Date Type Department Care Team (Late st Contact Info) Description 06/18/2020 Transcribed Document [facility] Radiology [address] [place] [address] ProviderTyrone MD Social History Tobacco [...] Note - Tyrone Connell MD - 06/18/2020 12:52 PM EDT Patient: DINA PETER Age: 54 years Sex: Female : 1965 Associated Diagnoses: None Author: MELISA HAUSER PA-C Pre-OP/Procedure Diagnosis: Abnormal liver function / labs. Liver disease Post-OP/Procedure Diagnosis: same Procedure Performed: CT guided core biopsy Procedural MD: JETT GALLO MD Dimethylaniline Sulfator Operator: Zoran Hauser PA-C Sedation: IV versed and fentanyl Findings: Technically successful biopsy Complications: No significant bleeding EBL: Minimal Specimen(s) Removed: Pathology is pending. Full report to follow. documented in this encounter Plan of Treatment Not on file documented as of this encounter Visit Diagnoses Not on filedocumented in this encounter
--- OUTSIDE RECORDS SUMMARY | 2025-04-10 09:58 | XMS_ITS | Encounter Summary ---
Author Organization [facility] ([place], [place], [place], [place]) Address [address] [place] [address] Care Team Providers Care Emergency Services Professional Name Role Phone Unavailable Primary Care Provider Unavailabl e Encounter Details Date Type Department Care Team (Late st Contact Info) Description 06/18/2020 Transcribed Document [facility] Radiology [address] [place] [address] Provider, Tyrone Esquivel MD Social [...] you are awake and alert. ??? Take ucrr-iej-ukrcadz and prescription medicines only as told by [...] 05/27/2014 Document Revised: 07/19/2018 Document Reviewed: 11/25/2016 [employer] Patient Education ? 2020 [employer]. Steps to Quit Smoking Smoking tobacco [...] a prescription, and some you can buy afhy-xaz-iooyygd. Some medicines may contain a drug called [...] encourage you. ??? Call a phone quitline (0-731-KEVINOW), reach out to support groups, or work [...] 06/02/2010 Document Revised: 10/24/2019 Document Reviewed: 10/25/2019 [employer] Patient Education ? 2020 [employer]. Liver Biopsy, Care After These instructions give [...] these instructions at home: Medicines ??? Take oojo-mgv-huimfaa and prescription medicines only as told by [...] (urine) clear or pale yellow. ? Take axwn-dgd-qvvghwl or prescription medicines. ? Eat foods that [...] cannot use soap and water, use hand high school vice principal. ? Change your bandage as told by [...] 05/15/2009 Document Revised: 08/16/2018 Document Reviewed: 08/16/2018 [employer] Patient Education ? 2020 [employer]. documented in this encounter Plan of Treatment Not on file documented as of this encounter Visit Diagnoses Not on filedocumented in this encounter
--- OUTSIDE RECORDS SUMMARY | 2025-04-10 09:58 | XMS_ITS | Encounter Summary ---
Author Organization [employer] ([place], [place], [place]) Address [address] [place] [address] Care Team Providers Care Pot Filler Name Role Phone Unavailable Primary Care Provider Unavailabl e Encounter Details Date Type Department Care Team (Late st Contact Info) Description 06/18/[address] [facility] Radiology [address] [place] [address] ProviderTyrone MD Social History Tobacco [...] N/A FLORECITA VALDEZ - 06/18/2020 9:31 EDT Electronically signed by Tyrone Daley Conversion Development And Planning Engineer Cerner at 01/10/2023 12:29 PM CDT documented in this encounter Plan of Treatment Not on file documented as of this encounter Visit Diagnoses Not on filedocumented in this encounter
--- OUTSIDE RECORDS SUMMARY | 2025-04-10 09:58 | XMS_ITS | Encounter Summary ---
Author Organization [employer] ([place], [place], [place], [place]) Address [address] [place] [address] Care Team Providers Care Supervisor Production Name Role Phone Unavailable Primary Care Provider Unavailabl e Encounter Details Date Type Department Care Team (Late st Contact Info) Description 06/18/2020 Transcribed Document [facility] Radiology [address] [place] [address] Provider, Tyrone Esquivel MD Social [...]
--- OUTSIDE RECORDS SUMMARY | 2025-04-10 09:58 | XMS_ITS | Encounter Summary ---
Author Organization [employer] ([place], [place], [place], [place]) Address [address] [place] [address] Care Team Providers Care Offset Press Operator Apprentice Name Role Phone Unavailable Primary Care Provider Unavailabl e Encounter Details Date Type Department Care Team (Late st Contact Info) Description 06/18/2020 Transcribed Document [facility] Radiology [address] [place] [address] Provider, Tyrone Esquivel MD Social [...] Source : Stated Height Entry Format : [place] Height, Feet : 5 ft(Converted to: 152 cm, 60 Inch) Height, Inches : 2 Inch(Converted to: 0 ft 2 Inch, 5.08 cm) Clinical Height : 157.48 cm Weight Source : Standing scale Weight Entry Format : [place] Clinical Dosing Weight : 72.27 kg Weight, Pounds : 159 lb Body Surface Area (BSA) : 1.74 m2 Body Mass Index : 29.1 kg/m2 (HI) [place] Body Weight : 50 kg FLORECITA VALDEZ [...] Directive information FLORECITA VALDEZ 06/18/2020 9:25 EDT [place] Suicide Severity Rating Scale (C-SSRS) CSSRS Past [...] #2 Relationship : na Primary Language : Northern Irish Preferred Communication Mode : Verbal Communication Barrier : None Equities Trader Needed : No JOSÉ MIGUEL FLORECITA 06/18/2020 [...]
--- OUTSIDE RECORDS SUMMARY | 2025-04-10 09:58 | XMS_ITS | Patient Health Record ---
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
--- OUTSIDE RECORDS SUMMARY | 2025-04-10 09:58 | XMS_ITS | Clinical Summary ---
[facility] Address [address] [place] [id number] Care Team Providers Care Hand Pattern Marker Name Role Phone Provider, No Known Primary [...] if needed. Diagnosis- Abnormal Mammogram. Reading Radiologist- KETURAH HERNDON Releasing Radiologist- KETURAH HERNDON Released Date Time- 11/04/15 0947 Concession Cashier- Alexi Procedure Note Keturah Herndon MD - [...] to Health Maintenance Insurance [employer] Care Teams Hand Pattern Marker Relationship Specialty Start Date End Date Provider, No Known [facility] [place] [address] PCP - General 04/01/15
--- OUTSIDE RECORDS SUMMARY | 2025-04-10 09:59 | XMS_ITS | Clinical Summary ---
Author Organization [facility] [place] [address] Care Team Providers Care Refinery Operator Visbreaking Name Role Phone Rick Salcedo MD Primary Care Provider [phone] Allergies Active Allergy Reactions Criticality Noted Date [...] morning. 4 Active Lancets (OneTouch Delica Plus Vljegh10Z) misc 4 Active losartan-hydroCH LOROthiazide (Hyzaar) 50-12.5 [...] Years (1 of 1 - PCV) 2015 [id number] Vaccine (3 - Moderna risk series) 05/19/2021 [...] topic Insurance Jeramy JACKSON [place] [id number] CIGNA Care Teams Refinery Operator Visbreaking Relationship Specialty Start Date End Date Rick Salcedo MD [address] [place] [id number] PCP - General 12/31/20
--- OUTSIDE RECORDS SUMMARY | 2025-04-10 09:59 | XMS_ITS | Encounter Summary ---
Author Organization [facility] Address [address] [place] [address] Care Team Providers Care Associate Sales Representative Name Role Phone Rick Salcedo MD Primary Care Provider [phone] Reason for Referral * Consultation (Routine) - Closed Specialty Diagnoses / Procedures Referred By Contac t Referred To Contact Pulmonary Disease / Pulmonology Diagnoses Subacute cough Rick Salcedo MD [address] [place] [address] [place] [address] [facility] [address] [place] [address] Phone: tel: fax: Referral ID Status Reason Start Date Expiration Date V isits Requested Visits Authorized [id number] Closed Specialty Services Required 10/26/2023 04/26/2025 1 1 Encounter Details Date Type Department Care Team (Late st Contact Info) Description 10/26/2023 [facility] [address] [place] [address] Rick Salcedo MD [address] [place], [place] [address]y [address] [place] [address] Subacute cough (Primary Dx) Social [...] Primary documented in this encounter Care Teams Associate Sales Representative Relationship Specialty Start Date End Date Rick Salcedo MD [address] [place] [id number] PCP - General 12/31/20 documented as of this encounter
== END 2025-04-10 23:59 | disposition home or self-care (01) ==
LOC: RAD 09:56
PROVIDERS: PCP Internal Medicine Adolescent Medicine; Visit Provider Internal Medicine Adolescent Medicine
DX: Z00.00 Encounter for general adult medical examination without abnormal findings (principal); I77.810 Thoracic aortic ectasia; F17.210 Nicotine dependence, cigarettes, uncomplicated
CPT/HCPCS: 71271

== ENCOUNTER 2025-04-28 06:44 | Outpatient (CLI) | payer BC, SELFPAY ==
--- NOTE | 2025-04-28 06:46 | MR_ITS ---
FINAL REPORT TECHNIQUE: Multiplanar and multisequence imaging was obtained before and after the intravenous injection of gadolinium contrast. CLINICAL HISTORY: PRIMARY BILIARY CHOLANGITIS. autoimmune hepatitis. tenderness in abdomen. FINDINGS: There is a slightly nodular contour to the liver without focal hepatic lesion. The gallbladder is absent. No common duct filling defect is identified. The spleen is normal in size and signal intensity. The adrenal glands and pancreas are without acute abnormality. There is no hydronephrosis or renal mass. The kidneys are unremarkable. Limited evaluation of the GI tract is without acute abnormality. There is no ascites. There are mildly prominent retroperitoneal lymph nodes in the upper abdomen, likely reactive. No liver lesions are seen on the postcontrast images. There is no intrahepatic biliary ductal dilatation. The portal vein and hepatic veins are normal. There is a small T1 hypointense lesion of the spleen which was not well-seen on the precontrast images, likely benign. IMPRESSION: Nodular contour to the liver suggesting cirrhosis. No acute abnormality. No enhancing liver lesions. Reviewed, Interpreted and Dictated by Ginette Tejeda MD Transcribed by Ysabel Rodas Authenticated and [facility]
--- OUTSIDE RECORDS SUMMARY | 2025-04-28 06:46 | XMS_ITS | Patient Health Record ---
Author Organization [facility] Address [address] [facility] [address] [place] [address] Care Team Providers Care Film Loader Name Role Phone Rina Obrien Unavailable [phone] Reason For Referral No Information Problems Problem Type SNOMED Code ICD Code Onset Dates Problem Status W/U Status Risk Notes Problem Aggressive ex-smoker (143711481) Aggressive ex-smoker (Z87.891) 08/17/20 Active confirmed TOBACCO USE, QUIT Problem Adult health examination (551236910) Adult general medical exam (Z00.00) 08/17/20 09 Active confirmed ANNUAL EXAM Problem Anogenital warts (726327542) 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
--- OUTSIDE RECORDS SUMMARY | 2025-04-28 06:46 | XMS_ITS | Clinical Summary ---
[facility] Address [address] [place] [id number] Care Team Providers Care Emery Wheel Worker Name Role Phone Provider, No Known Primary [...] MAMMOGRAM 11/03/2017 11/04/2015 COVID-19 Vaccine ( season) 2025 INFLUENZA VACCINE 05/20/2025 Procedures Procedure Name Priority [...] KETURAH HERNDON Released Date Time- 11/04/15 0947 Adjuster Arbitrator- Alexi Procedure Note Keturah Herndon MD - [...] to Health Maintenance Insurance [employer] Care Teams Emery Wheel Worker Relationship Specialty Start Date End Date Provider, No Known [facility] [id number] PCP - General 04/01/15
[2025-04-28] MEDS: SODIUM CHLORIDE 0.9% 10ML SYR (RAD ONLY) 10 ML IV (08:12)
[2025-04-28] MEDS: GADOTERIDOL INJ 20ML SYRINGE 14 ML IV (08:12)
[2025-04-28] MEDS: 0.9 % SODIUM CHLORIDE 50 ML VIAL 20 ML IV (08:12)
== END 2025-04-28 23:59 | disposition home or self-care (01) ==
LOC: RAD 06:44
PROVIDERS: PCP Internal Medicine Adolescent Medicine; Visit Provider Internal Medicine Gastroenterology
DX: K74.3 Primary biliary cirrhosis (principal); K75.4 Autoimmune hepatitis; R93.2 Abnormal findings on diagnostic imaging of liver and biliary tract
CPT/HCPCS: 74183; 76376; A9576

== ENCOUNTER 2025-08-11 12:58 | Outpatient (CLI) | payer BC, SELFPAY ==
--- OUTSIDE RECORDS SUMMARY | 2025-07-31 07:08 | XMS_ITS | Encounter Summary ---
Author Organization Healthcare Address [address] [place] [address] Care Team Providers Care Media Professional Name Role Phone Rick Salcedo MD Primary Care Provider [phone] Reason for Referral * Imaging (Routine) - Closed Specialty Diagnoses / Procedures Referred By Luli camp Referred To Contact Radiology Diagnoses Chronic left hip pain Trochanteric bursitis of left hip Procedures MR Hip Left w and wo IV Contrast Marlene Lucia PA [address] [place] [id number] Phone: tel: fax: Referral ID Status Reason Start Date Expiration Date Visits Re quested Visits Authorized [id number] Closed 04/16/2025 10/16/2026 1 1 Reason for Visit * Imaging (Routine) - Closed Specialty Diagnoses / Procedures Referred By Contac zoë Referred To Contact Radiology Diagnoses Chronic left hip pain Trochanteric bursitis of left hip Procedures MR Hip Left w and wo IV Contrast Marlene Lucia PA [address] [place] [address] Phone: tel: fax: Referral ID Status Reason Start Date Expiration Date Visits Re quested Visits Authorized [id number] Closed 04/16/2025 10/16/2026 1 1 Encounter Details Date Type Department Care Team (Latest Contact Info) Description 07/31/2025 7:08 AM EST - 07/31/2025 11:59 PM EST Hospital Encounter [facility] [address] [place] [address] Chronic left hip pain; Trochanteric bursitis of left hip Discharge Disposition: Home or Self Care Social History Tobacco Use Types Packs/Day Years Used Date Smoking Tobacco: Every Day Cigarettes 1 31 Started: 08/20/1994 Passive Smoke Exposure: Never Smokeless Tobacco: Never Comments:Smoking for 20 year s Alcohol Use Standard Drinks/Week Comments No 0 (1 standard drink = 0.6 oz pur e alcohol) PHQ-2 Answer Date Recorded Patient Health Questionnaire-2 Score 0 12/07/2023 Comments No Sex and Gender Information Value Date Recorded Sex Assigned at Not on file Legal Sex Female 6:27 PM EDT Gender Identity Not on file Sexual Orientation Not on file documented as of this encounter Medications at Time of Discharge albuterol 108 (90 Base) MCG/ACT inhalerIndications :Subacute cough,ILD (interstitial lung disease) ([facility]) Inhale 2 puffs 4 (four) times a day. 1 each 3 12/07/2023 alpha tocopherol (Vitamin E) 400 units capsule Take 1 capsule (400 Units) by mouth 1 (one) time each day. Take 2 tablets daily amitriptyline (Elavil) 25 MG tablet 09/12/2023 aspirin 81 MG EC tablet Take 1 tablet (81 mg) by mouth 1 (one) time each day. Blood Glucose Monitoring Suppl (ONE TOUCH ULTRA 2) w/Device kit device kit 11/13/2023 budesonide EC (Entocort EC) 3 MG 24 hr capsule TAKE 3 CAPSULES BY MOUTH IN THE MORNING 11/10/2023 cholecalciferol (Vitamin D-3) 50 MCG (2000 UT) capsule Take 1 capsule (2,000 Units) by mouth. clonazePAM (KlonoPIN) 0.5 MG tablet 11/06/2023 isosorbide mononitrate ER (Imdur) 30 MG 24 hr tablet Take 1 tablet (30 mg) by mouth 1 (one) time each day in the morning. 09/26/2023 Lancets (OneTouch Delica Plus [id number]) [facility] 11/13/2023 lidocaine (Xylocaine) 5 % ointmentIndication s:Chronic left hip pain,Trochanteric bursitis of left hip Apply twice daily to left hip 50 g 1 04/16/2025 losartan-hydroCHLO ROthiazide (Hyzaar) 50-12.5 MG tablet Take 1 tablet by mouth 1 (one) time each day. 09/24/2023 metoprolol succinate XL (Toprol-XL) 25 MG 24 hr tablet Take 1 tablet (25 mg) by mouth 1 (one) time each day. 09/24/2023 mycophenolate (Cellcept) 500 MG tablet TAKE 2 TABLETS BY MOUTH ONCE DAILY IN THE MORNING 09/02/2023 nicotine polacrilex (Nicorette) 4 MG gum Chew 1 each (4 mg) if needed for smoking cessation. 100 each 12/07/2023 OneTouch Ultra test strip 11/13/2023 Repatha SureClick 140 MG/ML solution auto-injector autoinjector 04/07/2025 semaglutide (Rybelsus) 7 MG tablet Take 7 mg by mouth. SITagliptin-metFOR MIN (Janumet) 50-1000 MG tablet Take 1 tablet by mouth 2 (two) times a day with meals. SITagliptin-metFOR MIN (Janumet) 50-1000 MG tablet Take 1 tablet by mouth 2 times a day with meals. ursodiol (Actigall) 300 MG capsule TAKE 2 CAPSULES BY MOUTH TWICE DAILY DIRECTED 10/16/2023 documented as of this encounter Miscellaneous Notes * [facility] - Jessenia Rizzo - 07/31/2025 7:48 AM EST Images from the original note were not included. 1639 Caring for Yourself after Contrast Imaging If you had ORAL contrast: ? You can go back to your normal diet and activities as tolerated. ? Drink plenty of fluids, unless told otherwise. If you had IV contrast: ? You can go back to your normal diet and activities as tolerated. ? Drink plenty of fluids, unless told otherwise. ? Leave a bandage on the site for 30 minutes (where the IV was inserted or blood was drawn). If you had Intravesical (bladder) contrast: ? Return to normal diet and activity. What you need to know about delayed reaction to IV contrast What is IV Contrast? ? Contrast is a dye that is put into your body through an IV. ? It is used for imaging scans such as CT scans and MRIs. ? The contrast makes blood vessels, organs and other parts of your body show up better on the scan. What do I need to do after IV contrast? ? Drink lots of fluids. This will help flush the contrast out of your system. ? Drink 2-3 extra glasses or bottles of water within 4 hours of your scan. What is a contrast reaction? ? A contrast reaction is a bad side effect from the contrast dye. ? It is rare but it does happen. ? They can be mild - such as sneezing, itching, or hives. ? They can be severe - such as trouble breathing, throat swelling, and irregular heart beat. When do these reactions happen? ? They often happen right after the contrast is injected. ? Some happen hours after going home. Go to the nearest Emergency Department right away if you have any of these symptoms after you leavethe clinic or hospital. ? Sneezing ? Itching in your mouth, throat, eyes, ears, or skin ? Rash or hives ? Throwing up or stomach sickness ? High heart rate or ?racing? of your heart ? Feeling dizzy or woozy ? Feeling short of breath or like you can?t take a deep breath ? Feeling very anxious for no other reason It is very important that these reactions be treated. Tell the doctor or nurse that you are having a reaction to IV contrast dye. Do not ignore any sign of a reaction! All reactions must be assessed by a doctor. Call 911 if you are alone and your reaction is more than mild sneezing or itching. If you have a mild reaction, call to speak with a Radiologist, explain that you havehad a contrast reaction, as this needs to be added to your medical record. documented in this encounter Plan of Treatment Not on file documented as of this encounter Procedures Procedure Name Priority Date/Time Associated Diagnosis Comments MR HIP LEFT W AND WO IV CONTRAST Routine 07/31/2025 7:44 AM EST Chronic left hip pain Trochanteric bursitis of left hip documented in this encounter Results * MR Hip Left w and wo IV Contrast (07/31/2025 7:44 AM EST) Anatomical Region Laterality Modality Hip Left Magnetic Resonan ce Impressions 07/31/2025 8:33 AM EST There is a cystic lesion in the left acetabulum and iliac, likely degenerative. Moderate osteoarthritis in the left hip. High-grade chronic tear of the gluteus minimus tendon. Mild to moderate tendinopathy of the gluteus medius and hamstring. Mild trochanteric bursitis. CRITICAL RESULT: No. COMMUNICATION: Per this written report. Drafted by Kanu Bosch MD on 07/31/2025 8:19 AM Final report signed by Kanu Bosch MD on 07/31/2025 8:33 AM Narrative 07/31/2025 8:33 AM EST CLINICAL INDICATION: Hip pain, chronic, tendon/bursal abnormality suspected, xray done TECHNIQUE: The following sequences were obtained of the entire pelvis: coronal STIR, axial T1. Multiplanar images of the left hip were obtained without contrast. Additional multiplanar images were obtained after injection of 7.3 mL of Gadavist. COMPARISON: None. FINDINGS: Tumor protocol was performed, not optimal for assessment of internal derangements. Bone and Bone Marrow: There is no fracture, AVN. There is a cystic lesion in the anterior superior acetabulum and inferior iliac bone, measuring 5.7 cm. Moderate osteoarthritis in the left hip, with marginal osteophytes, moderate to high- grade cartilage loss, most pronounced anterosuperiorly and foci of bone marrow edema. There is heterogeneous bone marrow signal changes, without obvious features, most consistent with bone marrow reconversion. Partially imaged mild to moderate degenerative changes in the right hip joint, pubic symphysis and sacroiliac joints. Soft Tissues: There is no evidence of muscle strain. High-grade chronic tear of the gluteus minimus tendon. Mild to moderate tendinopathy of the gluteus medius and hamstring. Moderate fatty atrophy of the gluteus minimus. Mild trochanteric bursitis. Small joint effusion the hip. Procedure Note Kanu House MD - 07/31/2025 CLINICAL INDICATION: Hip pain, chronic, tendon/bursal abnormality suspected, xray done TECHNIQUE: The following sequences were obtained of the entire pelvis: coronal STIR,axial T1. Multiplanar images of the left hip were obtained withoutcontrast. Additional multiplanar images were obtained after injection of7.3 mL of Gadavist. COMPARISON: None. FINDINGS: Tumor protocol was performed, not optimal for assessment of internalderangements. Bone and Bone Marrow: There is no fracture, AVN. There is a cystic lesionin the anterior superior acetabulum and inferior iliac bone, measuring 5.7cm. Moderate osteoarthritis in the left hip, with marginal osteophytes,moderate to high-grade cartilage loss, most pronounced anterosuperiorlyand foci of bone marrow edema. There is heterogeneous bone marrow signalchanges, without obvious features, most consistent with bone marrowreconversion. Partially imaged mild to moderate degenerative changes inthe right hip joint, pubic symphysis and sacroiliac joints. Soft Tissues: There is no evidence of muscle strain. High-grade chronictear of the gluteus minimus tendon. Mild to moderate tendinopathy of thegluteus medius and hamstring. Moderate fatty atrophy of the gluteusminimus. Mild trochanteric bursitis. Small joint effusion the hip. IMPRESSION: There is a cystic lesion in the left acetabulum and iliac, likelydegenerative. Moderate osteoarthritis in the left hip. High-grade chronic tear of the gluteus minimus tendon. Mild to moderate tendinopathy of the gluteus medius and hamstring. Mild trochanteric bursitis. CRITICAL RESULT: No. COMMUNICATION: Per this written report. Drafted by Kanu Bosch MD on 07/31/2025 8:19 AM Final report signed by Kanu Bosch MD on 58:33 AM Marlene RAMÍREZ IM[facility] MRI PROCEDURES Final Resu lt documented in this encounter Visit Diagnoses Diagnosis Chronic left hip pain Trochanteric bursitis of left hip documented in this encounter Administered Medications Inactive Administered Medications - up to 3 most recent administrations Medication Order MAR Action Action Date Dose Rate Site gadobutrol (Gadavist) injection 7.3 mL 7.3 mL (rounded from 7.26 mL = 0.1 mL/kg 72.6 kg), Intravenous, Once in imaging, 1 dose, Starting on Sun07/31/25 at 0717, Until Sun07/31/25 at 0747, Routine, Imaging Protocol Orders Given 07/31/2025 7:47 AM EST 7.3 mL Left Antecubital documented in this encounter Additional Health Concerns Assessment Noted Time A fall risk assessment has been complete d for the patient 04/16/2025 2:16 PM EDT A Body Mass Index follow-up plan has been documented for the patient 04/16/2025 4:11 PM EDT documented as of this encounter Care Teams Media Professional Relationship Specialty Start Date End Date Rick Salcedo MD [facility] [id number] PCP - General 12/31/20 documented as of this encounter
--- OUTSIDE RECORDS SUMMARY | 2025-08-11 13:00 | XMS_ITS | Encounter Summary ---
Author Organization Healthcare Address [address] [place] [address] Care Team Providers Care Chief Dispatcher Name Role Phone Rick Salcedo MD Primary Care Provider [phone] Encounter Details Date Type Department Care Team ([facility] st Contact Info) Description 03/31/2025 Orders Only External Location [address] [place] [id number] Provider, External Social History Tobacco Use Types Packs/Day Years [...] as of this encounter Plan of Treatment Not on file documented as of this encounter Procedures Procedure Name Priority Date/Time Associated Diagnosis Comments XR OUTSIDE IMAGES 03/31/2025 10:06 AM EDT documented in this encounter Results * XR OUTSIDE IMAGES (03/31/2025 10:06 AM EDT) Anatomical Region Laterality Modality Radiographic Shawna ging 03/31/2025 10:0 6 AM EDT us External Provider IMG XR PROCEDURES Final Result documented in this encounter Visit Diagnoses Not on filedocumented in this encounter Additional Health Concerns Assessment Noted Time A fall risk assessment has been complete d for the patient 12/07/2023 8:56 AM EDT A Body Mass Index follow-up plan has been documented for the patient 12/07/2023 10:32 AM EDT documented as of this encounter Care Teams Chief Dispatcher Relationship Specialty Start Date End Date Rick Salcedo MD [facility] 2A [id number] PCP - General 12/31/20 documented as of this encounter
--- OUTSIDE RECORDS SUMMARY | 2025-08-11 13:00 | XMS_ITS | Patient Health Record ---
Author Organization [facility] Address [address] [facility] [address] [place] [address] Care Team Providers Care Back Shoe Worker Name Role Phone Rina Obrien Unavailable [phone] Reason For Referral No Information Problems Problem Type SNOMED Code ICD Code Onset Dates Problem Status W/U Status Risk Notes Problem Aggressive ex-smoker (494589903) Aggressive ex-smoker (Z87.891) 08/17/20 Active confirmed TOBACCO USE, QUIT Problem Adult health examination (795330269) Adult general medical exam (Z00.00) 08/17/20 09 Active confirmed ANNUAL EXAM Problem 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
--- OUTSIDE RECORDS SUMMARY | 2025-08-11 13:00 | XMS_ITS | Encounter Summary ---
Author Organization [employer] ([place], [place], [place], [place], [place]) Address [address] [place] [address] Care Team Providers Care Collections Officer Name Role Phone Unavailable Primary Care Provider Unavailabl e Encounter Details Date Type Department Care Team (Late st Contact Info) Description 06/18/2020 Transcribed Document [facility] Radiology [address] [place] [address] Provider, Tyrone Esquivel MD Social [...] you are awake and alert. ??? Take epsf-xti-roiicqb and prescription medicines only as told by [...] 05/27/2014 Document Revised: 07/19/2018 Document Reviewed: 11/25/2016 [employer] Patient Education ? 2020 [employer] Steps to Quit Smoking Smoking tobacco [...] a prescription, and some you can buy [id number]-nxwnucv. Some medicines may contain a drug called [...] encourage you. ??? Call a phone quitline (7-101-VAIYNOW), reach out to support groups, or work [...] 06/02/2010 Document Revised: 10/24/2019 Document Reviewed: 10/25/2019 [employer] Patient Education ? 2020 [employer]. Liver Biopsy, Care After These instructions give [...] these instructions at home: Medicines ??? Take qwni-hks-zqtfqop and prescription medicines only as told by [...] (urine) clear or pale yellow. ? Take bsbs-isz-gfjhwkx or prescription medicines. ? Eat foods that [...] cannot use soap and water, use hand telecommunications network planner. ? Change your bandage as told by [...] 05/15/2009 Document Revised: 08/16/2018 Document Reviewed: 08/16/2018 [employer] Patient Education ? 2020 [employer]. documented in this encounter Plan of Treatment Not on file documented as of this encounter Visit Diagnoses Not on filedocumented in this encounter
--- OUTSIDE RECORDS SUMMARY | 2025-08-11 13:00 | XMS_ITS | Clinical Summary ---
[facility] Address [address] [place] [id number] Care Team Providers Care Warper Tender Name Role Phone Provider, No Known Primary [...] (1 of 2) 2015 MAMMOGRAM 11/03/2017 11/04/2015 INFLUENZA VACCINE 03/20/2025 Procedures Procedure Name Priority Date/Time Associated Diagnosis [...] KETURAH HERNDON Released Date Time- 11/04/15 0947 Barrel Inspector Tight- Alexi Procedure Note Keturah Herndon MD - [...] Diagnosis- Abnormal Mammogram. Reading RadiologistPrerna HERNDON Releasing Radiologist- KETURAH HERNDON Released Date Time- 11/04/15 0947 Barrel Inspector TightPrerna Truong Kirt Nice MD IMG MAMMOGRAPHY ORDERABLES Fin al Result from Last 3 Months or Most Recently Relevant to Health Maintenance Insurance [employer] Care Teams Warper Tender Relationship Specialty Start Date End Date Provider, No Known [place] [address] PCP - General 04/01/15
--- OUTSIDE RECORDS SUMMARY | 2025-08-11 13:00 | XMS_ITS | Encounter Summary ---
Author Organization [employer] ([place], [place], [place], [place], [place]) Address [address] [place] [address] Care Team Providers Care Senior Qc Technician Name Role Phone Unavailable Primary Care Provider Unavailabl e Encounter Details Date Type Department Care Team (Late st Contact Info) Description 06/18/2020 Transcribed Document [facility] Radiology [address] [place] [address] ProviderTyrone MD Social History Tobacco [...]
--- OUTSIDE RECORDS SUMMARY | 2025-08-11 13:00 | XMS_ITS | Clinical Summary ---
Author Organization [facility] Address [address] [place] [phone] Phone Care Team Providers Care Arm Maker Name Role Phone Unavailable Primary Care [...] Screening 1983 DTaP/TDaP/Td (1 - Tdap) 1984 Pneumococcal Vaccine 50+ (1 of 2 - PCV) 1984 Zoster (1 of 2) 1984 Cervical Cancer Screening 1986 Pap Smear 1986 HPV/Pap Cotest 1995 Cologuard 2010 Colon Cancer Screening 2010 Colonoscopy 2010 FIT 2010 Sigmoidoscopy 2010 Virtual Colonography 2010 RSV or 60+ (1 - Ris k 50-74 years 1-dose series) 2015 Breast Cancer Screening 11/03/2017 11/04/2015 COVID-19 Vaccine (3 - Modern a risk series) 05/19/2021 04/21/2021, 03/24/2021 Influenza Vaccine (#1) 2025 , 05/01/2017 Hepatitis B Vaccine Aged Out No longe r eligible based on patient's age to complete this topic Meningococcal B Vaccine Aged Out No l onger eligible based on patient's age to complete this topic Insurance CIG
--- OUTSIDE RECORDS SUMMARY | 2025-08-11 13:00 | XMS_ITS | Encounter Summary ---
Author Organization [employer] ([place], [place], [place], [place], [place]) Address [address] [place] [address] Care Team Providers Care Physical Anthropologist Name Role Phone Unavailable Primary Care Provider Unavailabl e Encounter Details Date Type Department Care Team (Late st Contact Info) Description 06/18/2020 Transcribed Document [facility] Radiology [address] [place] [address] Provider, Tyrone Esquivel MD Social [...]
--- OUTSIDE RECORDS SUMMARY | 2025-08-11 13:00 | XMS_ITS | Encounter Summary ---
Author Organization [employer] ([place], [place], [place], [place], [place]) Address [address] [place] [address] Care Team Providers Care Computer Hardware Developer Name Role Phone Unavailable Primary Care Provider Unavailabl e Encounter Details Date Type Department Care Team (Late st Contact Info) Description 06/18/2020 Transcribed Document [facility] Radiology [address] [place] [address] ProviderTyrone MD Social History Tobacco [...] core biopsy Procedural MD: JETT GALLO MD Parts Clerk: Zoran Hauser PA-C Sedation: IV versed and fentanyl Findings: Technically successful biopsy Complications: No significant bleeding EBL: Minimal Specimen(s) Removed: Pathology is pending. Full report to follow. documented in this encounter Plan of Treatment Not on file documented as of this encounter Visit Diagnoses Not on filedocumented in this encounter
--- OUTSIDE RECORDS SUMMARY | 2025-08-11 13:00 | XMS_ITS | Clinical Summary ---
Author Organization [employer] ([place], [place], [place], [place], [place]) Address [address] [place] [address] Care Team Providers Care Concrete Mixer Operator Name Role Phone Unavailable Primary Care Provider [...]
--- OUTSIDE RECORDS SUMMARY | 2025-08-11 13:00 | XMS_ITS | Encounter Summary ---
Author Organization [employer] ([place], [place], [place], [place], [place]) Address [address] [place] [address] Care Team Providers Care Machine Bookkeeper Name Role Phone Unavailable Primary Care Provider Unavailabl e Encounter Details Date Type Department Care Team (Late st Contact Info) Description 06/18/2020 Transcribed Document [facility] Radiology [address] [place] [address] Provider, Tyrone Esquivel MD Social [...] Connell MD - 06/18/2020 10:31 AM EDT [facility] [address] [place] [address] DINA PETER :1965 Visit Time:06/18/2020 Your [...] you are awake and alert. ??? Take qnwf-trf-rutibij and prescription medicines only as told by [...] 05/27/2014 Document Revised: 07/19/2018 Document Reviewed: 11/25/2016 [employer] Patient Education ?? 2020 [employer] Steps to Quit Smoking Smoking tobacco [...] a prescription, and some you can buy aqbq-klq-jdgjzmh. Some medicines may contain a drug called [...] encourage you. ??? Call a phone quitline (0-969-FIZENOW), reach out to support groups, or work [...] 06/02/2010 Document Revised: 10/24/2019 Document Reviewed: 10/25/2019 [employer] Patient Education ?? 2020 [employer] Liver Biopsy, Care After These instructions [...] these instructions at home: Medicines ??? Take krah-lfy-dizzyav and prescription medicines only as told by [...] (urine) clear or pale yellow. ? Take drkd-zxw-lusjgzm or prescription medicines. ? Eat foods that [...] cannot use soap and water, use hand pit boss. ? Change your bandage as told by [...] 05/15/2009 Document Revised: 08/16/2018 Document Reviewed: 08/16/2018 [employer] Patient Education ?? 2020 [employer]. Emergency Awareness and Preventative Care STROKE is [...] Assistance with quitting is available by contacting 4-778-VHOC-NOW. This is a free resource providing counseling, [...] was given the opportunity to ask questions. Patient/Retail Maintenance Technician Name: Patient/Retail Maintenance Technician Signature: Relationship to Patient: Clinician/Hospital Retail Maintenance Technician Signature: Date: documented in this encounter Plan of Treatment Not on file documented as of this encounter Visit Diagnoses Not on filedocumented in this encounter
--- OUTSIDE RECORDS SUMMARY | 2025-08-11 13:00 | XMS_ITS | Referral Summary ---
Author Organization [employer] ([place], [place], [place], [place], [place]) Address [address] [place] [address] Care Team Providers Care Network Architect Name Role Phone Unavailable Primary Care Provider [...]
--- OUTSIDE RECORDS SUMMARY | 2025-08-11 13:01 | XMS_ITS | Encounter Summary ---
Author Organization [employer] ([place], [place], [place], [place], [place]) Address [address] [place] [address] Care Team Providers Care Manager Of Training Name Role Phone Unavailable Primary Care Provider Unavailabl e Encounter Details Date Type Department Care Team (Late st Contact Info) Description 06/18/2020 Transcribed Document [facility] Radiology [address] [place] [address] Provider, Tyrone Esquivel MD Social [...] Source : Stated Height Entry Format : [place] Height, Feet : 5 ft(Converted to: 152 cm, 60 Inch) Height, Inches : 2 Inch(Converted to: 0 ft 2 Inch, 5.08 cm) Clinical Height : 157.48 cm Weight Source : Standing scale Weight Entry Format : [place] Clinical Dosing Weight : 72.27 kg Weight, Pounds : 159 lb Body Surface Area (BSA) : 1.74 m2 Body Mass Index : 29.1 kg/m2 (HI) [place] Body Weight : 50 kg FLORECITA VADLEZ 06/18/2020 9:25 EDT Health Histories Smoking Status [...] Directive information FLORECITA VALDEZ 06/18/2020 9:25 EDT [place] Suicide Severity Rating Scale (C-SSRS) CSSRS Past [...] : No Emergency Contact #1 : avery garcia Emergency Contact #1 Emergency Contact #1 Relationship : daughter Emergency Contact #2 : johnathan Emergency Contact #2 Phone Number : na Emergency Contact #2 Relationship : na Primary Language : Estonian Preferred Communication Mode : Verbal Communication Barrier : None Dye Expert Needed : No JOSÉ MIGUEL FLORECITA Graff 06/18/2020 9:25 EDT Venu Scale Venu Sensory [...]
--- OUTSIDE RECORDS SUMMARY | 2025-08-11 13:01 | XMS_ITS | Encounter Summary ---
Author Organization Healthcare Address [address] [place] [address] Care Team Providers Care Sample Washer Name Role Phone Rick Salcedo MD Primary Care Provider [phone] Reason for Referral * Consultation (Routine) - Closed Specialty Diagnoses / Procedures Referred By Contac t Referred To Contact Pulmonary Disease / Pulmonology Diagnoses Subacute cough Rick Salcedo MD [facility] [address] [id number] fax: Referral ID Status Reason Start Date Expiration Date V isits Requested Visits Authorized [id number] Closed Specialty Services Required 10/26/2023 04/26/2025 1 1 Encounter Details Date Type Department Care Team (Late st Contact Info) Description 10/26/2023 Community Orders Community Practice [address] [place] [address] [place] [id number] Subacute cough (Primary Dx) Social History [...] Primary documented in this encounter Care Teams Sample Washer Relationship Specialty Start Date End Date Rick Salcedo MD [facility] [address] PCP - General 12/31/20 documented as of this encounter
--- OUTSIDE RECORDS SUMMARY | 2025-08-11 13:01 | XMS_ITS | Encounter Summary ---
Author Organization Healthcare Address [address] [place] [address] Care Team Providers Care Clothespin Drier Operator Name Role Phone Rick Salcedo MD Primary Care Provider [phone] Encounter Details Date Type Department Care Team (Latest Contact Info) Description 07/31/2025 Travel Social History Tobacco Use Types Packs/Day Years Used Date Smoking Tobacco: Every Day Cigarettes 09 19 Started: 08/20/1994 Passive Smoke Exposure: Never Smokeless [...] documented as of this encounter Care Teams Clothespin Drier Operator Relationship Specialty Start Date End Date Rick Salcedo MD [facility] 2A [id number] PCP - General 12/31/20 documented as of this encounter
--- OUTSIDE RECORDS SUMMARY | 2025-08-11 13:01 | XMS_ITS | Encounter Summary ---
Author Organization Healthcare Address [address] [place] [address] Care Team Providers Care Art History Instructor Name Role Phone Rick Salcedo MD Primary Care Provider [phone] Encounter Details Date Type Department Care Team ([facility] st Contact Info) Description 03/31/2025 Orders Only External Location [address] [place] [address] [place] [id number] Social History Tobacco Use Types Packs/Day Years [...] Shawna ging 03/31/2025 10:0 6 AM EDT Rick Salcedo MD IMG XR PROCEDURES Final Result documented in this encounter Visit Diagnoses Not on filedocumented in this encounter Additional Health Concerns Assessment Noted Time A fall risk assessment has been complete d for the patient 12/07/2023 8:56 AM EDT A Body Mass Index follow-up plan has been documented for the patient 12/07/2023 10:32 AM EDT documented as of this encounter Care Teams Art History Instructor Relationship Specialty Start Date End Date Rick Salcedo MD [facility] [address] PCP - General 12/31/20 documented as of this encounter
--- OUTSIDE RECORDS SUMMARY | 2025-08-11 13:01 | XMS_ITS | Encounter Summary ---
Author Organization [employer] ([place], [place], [place], [place], [place]) Address [address] [place] [address] Care Team Providers Care Weed Science Research Technician Name Role Phone Unavailable Primary Care Provider Unavailabl e Encounter Details Date Type Department Care Team (Late st Contact Info) Description 06/18/2020 Transcribed Document [facility] Radiology [address] [place] [address] Provider, Tyrone Esquivel MD Social [...] list: All Problems Anxiety / SNOMED CT 23023467 / Confirmed Elevated liver enzymes / SNOMED CT 1234467892 / Confirmed Mononucleosis / SNOMED CT 425934931 / Confirmed Insomnia / SNOMED CT 896591781 / Confirmed, Active Problems (4) Anxiety Elevated [...] EDT Height Source Stated Height Entry Format [place] Height/Length, SINHALA (ft) 5 ft Height/Length SINHALA 2 Inch CLINICALHEIGHT 157.48 cm [place] Body Weight 50 kg Weight Source Standing scale Weight Entry Format [place] Weight Latvian lb 159 lb CLINICALWEIGHT 72.27 kg Body [...] % 32.8 % Lymph # 2.70 K/uL [place] % 9.2 % [place] # 0.76 K/uL [place] % 1.7 % [...]
--- OUTSIDE RECORDS SUMMARY | 2025-08-11 13:01 | XMS_ITS | Clinical Summary ---
Author Organization Healthcare Address [address] [place] [address] Care Team Providers Care Director Of Research And Development Name Role Phone Rick Salcedo MD Primary Care Provider [phone] Allergies Active Allergy Reactions Criticality Noted Date [...] morning. 4 Active Lancets (OneTouch Delica Plus [id number]) misc 4 Active losartan-hydroCH LOROthiazide (Hyzaar) 50-12.5 [...] same time. 30 patch 1 4 Active Additional Information Patient not taking.Reported on 04/16/2025 nicotine polacrilex (Nicorette) 4 MG gum Chew 1 each (4 mg) if needed for smoking cessation. 100 each 4 Active Additional Information Patient not taking.Reported on 04/16/2025 albuterol 108 (90 Base) MCG/ACT inhalerIndicatio ns:Subacute cough,ILD (interstitial lung disease) (CMS/HCC) Inhale 2 puffs 4 (four) times a day. 1 each 3 4 Active Additional Information Patient not taking.Reported on 04/16/2025 Repatha SureClick 140 MG/ML solution auto-injector autoinjector 5 Active semaglutide (Rybelsus) 7 MG tablet Take 7 mg by mouth. Active SITagliptin-metF ORMIN (Janumet) 50-1000 MG tablet Take 1 tablet by mouth 2 times a day with meals. Active lidocaine (Xylocaine) 5 % ointmentIndicati ons:Chronic left hip pain,Trochanteri c bursitis of left hip Apply twice daily to left hip 50 g 1 5 Active Encounters Date Type Department Care Team Description 07/31/2025 7:08 AM EST - 07/31/2025 11:59 PM EST Hospital Encounter [facility] Radiology [address] [place] [id number] Chronic left hip pain; Trochanteric bursitis of left hip Discharge Disposition: Home or Self Care 07/31/2025 Travel from Last 3 Months Social History Tobacco Use Types Packs/Day Years Used Date Smoking Tobacco: Every Day Cigarettes 1 31 Started: 08/20/1994 Passive Smoke Exposure: Never Smokeless Tobacco: Never Tobacco Cessation:Ready to Q uit: No; Counseling Given: No Comments:Smoking for 20 years Alcohol Use Standard Drinks/Week Comments No 0 [...] Reading Time Taken Comments Blood Pressure 99/63 04/16/2025 2:16 PM EDT Pulse 90 04/16/2025 2:16 PM EDT Temperature 36.8 C (98.3 F) 12/07/2023 8:57 AM EDT Respiratory Rate 18 04/16/2025 2:16 PM EDT Oxygen Saturation 96% 04/16/2025 2:16 PM EDT Inhaled Oxygen Concentration - - Weight 72.6 kg (160 lb 0.9 oz) 07/31/2025 7:12 A M EST Height 157.5 cm (5' 2 ) 04/16/2025 2:16 PM EDT Body Mass Index 29.27 04/16/2025 2:16 PM EDT Plan of Treatment Health Maintenance Due Date Last Done Comments [facility]-HIV Screening 1965 [facility]-Hepatitis C Screening 1965 [facility]-Infant/Child/Adol SDOH Screenings 1965 [facility]- SDOH Screenings 1983 [facility]-Adult SDOH Screenings 1983 [facility]-DTaP,Tdap,and Td Vaccine s (1 - Tdap) 1984 [facility]-Pneumococcal Vaccine: 50 + Years (1 of 2 - PCV) 1984 [facility]-Zoster Vaccines (1 of 2) 1984 CT Colonography 2010 Colonoscopy 2010 FIT-DNA 2010 FIT 2010 FOBT 2010 Sigmoidoscopy 2010 [facility]-Colorectal Cancer Screening 2010 Lung Cancer Screening Shared Decision Making 2015 [facility]-Breast Cancer Screening 2015 [facility]-RSV Vaccine: 60+ Years o r (1 - Risk 50-74 years 1-dose series) 2015 VBD-HQPQE-23 Vaccine (3 - Moderna risk series) 05/19/2021 04/21/2021, 03/24/2021 [facility]-Depression Screening 12/06/2024 12/07/2023 [facility]-Lung Cancer Screening 12/12/2024 12/13/2023 [facility]-Influenza Vaccine (#1) 04/20/202506/12, 05/01/2017 [facility]-Obesity Intervention Completed 025, 12/07/2023 HPV Vaccines (No Doses Required) Completed [facility]-HIB Vaccines Aged Out No longer e [...] on patient's age to complete this topic Procedures Procedure Name Priority Date/Time Associated Diagnosis Comments MR HIP LEFT W AND WO IV CONTRAST Routine 07/31/2025 7:44 AM EST Chronic left hip pain Trochanteric bursitis of left hip CT CHEST WO IV CONTRAST Routine 12/13/2023 11:23 AM EDT Chronic cough ILD (interstitial lung disease) (CMS/HCC) from Last 3 Months or Most Recently Relevant to Health Maintenance Results * MR Hip Left w and [...] Bosch MD on 58:33 AM Marlene RAMÍREZ IM MRI PROCEDURES Final Resu lt * CT Chest wo IV Contrast (12/13/2023 11:23 AM EDT) Anatomical Region Laterality Modality Chest Computed Tomogra phy Impressions 12/13/2023 2:57 PM EDT Scarring/atelectasis at the right upper lobe, likely postinfectious or inflammatory. Mild smoking-related emphysema, inflammatory airways disease, and probable respiratory bronchiolitis CRITICAL RESULT: No. COMMUNICATION: Per this written report. By electronically signing this report, I, the attending physician, attest that I have personally reviewed the images/data for the above examination(s) and agree with the final edited report. Drafted by Priya Ames MD on 12/13/2023 11:46 AM Final report signed by Rick Marcos MD on 12/13/2023 2:57 PM Narrative 12/13/2023 2:57 PM EDT CLINICAL INDICATION: Diffuse/interstitial lung disease TECHNIQUE: Multiple axial CT images obtained from thoracic inlet through upper abdomen without administration of IV contrast per CT High resolution chest protocol. Additional HRCT images were obtained in inspiration, expiration, and prone position. Total DLP (Dose-Length Product): 850.84 mGy.cm. Please note: The reported value represents the total of one or more individual components during the CT acquisition on this date and at this time, and as such, the same value may appear in more than one CT report depending on the interpreting/reporting physicians. COMPARISON: None. FINDINGS: Mediastinum and Pleura: No mediastinal or hilar adenopathy. No pleural or pericardial effusion. Mild coronary artery calcification. Lungs: Scarring/atelectasis is observed at the right upper lobe. Evaluation for trapping is limited as no adequate expiration was observed. Mild emphysema and diffuse bronchial wall thickening. Mild centrilobular groundglass. Upper Abdomen: No suspicious lesions in the partially visualized upper abdomen. Morphologic changes of hepatocellular disease. The spleen is enlarged measuring 14 cm AP, likely representing changes of portal hypertension setting of hepatocellular disease. Musculoskeletal: No suspicious lytic or sclerotic lesion. Mild degenerative changes of the thoracic spine. Procedure Note Rick Marcos MD - 12/13/2023 CLINICAL INDICATION: Diffuse/interstitial lung disease TECHNIQUE: Multiple axial CT images obtained from thoracic inlet through upperabdomen without administration of IV contrast per CT High resolution chestprotocol. Additional HRCT images were obtained in inspiration, expiration,and prone position. Total DLP (Dose-Length Product): 850.84 mGy.cm. Please note: The reportedvalue represents the total of one or more individual components during theCT acquisition on this date and at this time, and as such, the same valuemay appear in more than one CT report depending on theinterpreting/reporting physicians. COMPARISON: None. FINDINGS: Mediastinum and Pleura: No mediastinal or hilar adenopathy. No pleural orpericardial effusion. Mild coronary artery calcification. Lungs: Scarring/atelectasis is observed at the right upper lobe.Evaluation for trapping is limited as no adequate expiration was observed.Mild emphysema and diffuse bronchial wall thickening. Mild centrilobulargroundglass. Upper Abdomen: No suspicious lesions in the partially visualized upperabdomen. Morphologic changes of hepatocellular disease. The spleen isenlarged measuring 14 cm AP, likely representing changes of portalhypertension setting of hepatocellular disease. Musculoskeletal: No suspicious lytic or sclerotic lesion. Milddegenerative changes of the thoracic spine. IMPRESSION: Scarring/atelectasis at the right upper lobe, likely postinfectious orinflammatory. Mild smoking-related emphysema, inflammatory airways disease, and probablerespiratory bronchiolitis CRITICAL RESULT: No. COMMUNICATION: Per this written report. By electronically signing this report, I, the attending physician, mariathat I have personally reviewed the images/data for the aboveexamination(s) and agree with the final edited report. Drafted by Priya Ames MD on 12/13/2023 11:46 AM Final report signed by Rick Marcos MD on 12/13/2023 2:57 PM Camille Akins MD IMG CT PROCEDURES Final Res ult from Last 3 Months or Most Recently Relevant to Health Maintenance Insurance Care Teams Director Of Research And Development Relationship Specialty Start Date End Date Rick Salcedo MD [facility] [address] PCP - General 12/31/20
--- OUTSIDE RECORDS SUMMARY | 2025-08-11 13:01 | XMS_ITS | Encounter Summary ---
Author Organization [employer] ([place], [place], [place], [place], [place]) Address [address] [place] [address] Care Team Providers Care Meal Cooker Name Role Phone Unavailable Primary Care Provider Unavailabl e Encounter Details Date Type Department Care Team (Late st Contact Info) Description 06/18/2020 Transcribed Document [facility] Radiology [address] [place] [address] Provider, Tyrone Esquivel MD Social [...] Miscellaneous Notes * Cerner Conversion Note - [facility] ProviderMD - 06/18/2020 2:06 PM EDT Nursing [...]
--- NOTE | 2025-08-11 13:04 | CT_ITS ---
FINAL REPORT TECHNIQUE: Thin section axial CT with contrast with multiplanar reconstruction This study was performed with techniques to keep radiation doses as low as reasonably achievable, (ALARA). Individualized dose reduction techniques using automated exposure control or adjustment of mA and/or kV according to the patient's size were employed. CLINICAL HISTORY: THORACIC AORTIC ECTASIA COMPARISON: LDCT 04/10/2025, CT of the chest 01/19/2024 FINDINGS: CTA CHEST: Changes of emphysema are present. No acute pulmonary abnormality is identified. Pulmonary vessels enhance in normal fashion without evidence of embolism. There is ectasia of the ascending aorta measuring up to 37 mm in diameter, stable when compared to the prior exam. No pulmonary mass or infiltrate is present. There is no significant pleural effusion. There is no significant pericardial effusion. There is right infrahilar adenopathy, measuring up to 17 x 9 mm, unchanged since the exam of 01/19/2024. IMPRESSION: No acute intrathoracic abnormality is identified. 2. Ectatic ascending aorta measuring up to 37 mm in diameter, stable. Reviewed, Interpreted and Dictated by Skip Barron MD Transcribed by Mya Price Authenticated and [facility]
--- NOTE | 2025-08-11 13:04 | CT_ITS ---
FINAL REPORT TECHNIQUE: Noncontrast exam This study was performed with techniques to keep radiation doses as low as reasonably achievable, (ALARA). Individualized dose reduction techniques using automated exposure control or adjustment of mA and/or kV according to the patient''s size were employed. CLINICAL HISTORY: knot on forehead that comes and goes FINDINGS: No abnormal density is seen. Ventricles are normal. There is no hemorrhage. No mass effect is seen. Bone windows show no evidence of fracture. The calvarium is unremarkable. No obvious scalp mass is identified. There is minimal fluid in the left maxillary sinus suggestive of sinusitis. IMPRESSION: No acute findings. Reviewed, Interpreted and Dictated by Skip Barron MD Transcribed by Ysabel Rodas Authenticated and [facility]
--- NOTE | 2025-08-11 13:04 | CT_ITS ---
FINAL REPORT TECHNIQUE: Oral and IV contrast enhanced exam This study was performed with techniques to keep radiation doses as low as reasonably achievable, (ALARA). Individualized dose reduction techniques using automated exposure control or adjustment of mA and/or kV according to the patient's size were employed. CLINICAL HISTORY: HEMATURIA, recurrent uti's oral and iv contrast COMPARISON: 01/19/2024 FINDINGS: CT ABDOMEN PELVIS WITH CONTRAST: Abdomen: The gallbladder is surgically absent. Liver has an unremarkable CT appearance. The spleen, pancreas and adrenal glands are unremarkable. Kidneys show no mass or obstruction. There are numerous small retroperitoneal nodes, which have improved since the prior exam of 2023, most likely benign. No bowel obstruction or fluid collection is seen. Pelvis: The appendix is normal in appearance. Mild fecal impaction without evidence of obstruction or wall thickening is present. No fluid collection or adenopathy is seen. The uterus has been surgically resected. The bladder is unremarkable. IMPRESSION: 1. No findings are present to account for hematuria. 2. Improved retroperitoneal adenopathy, since the prior exam of 01/19/2024, consistent with benign etiology. Reviewed, Interpreted and Dictated by Skip Barron MD Transcribed by Mya Price Authenticated and [facility]
[2025-08-11] MEDS: IOPAMIDOL-370 (76%);100ML BOTTLE 80 ML IV (13:45)
[2025-08-11] MEDS: SODIUM CHLORIDE 0.9% 10ML SYR (RAD ONLY) 10 ML IV (13:45)
[2025-08-11] MEDS: 0.9 % SODIUM CHLORIDE 50 ML VIAL IV (13:45)
== END 2025-08-11 23:59 | disposition home or self-care (01) ==
LOC: RAD 12:58
PROVIDERS: PCP Internal Medicine Adolescent Medicine; Visit Provider Internal Medicine Adolescent Medicine
DX: I77.810 Thoracic aortic ectasia (principal); M95.2 Other acquired deformity of head; R31.29 Other microscopic hematuria; R59.0 Localized enlarged lymph nodes
CPT/HCPCS: 70450; 71275; 74177; Q9967